=== PATIENT | female | born 1945 | race Caucasian/White ===

== ENCOUNTER 2020-08-26 14:51 | Emergency (ER) | payer MEDICARE, OTHER, SELFPAY ==
[2020-08-26 15:17] VITALS: BP 188/63; PULSE 73; RESP 14; TEMP 36.6; O2SAT 95; BMI 25.5
--- NOTE | 2020-08-26 15:21 | XRR_ITS ---
PROCEDURE INFORMATION: Exam: XR Chest, 1 View Exam date and time: 08/26/2020 3:23 PM Age: 75 years old Clinical indication: Cough and dyspnea; Additional info: Dyspnea/cough TECHNIQUE: Imaging protocol: XR of the chest Views: 1 view. COMPARISON: No relevant prior studies available. FINDINGS: Lungs: Mild interstitial congestion right lower lobe. No consolidation. Pleural spaces: Large left lower lobe pleural effusion. No pneumothorax. Heart/Mediastinum: Unremarkable. No cardiomegaly. Bones/joints: Unremarkable. XR/XR chest 1V portable [id number] IMPRESSION: 1. Large left lower lobe pleural effusion. 2. Mild interstitial congestion right lower lobe 3. Otherwise no acute findings.
--- NOTE | 2020-08-26 15:22 | ECG_ITS ---
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 Measurements Intervals [place] Rate: 72 P: 49 CO: 171 QRS: 47 QRSD: 73 T: 33 QT: 354 QTc: 388 Interpretive Statements SINUS RHYTHM WITH SINUS ARRHYTHMIA LOW QRS VOLTAGE [QRS DEFLECTION < 0.5/1.0 mV IN LIMB/CHEST LEADS] ANTEROSEPTAL MYOCARDIAL INFARCTION [40+ ms Q WAVE IN V1-V4], OF INDETERMINATE AGE No previous ECG available for comparison Electronically Signed On 08-26-2020 16:17:16 ROCKET MOTOR TESTER by Gil Gardner M.D. [id number]
[2020-08-26 15:40] LABS: Basophils # 0.1 10^3/uL (0.0-0.1); Basophils % 0.8 %; Eosinophils # 0.1 10^3/uL (0.0-0.8); Eosinophils % 1.3 %; Hematocrit 31.6 % (37.0-47.0); Hemoglobin 10.2 g/dL (11.5-15.3); Lymphocytes # 1.7 10^3/uL (0.8-4.8); Lymphocytes % 15.8 %; Mean Corpuscular HGB Conc 32.3 g/dL (30.0-36.0); Mean Corpuscular Hemoglobin 30.3 pg (28.0-34.0); Mean Corpuscular Volume 93.8 fL (81-99); Mean Platelet Volume 10.1 fL (7.4-10.4); Monocytes # 0.9 10^3/uL (0.2-0.9); Neutrophils # 7.87 10^3/uL (1.8-7.7); Neutrophils % 73.7 %; Nucleated Red Blood Cells % 0 %; Platelet Count 297 10^3/cmm (130-400); Red Blood Count 3.37 10^6/uL (4.1-5.3); Red Cell Distribution Width 15.4 % (12.1-15.1); White Blood Count 10.7 10^3/uL (4.0-10.0)
--- NOTE | 2020-08-26 15:40 | XRR_ITS ---
PROCEDURE INFORMATION: Exam: XR Chest, 3 Views Exam date and time: 08/26/2020 3:42 PM Age: 75 years old Clinical indication: Shortness of breath; Additional info: L pleural effusion TECHNIQUE: Imaging protocol: XR of the chest Views: 3 views. COMPARISON: CR (CHEST, ) 08/26/2020 3:20 PM FINDINGS: Lungs: A single decubitus view is presented the right side is down. The opacity seen in the left lung appears similar. No evidence of effusion is seen in the right lung. Pleural spaces: Left lower lobe pleural effusion. No pneumothorax. Heart/Mediastinum: Unremarkable. No cardiomegaly. Bones/joints: Unremarkable. Other findings: Repeat examination with the left-side down is recommended. XR/XR chest LT decubitus [id number] IMPRESSION: 1. Stable left lower lobe pleural effusion. 2. Negative for right side pleural effusion
--- NOTE | 2020-08-26 15:42 | W.ED.SOB ---
HPI - SOB/Dyspnea General: Chief Complaint: Shortness of Breath/Dyspnea Stated Complaint: Chest Pain, SOB Time Seen by Provider: 08/26/20 15:21 History of Present Illness: HPI Narrative: 75-year-old female presents to the emergency room with complaints of shortness of breath. She has also had some chest pain. They recently moved to this area from [place]. Her chest pain has mostly resolved. She does have some moderate dementia. She denies any nausea vomiting or diarrhea denies any fever minimally productive cough patient has a history of COPD and is a former smoker just quit smoking a few months ago. 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.) Associated symptoms: Reports cough; Deny abdominal pain, chest congestion, chest pain, diaphoresis, dizziness, extremity pain, fever(s), hemoptysis, lightheadedness, myalgias, nausea, orthopnea, palpitations, paresthesias, polydipsia, polyuria, rash, sense of impending doom, syncope or vomiting Review of Systems Const: Denies: fever(s) or diaphoresis Card: Denies: chest pain, palpitations, lightheadedness, syncope or orthopnea Resp: Denies: hemoptysis or chest congestion GI: Denies: abdominal pain, nausea or vomiting Musc: Denies: extremity pain Neuro: Denies: dizziness Endo: Denies: polyuria or polydipsia Physical Exam Const: COMMON NORMALS: no acute distress GENERAL APPEARANCE: cooperative and comfortable ORIENTATION/CONSCIOUSNESS: Yes awake, Yes oriented to person, Yes oriented to place and Yes oriented to time HENMT: COMMON NORMALS: normocephalic, atraumatic and hearing grossly normal bilaterally HEAD & SCALP: normocephalic and atraumatic Neck/C-Spine: COMMON NORMALS: no JVD Resp: COMMON NORMALS: normal respiratory effort, No retractions and No use of accessory muscles AUSCULTATION: crackles (Left base) Laterality: left Cardio: COMMON NORMALS: no JVD, regular rate, regular rhythm and No murmurs present (Cardio) RATE: regular rate RHYTHM: regular rhythm GI: COMMON NORMALS: Soft to palpation and No hepatosplenomegaly present AUSCULTATION: Yes normoactive bowel sounds PALPATION: Yes Soft to palpation, No Tenderness to palpation present (GI), No Guarding due to palpation present (GI) and Yes No hepatosplenomegaly present Extremity: COMMON NORMALS: normal to inspection, capillary refill normal, no clubbing, cyanosis or edema, no calf tenderness and no pedal edema Neuro: SENSORIUM/ORIENTATION: Yes oriented to person, Yes oriented to place and Yes oriented to time Skin: COMMON NORMALS: no rashes or lesions noted GENERAL SKIN EXAM: no rashes or lesions noted Course Vital Signs: Vital signs: Vital Signs Temperature 97.9 F 08/26/20 15:17 Pulse Rate 76 08/26/20 17:11 Respiratory Rate 21 H 08/26/20 17:11 Blood Pressure 189/78 08/26/20 17:11 Pulse Oximetry 94 08/26/20 17:11 MDM - SOB/Dyspnea MDM Narrative: Medical decision making narrative: Discussed with the patient and the daughter with her she has had this previously and she has had a left pleural effusion that has been been drained by thoracentesis at her doctor in [place]. She is stable now and I will think there is enough and there to warrant a thoracentesis at this point we will go ahead and discharge her home she would prefer not to go with any procedures at the moment. She does report chronic renal disease as well. Organ to go ahead and discharge her home and set her up to see Dr. Espinosa or malcom in the next few days. If she has any worsening problems return. Lab Data: Labs: Lab Results 08/26/20 08/26/20 08/26/20 Range/Units 15:33 15:33 15:33 WBC 10.7 H (4.0-10.0) 10^3/ uL RBC 3.37 L (4.1-5.3) 10^6/u L Hgb 10.2 L (11.5-15.3) g/dL Hct 31.6 L (37.0-47.0) % MCV 93.8 (81-99) fL MCH 30.3 (28.0-34.0) pg MCHC 32.3 (30.0-36.0) g/dL RDW 15.4 H (12.1-15.1) % Plt Count 297 (130-400) 10^3/c mm MPV 10.1 (7.4-10.4) fL Neut % (Auto) 73.7 % Lymph % (Auto) 15.8 % [place] % (Auto) 8.0 % Eos % (Auto) 1.3 % Baso % (Auto) 0.8 % Neut # (Auto) 7.87 H (1.8-7.7) 10^3/u L Lymph # (Auto) 1.7 (0.8-4.8) 10^3/u L [place] # (Auto) 0.9 (0.2-0.9) 10^3/u L Eos # (Auto) 0.1 (0.0-0.8) 10^3/u L Baso # (Auto) 0.1 (0.0-0.1) 10^3/u L Nucleated RBC % (a uto) 0 % Nucleated RBCs # 0.0 /100WBC Sodium 136 (136-145) mmol/L Potassium 4.3 (3.5-5.1) mmol/L Chloride 105 (98-107) mmol/L Carbon Dioxide 15 L (22-29) mmol/L Anion Gap 20.3 H (5-19) BUN 66 H (8-23) mg/dL Creatinine 3.7 H (0.5-0.9) mg/dL GFR Calculation Not Reportable Glucose 124 H (65-115) mg/dL Calculated Osmolal ity 302 H (285-295) mOsm/k g Calcium 9.1 (8.5-10.5) mg/dL Total Bilirubin 0.5 (0.15-1.2) mg/dL AST 12 (0-32) U/L ALT 6 (0-33) U/L Alkaline Phosphata se 76 (35-105) IU/L Troponin T Baselin e 61 H (0-10) ng/L Total Protein 6.3 L (6.6-8.7) g/dL Albumin 3.6 (3.5-5.2) g/dL Globulin 2.7 (1.3-4.6) g/dL Discharge Plan Discharge Patient Disposition: Home Clinical Impression: Pleural effusion, Congestive heart failure, COPD (chronic obstructive pulmonary disease) Condition: Stable Prescriptions: No Action atorvastatin 40 mg Tablet 40 mg PO BEDTIME@1900 RF: 0 amlodipine 5 mg Tablet 5 mg PO BID@0700,1900 RF: 0 isosorbide mononitrate 60 mg Tablet Extended Release 24 Hr 60 mg PO BID@ RF: 0 clonidine HCl 0.2 mg Tablet 0.2 mg PO BID@0700,190 RF: 0 Xanax 0.25 mg Tablet 0.25 - 0.5 mg PO DAILY PRN (Reason: Anxiety) RF: 0 Vitamin C 500 mg Tablet 500 mg PO DAILY@190 RF: 0 hydralazine 100 mg Tablet 100 mg PO TID@,, RF: 0 pantoprazole 40 mg Tablet,Delayed Release (Dr/Ec) 40 mg PO DAILY@0700 RF: 0 ferrous sulfate 325 mg (65 mg iron) Tablet 325 mg PO DAILY@1900 RF: 0 ibuprofen 200 mg Tablet 400 mg PO ONCE PRN (Reason: Pain) RF: 0 Lasix 20 mg Tablet See Rx Instructions .ROUTE .COMPLEX RF: 0 albuterol sulfate 90 mcg/actuation Hfa Aerosol Inhaler 2 puff INHALATION 6XD PRN (Reason: Shortness Of Breath) RF: 0 duloxetine 20 mg Capsule,Delayed Release(Dr/Ec) 20 mg PO DAILY@07 RF: 0 Vitamin D3 50 mcg (2,000 unit) Capsule 50 mcg PO DAILY@1900 RF: 0 potassium chloride 20 mEq Tablet Extended Release See Rx Instructions .ROUTE .COMPLEX RF: 0 Discharge Orders: Discharge ED (Routine); Ordered 08/26/20 Ordered By: Ashish Suarez Referrals: Irasema Charles MD [Primary Care Provider] - Cat Espinosa MD [Physician] - Discharge Diet: Usual diet Discharge Activity: Resume usual activity Activity Restrictions/Additional Instructions: Case management will call to set up an appointment with Dr. Espinosa for you. if you have worsening problems return to the emergency room Coding Level of Care Code ED Tear Down Man for Faye Fwd Exam Comprehensive
[2020-08-26 15:56] LABS: Alanine Aminotransferase 6 U/L (0-33); Albumin Level 3.6 g/dL (3.5-5.2); Alkaline Phosphatase 76 IU/L (35-105); Anion Gap 20.3 (5-19); Aspartate Amino Transferase 12 U/L (0-32); Blood Urea Nitrogen 66 mg/dL (8-23); Calcium 9.1 mg/dL (8.5-10.5); Carbon Dioxide 15 mmol/L (22-29); Chloride 105 mmol/L (98-107); Globulin 2.7 g/dL (1.3-4.6); Glucose 124 mg/dL (65-115); Osmolality Calculated 302 mOsm/kg (285-295); Potassium 4.3 mmol/L (3.5-5.1); Sodium 136 mmol/L (136-145); Total Bilirubin 0.5 mg/dL (0.15-1.2); Total Protein 6.3 g/dL (6.6-8.7)
[2020-08-26 15:57] LABS: Troponin(5th) Baseline 61 ng/L (0-10)
[2020-08-26 17:10] VITALS: BP 187/74; PULSE 77; RESP 20; O2SAT 94
[2020-08-26 17:11] VITALS: BP 189/78; PULSE 76; RESP 21; O2SAT 94
--- NOTE | 2020-08-30 11:26 | DCPLANNER ---
late entry - test case developer had message to schedule a follow up appointment for patient with [facility]. architectural practice manager called [facility], spoke with Caryn, gave patients information to clinic. A follow up appointment was scheduled for 08.29.20 - patient did attend appointment.
== END 2020-08-26 17:14 | disposition home or self-care (01) ==
PROVIDERS: Emergency Provider Family Medicine; PCP Family Medicine
DX: J90 Pleural effusion, not elsewhere classified (principal); I11.0 Hypertensive heart disease with heart failure; I50.9 Heart failure, unspecified; J44.9 Chronic obstructive pulmonary disease, unspecified; F03.90 Unspecified dementia, unspecified severity, without behavioral disturbance, psychotic disturbance, mood disturbance, and anxiety
CPT/HCPCS: 12345; 71045; 80053; 84484; 85025; 93005; 99282; 99283

== ENCOUNTER 2020-08-30 20:57 | Inpatient (IN) | payer MEDICARE, OTHER, SELFPAY ==
[2020-08-30] VITALS (8 sets, daily range): BP systolic 159–165; BP diastolic 48–59; PULSE 75–79; RESP 14–18; TEMP 36.7; O2SAT 92–94; BMI 25.5
--- NOTE | 2020-08-30 21:06 | ECG_ITS ---
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 Measurements Intervals [place] Rate: 80 P: 46 RI: 157 QRS: 49 QRSD: 80 T: 68 QT: 351 QTc: 405 Interpretive Statements SINUS RHYTHM WITH OCCASIONAL VENTRICULAR PREMATURE COMPLEXES LOW QRS VOLTAGE IN PRECORDIAL LEADS [QRS DEFLECTION < 1.0 mV IN CHEST LEADS] NONSPECIFIC ST & T-WAVE ABNORMALITY Compared to ECG 08/26/2020 15:15:30 Ventricular premature complex(es) now present T-wave abnormality now present Sinus arrhythmia no longer present Myocardial infarct finding no longer present Electronically Signed On 08-31-2020 20:25:51 ASSURANCE ENGINEER by Natalie De La Torre M.D. [id number]
--- NOTE | 2020-08-30 21:06 | XRR_ITS ---
PROCEDURE INFORMATION: Exam: XR Chest, 1 View Exam date and time: 08/30/2020 9:25 PM Age: 75 years old Clinical indication: Chest pain; Additional info: Cp TECHNIQUE: Imaging protocol: XR of the chest Views: 1 view. COMPARISON: CR (CHEST, ) 08/26/2020 3:54 PM FINDINGS: Lungs: Unremarkable. No consolidation. Pleural spaces: Pleural fluid on the right has increased. Left pleural fluid is either stable or slightly decreased. Heart/Mediastinum: Heart partially obscured but suspected to be enlarged and without obvious change. Bones/joints: No acute findings. XR/XR chest 1V portable [id number] IMPRESSION: Increase in right pleural fluid and stable or slightly decreased left pleural fluid. Pleural fluid bilaterally is moderate to large.
--- NOTE | 2020-08-30 21:29 | ED_ITS ---
HPI - Chest Pain General: Chief Complaint: Chest Pain Stated Complaint: SOB/CHEST TIGHTNESS Time Seen by Provider: 08/30/20 21:00 Source: patient and EMS Mode of arrival: EMS Limitations: no limitations History of Present Illness: HPI narrative: 75-year-old female who has a history of COPD along with dementia. Patient seen Dr. Christian Scott last week and was prescribed an albuterol nebulizer. Patient states she is continued have some shortness of breath. She is in no distress here currently is 95% on room air. She had mild chest pain. She denies any worsening. Factors. Denies any fever. Associated symptoms: Reports dyspnea; Deny abdominal pain, fever(s), nausea or vomiting Review of Systems Const: Denies: fever(s), chills, body aches or change in appetite Eyes: Denies: blurry vision or eye discomfort ENMT: Denies: throat pain or dental pain Card: Reports: chest pain Resp: Reports: dyspnea GI: Denies: abdominal pain, nausea, vomiting or diarrhea : Denies: dysuria Musc: Denies: neck pain or back pain Skin/Breast: Denies: rash Neuro: Denies: headache(s) Psych: Denies: depression Sunday/Lymph: Denies: easy bruising All/Imm: Denies: urticaria PFSH ED PFSH: Medical History Anemia Barretts esophagus Dementia Renal failure Stenosis of peripheral vascular stent Type 2 diabetes mellitus Surgical History History of renal stent History of thoracentesis Stented coronary artery Family History Son Diabetes Brother Cancer Sister Lung disease Father Cirrhosis Mother CAD (coronary artery disease) Social History Smoking and tobacco status: former smoker Quit status (tobacco): has quit using tobacco Year quit tobacco: 2020-Hx of 1PPD x 60 Year Second hand smoke exposure: Yes Smoking risk assessment/counseling performed?: No Alcohol intake: current Alcohol intake frequency: holidays/special occasions only Alcohol type: wine Counseling given: No Counseling given: No Caregiver/support person: Yes Lives independently: Yes Household members: family Marital status: / Current occupational status: retired History of recent travel: No Current gender identity: Female Physical Exam Const: COMMON NORMALS: no acute distress, patient oriented x3 and healthy appearing HENMT: COMMON NORMALS: normocephalic and atraumatic HEAD & SCALP: normocephalic and atraumatic Eye: COMMON NORMALS: Equal, round and reactive pupils present and EOMs intact bilaterally PUPIL: Yes Equal, round and reactive pupils present Neck/C-Spine: COMMON NORMALS: full ROM and supple Chest: COMMONS NORMALS: normal inspection of the chest and normal palpation of entire chest wall Resp: COMMON NORMALS: normal respiratory effort, No retractions, No use of accessory muscles and clear to auscultation bilaterally AUSCULTATION: clear to auscultation bilaterally Cardio: COMMON NORMALS: regular rate, regular rhythm and No murmurs present (Cardio) RATE: regular rate RHYTHM: regular rhythm GI: COMMON NORMALS: Normal to inspection, nondistended, normoactive bowel sounds present, Soft to palpation, non-tender and no masses PALPATION: Yes Soft to palpation Extremity: COMMON NORMALS: normal to inspection and full ROM Neuro: COMMON NORMALS: patient oriented x3, moves all extremities and no focal motor deficits Psych: COMMON NORMALS: mental status grossly normal, Normal thought process present and cooperative THOUGHT PROCESS: Normal thought process present Skin: COMMON NORMALS: no rashes or lesions noted and no wounds GENERAL SKIN EXAM: no rashes or lesions noted Course Vital Signs: Vital signs: Vital Signs Temperature 98.1 F 08/30/20 21:07 Pulse Rate 77 08/30/20 21:11 Respiratory Rate 17 08/30/20 21:11 Blood Pressure 159/59 08/30/20 21:11 Pulse Oximetry 93 08/30/20 21:11 MDM - Chest Pain MDM Narrative: Medical decision making narrative: Patient presents here with dyspnea likely from her COPD. She is in no severe distress here. Patient is found to be anemic. Her hemoglobin here is 6.5 and will require transfusion. I did a rectal exam showed brown stool but was Hemoccult positive. She has no sig ns of massive GI bleed at this time. I did consult Dr. Hines and I spoke to hospitalist will admit. Lab Data: Labs: Lab Results 08/30/20 08/30/2008/30/21 Range/Units 21:20 21:20 21:20 WBC 9.6 (4.0-10.0) 10^3/ uL RBC 2.16 L (4.1-5.3) 10^6/u L Hgb 6.5 L* (11.5-15.3) g/dL Hct 21.0 L (37.0-47.0) % MCV 97.2 (81-99) fL MCH 30.1 (28.0-34.0) pg MCHC 31.0 (30.0-36.0) g/dL RDW 15.8 H (12.1-15.1) % Plt Count 235 (130-400) 10^3/c mm MPV 10.9 H (7.4-10.4) fL Neut % (Auto) 90.0 % Lymph % (Auto) 5.4 % [place] % (Auto) 3.7 % Eos % (Auto) 0.1 % Baso % (Auto) 0.3 % Neut # (Auto) 8.67 H (1.8-7.7) 10^3/u L Lymph # (Auto) 0.5 L (0.8-4.8) 10^3/u L [place] # (Auto) 0.4 (0.2-0.9) 10^3/u L Eos # (Auto) 0.0 (0.0-0.8) 10^3/u L Baso # (Auto) 0.0 (0.0-0.1) 10^3/u L Nucleated RBC % (a uto) 0 % Nucleated RBCs # 0.0 /100WBC Specimen Type Sample Site ABG pH (7.35-7.45) ABG pCO2 (35-45) mmHg ABG pO2 (80.0-100.0) mmH g ABG HCO3 (22-26) mmol/L ABG Base Excess (-2.0-2.0) mmol/ L Sandro Test Hematocrit (37-47) % O2 Delivery Device Supervisor Instant Potato Processing ID Sodium 137 (136-145) mmol/L Potassium 4.0 (3.5-5.1) mmol/L Chloride 106 (98-107) mmol/L Carbon Dioxide 13 L (22-29) mmol/L Anion Gap 22.0 H (5-19) BUN 79 H (8-23) mg/dL Creatinine 4.1 H (0.5-0.9) mg/dL GFR Calculation Not Reportable Glucose 142 H (65-115) mg/dL Calculated Osmolal ity 310 H (285-295) mOsm/k g Calcium 8.8 (8.5-10.5) mg/dL Total Bilirubin 0.3 (0.15-1.2) mg/dL AST 13 (0-32) U/L ALT 8 (0-33) U/L Alkaline Phosphata se 62 (35-105) IU/L Troponin T Baselin e 58 H (0-10) ng/L NT-Pro-B Natriuret Pep 7862 H (0-450) pg/mL Total Protein 5.9 L (6.6-8.7) g/dL Albumin 3.2 L (3.5-5.2) g/dL Globulin 2.7 (1.3-4.6) g/dL 08/30/20 Range/Units 22:40 WBC (4.0-10.0) 10^3/ uL RBC (4.1-5.3) 10^6/u L Hgb (11.5-15.3) g/dL Hct (37.0-47.0) % MCV (81-99) fL MCH (28.0-34.0) pg MCHC (30.0-36.0) g/dL RDW (12.1-15.1) % Plt Count (130-400) 10^3/c mm MPV (7.4-10.4) fL Neut % (Auto) % Lymph % (Auto) % [place] % (Auto) % Eos % (Auto) % Baso % (Auto) % Neut # (Auto) (1.8-7.7) 10^3/u L Lymph # (Auto) (0.8-4.8) 10^3/u L [place] # (Auto) (0.2-0.9) 10^3/u L Eos # (Auto) (0.0-0.8) 10^3/u L Baso # (Auto) (0.0-0.1) 10^3/u L Nucleated RBC % (a uto) % Nucleated RBCs # /100WBC Specimen Type Arterial Sample Site Brachial, right ABG pH 7.40 (7.35-7.45) ABG pCO2 24.5 L (35-45) mmHg ABG pO2 63.3 L (80.0-100.0) mmH g ABG HCO3 15.0 L (22-26) mmol/L ABG Base Excess -9.0 L (-2.0-2.0) mmol/ L Sandro Test N/a Hematocrit 20.1 L (37-47) % O2 Delivery Device Room air Supervisor Instant Potato Processing ID [id number] Sodium (136-145) mmol/L Potassium (3.5-5.1) mmol/L Chloride (98-107) mmol/L Carbon Dioxide (22-29) mmol/L Anion Gap (5-19) BUN (8-23) mg/dL Creatinine (0.5-0.9) mg/dL GFR Calculation Glucose (65-115) mg/dL Calculated Osmolal ity (285-295) mOsm/k g Calcium (8.5-10.5) mg/dL Total Bilirubin (0.15-1.2) mg/dL AST (0-32) U/L ALT (0-33) U/L Alkaline Phosphata se (35-105) IU/L Troponin T Baselin e (0-10) ng/L NT-Pro-B Natriuret Pep (0-450) pg/mL Total Protein (6.6-8.7) g/dL Albumin (3.5-5.2) g/dL Globulin (1.3-4.6) g/dL EKG Data^: EKG 1: Attestation: I personally reviewed and interpreted this EKG as follows: EKG interpretation date: 08/30/20 EKG interpretation time: 21:05 Interpretation: nsr hr [address] or t wave abnormalities qrs 80 qtc 386 Discharge Plan Discharge Patient Disposition: Admitted As Inpatient Clinical Impression: COPD (chronic obstructive pulmonary disease) Qualifiers: COPD type: unspecified COPD Qualified Code(s): J44.9 - Chronic obstructive pulmonary disease, unspecified Anemia Qualifiers: Anemia type: unspecified type Qualified Code(s): D64.9 - Anemia, unspecified Condition: Stable Coding Level of Care Code ED Entry Level Sales Associate for g Fwd Exam Comprehensive
[2020-08-30 21:41] LABS: Basophils % 0.3 %; Eosinophils % 0.1 %; Lymphocytes # 0.5 10^3/uL (0.8-4.8); Lymphocytes % 5.4 %; Mean Corpuscular Hemoglobin 30.1 pg (28.0-34.0); Mean Corpuscular Volume 97.2 fL (81-99); Mean Platelet Volume 10.9 fL (7.4-10.4); Monocytes # 0.4 10^3/uL (0.2-0.9); Monocytes % 3.7 %; Neutrophils # 8.67 10^3/uL (1.8-7.7); Nucleated Red Blood Cells % 0 %; Platelet Count 235 10^3/cmm (130-400); Red Blood Count 2.16 10^6/uL (4.1-5.3); Red Cell Distribution Width 15.8 % (12.1-15.1); White Blood Count 9.6 10^3/uL (4.0-10.0)
[2020-08-30 21:51] LABS: Troponin(5th) Baseline 58 ng/L (0-10)
[2020-08-30 21:58] LABS: Alanine Aminotransferase 8 U/L (0-33); Albumin Level 3.2 g/dL (3.5-5.2); Alkaline Phosphatase 62 IU/L (35-105); Aspartate Amino Transferase 13 U/L (0-32); Blood Urea Nitrogen 79 mg/dL (8-23); Calcium 8.8 mg/dL (8.5-10.5); Carbon Dioxide 13 mmol/L (22-29); Chloride 106 mmol/L (98-107); Globulin 2.7 g/dL (1.3-4.6); Glucose 142 mg/dL (65-115); NT Pro B Type Natriuretic Pept 7862 pg/mL (0-450); Osmolality Calculated 310 mOsm/kg (285-295); Sodium 137 mmol/L (136-145); Total Bilirubin 0.3 mg/dL (0.15-1.2); Total Protein 5.9 g/dL (6.6-8.7)
[2020-08-30 22:33] LABS: Hemoglobin 6.5 g/dL (11.5-15.3)
[2020-08-30] MEDS: ipratropium-albuterol 3 mL Neb INHALATION (22:40)
[2020-08-30 22:52] LABS: ABG PCO2 24.5 mmHg (35-45); Arterial Blood Gas Hematocrit 20.1 % (37-47); Blood Gas Operator Identificat HARKR; Blood Gas Sample Site Brachial, right; Blood Gas Sample Type Arterial; Oxygen Device ROOM AIR; PO2 ABG 63.3 mmHg (80.0-100.0)
--- NOTE | 2020-08-30 23:06 | ECG_ITS ---
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 Measurements Intervals [place] Rate: 79 P: 40 NE: 155 QRS: 64 QRSD: 86 T: 49 QT: 374 QTc: 430 Interpretive Statements SINUS RHYTHM WITH OCCASIONAL VENTRICULAR PREMATURE COMPLEXES LOW QRS VOLTAGE IN PRECORDIAL LEADS [QRS DEFLECTION < 1.0 mV IN CHEST LEADS] NONSPECIFIC T-WAVE ABNORMALITY Compared to ECG 08/30/2020 21:05:27 Ventricular premature complex(es) no longer present T-wave abnormality still present Electronically Signed On 08-31-2020 20:31:38 PUNCH FINISHER by Natalie De La Torre M.D. [id number]
--- NOTE | 2020-08-30 23:14 | P.HP_ITS ---
Providers/Chief Complaint Primary Care Provider: Irasema Charles MD Chief Complaint: SOB/CHEST TIGHTNESS History of Present Illness Tania Kiser is a 75 year old female with a history of GI bleed, COPD, hyperlipidemia and hypertension presented to the emergency department with a complaint of progressive shortness of breath and weakness. Patient relates that her symptoms to COPD exacerbation. Blood work in the ED demonstrated severe anemia with hemoglobin of 6.5. Chest x-ray demonstrated bilateral pleural effusion, right greater than left. Patient denied any melena or hematemesis. 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 This procedure was done in [place]. Has to is positive for Hemoccult blood. Patient states that she just moved here. Dr. Ronny tuttle was contacted and case discussed with him. He is okay with admission to the hospitalist service for him to consult. Patient is admitted for further management. Review of Systems Narrative: Except as documented, all other systems reviewed and negative. Medications/Allergies Home Medications Medication Instructions Recorded Confirmed Last Taken Type albuterol sulfate 2 puff INHALATION 6XD PRN 08/26/20 08/29/20 08/26/20 History alprazolam [Xanax] 0.25 - 0.5 mg PO DAILY PRN 08/26/20 08/29/20 08/26/20 History amlodipine 5 mg PO BID@0700,189908/26/20 08/29/20 08/26/20 History ascorbic acid (vitamin C) [Vitamin 500 mg PO DAILY@189908/26/20 08/29/20 08/25/20 History C] atorvastatin 40 mg PO BEDTIME@189908/26/20 08/29/20 08/25/20 History cholecalciferol (vitamin D3) 50 mcg PO DAILY@189908/26/20 08/29/20 08/25/20 History [Vitamin D3] clonidine HCl 0.2 mg PO BID@0700,189908/26/20 08/29/20 08/26/20 History duloxetine 20 mg PO DAILY@07 08/26/20 08/29/20 08/26/20 History ferrous sulfate 325 mg PO DAILY@189908/26/20 08/29/20 08/25/20 History furosemide [Lasix] See Rx Instructions .ROUTE .COMPLEX 08/26/20 08/29/20 08/25/20 History hydralazine 100 mg PO TID@07,12,19 08/26/20 08/29/20 08/26/20 History ibuprofen 400 mg PO ONCE PRN 08/26/20 08/29/20 08/26/20 History 400 mg isosorbide mononitrate 60 mg PO BID@07,19 08/26/20 08/29/20 08/26/20 History pantoprazole 40 mg PO DAILY@0700 08/26/20 08/29/20 08/26/20 History potassium chloride See Rx Instructions .ROUTE .COMPLEX 08/26/20 08/29/20 08/26/20 History budesonide 0.5 mg/2 mL suspension 0.5 mg INHALATION BID 30 Days #120 08/29/20 08/29/20 Unknown Rx for nebulization ml furosemide 20 mg tablet 40 mg PO DAILY 30 Days #60 tab 08/29/20 08/29/20 Unknown Rx ipratropium 0.5 mg-albuterol 3 mg 3 ml INHALATION QID 30 Days #320 ml 08/29/20 08/29/20 Unknown Rx (2.5 mg base)/3 mL nebulization soln Allergies Allergy/AdvReac Type Severity Reaction Status Date / Time No Known Allergies Allergy Verified 08/30/20 21:10 PFSH Acute PFSH: Medical History Anemia Barretts esophagus Dementia Renal failure Stenosis of peripheral vascular stent Type 2 diabetes mellitus Surgical History History of renal stent History of thoracentesis Stented coronary artery Family History Son Diabetes Brother Cancer Sister Lung disease Father Cirrhosis Mother CAD (coronary artery disease) Social History Smoking and tobacco status: former smoker Quit status (tobacco): has quit using tobacco Year quit tobacco: 2020-Hx of 1PPD x 60 Year Second hand smoke exposure: Yes Smoking risk assessment/counseling performed?: No Alcohol intake: current Alcohol intake frequency: holidays/special occasions only Alcohol type: wine Counseling given: No Counseling given: No Caregiver/support person: Yes Lives independently: Yes Household members: family Marital status: / Current occupational status: retired History of recent travel: No Current gender identity: Female Vitals/I&O/Wt Last Vital Signs Temp 98.1 F 08/30/20 21:07 Pulse 75 08/30/20 23:01 Resp 18 08/30/20 23:01 BP 163/48 08/30/20 23:01 Pulse Ox 94 08/30/20 23:01 Weight last 48 hrs Weight 59.421 kg Physical Exam Const: COMMON NORMALS: no acute distress, patient oriented x3 and alert HENMT: COMMON NORMALS: normocephalic and atraumatic MOUTH: Normal oral and palatal mucosa present and moist mucous membranes abnormal Eye: COMMON NORMALS: Equal, round and reactive pupils present, EOMs intact bilaterally, conjunctivae normal and no scleral icterus Neck/C-Spine: COMMON NORMALS: no lymphadenopathy, supple and no JVD Lymph: LYMPHATIC: no lymphadenopathy noted Chest: COMMONS NORMALS: normal inspection of the chest Resp: COMMON NORMALS: normal respiratory effort, No use of accessory muscles and clear to auscultation bilaterally Cardio: COMMON NORMALS: regular rate, regular rhythm, S1 normal heart sound present and S2 normal heart sound present GI: COMMON NORMALS: Normal to inspection, nondistended, normoactive bowel sounds present, Soft to palpation, non-tender and No hepatosplenomegaly present : COMMON NORMALS: Yes no CVA tenderness Back/Pelvis: COMMON NORMALS: no CVA tenderness and thoraco-lumbar ROM normal Extremity: COMMON NORMALS: normal to inspection, no clubbing, cyanosis or edema, no calf tenderness and no pedal edema Neuro: COMMON NORMALS: patient oriented x3, CN's II-XII intact bilaterally and no focal motor deficits Psych: COMMON NORMALS: mental status grossly normal, Normal thought process present, cooperative and speech normal APPEARANCE: Yes grossly normal Skin: COMMON NORMALS: no rashes or lesions noted, no wounds, no jaundice and no petechiae Data : 08/31/20 00:30 08/30/20 21:20 A&P Assessment and plan (1) GI bleed: Status: Acute (2) Acute blood loss anemia: Status: Acute (3) Pleural effusion: Status: Acute (4) COPD (chronic obstructive pulmonary disease): Status: Acute Qualifiers: COPD type: unspecified COPD Qualified Code(s): J44.9 - Chronic obstructive pulmonary disease, unspecified (5) Chronic diastolic heart failure: Status: Acute Additional A&P Information Admit patient to the medical floor. Transfuse 2 unit PRBC. We will start IV Protonix 40 mg twice daily Monitor H&H every 6 hours and transfuse as needed for hemoglobin less than 7. Consults to general surgery to evaluate for endoscopy. Continue bronchodilators for COPD. Continue home dose Lasix for pleural effusion. Monitor for active bleeding. Supplemental oxygen as needed. Attestations Medical Necessity Statement*: Patient's need to be hospitalized for evaluation of severe acute anemia and treatment. She is expected to spend more than 2 midnights. Time Spent in Patient Care: (>than 50% of time spent in counselling and/or direct pt care on unit) . 72 minutes. Coding Level of Care Code Acute Fabric Worker Supervisor for g Fwd Exam Comprehensive Diagnoses GI bleed K92.2 Acute blood loss anemia D62 Pleural effusion J90 COPD (chronic obstructive pulmonary disease) J44.9 COPD type: unspecified COPD Chronic diastolic heart failure I50.32
--- NOTE | 2020-08-30 23:19 | PC.NURSE ---
EKG done at 2315 and shown to ER doctor
[2020-08-30 23:24] LABS: Troponin 5 2HR 55.47 ng/L (0-10)
[2020-08-30 23:34] LABS: Troponin 5 2HR Delta -2.53 ABS# (0-10)
[2020-08-31] VITALS (31 sets, daily range): BP systolic 109–187; BP diastolic 52–78; PULSE 79–108; RESP 16–21; TEMP 35.9–37; O2SAT 90–97; BMI 25.5
--- NOTE | 2020-08-31 | CT_ITS ---
WS: [id number] CT ABDOMEN AND PELVIS NONCONTRAST HISTORY: POSSIBLE FREE AIR TECHNIQUE: Imaging performed through the abdomen and pelvis. Coronal and sagittal reformats are submi tted. All CT scans at [facility] use at least one of these dose optimization techniques: automated exposure control; mA and/or kV adjustment per patient size (includes targeted exams where d ose is matched to clinical indication); or iterative reconstruction. DLP: 726.66 mGy.cm COMPARISON: 08/31/2020 Lower thorax: Anasarca, bilateral pleural effusions, cardiomegaly and pericardial effusion. Liver: Mild hepatic congestion. Gallbladder: Prior cholecystectomy. Pancreas: Poorly visualized and surrounded by edema. Spleen: Normal. Adrenal glands: Not visualized. Right kidney: Moderate atrophy. Poorly visualized. Left kidney: Normal size. Poorly visualized. Aorta: Severe atherosclerosis. Severe calcifications extending into the mesenteric arteries. There is a small amount of free fluid within the abdomen. There is extensive mesenteric edema. Small amount of free fluid. No free air is identified. All of the air does appear to be within the GI tract on this exam. GI tract: Poorly visualized with mild constipation. Abdominal wall: Diffuse severe anasarca. Pelvis: Normal. Osseous structures: Prior RIGHT hip arthroplasty. CT/CT abdomen pelvis wo con [id number] IMPRESSION: 1. Technically this is a very limited evaluation of the abdomen and pelvis. 2. No free air identified. The air noted within the upper abdomen on the recen t chest CT does appear to be within the GI tract. 3. Severe anasarca with a small amount of ascites. Moderate bilateral pleural effusions and cardiomegaly.
--- NOTE | 2020-08-31 01:42 | PC.NURSE ---
Ice chips ok per Dr Marie, 08/31/20 @0142. Pt may have endoscopy in the morning.
[2020-08-31 01:58] LABS: Hematocrit 19.7 % (37.0-47.0); Hemoglobin 6.2 g/dL (11.5-15.3)
[2020-08-31] MEDS: acetaminophen 325 mg Tablet 650 MG PO ×2 (02:28→21:53)
[2020-08-31] MEDS: pantoprazole 40 mg SDV IV ×2 (02:29→13:43)
--- NOTE | 2020-08-31 02:40 | PC.NURSE ---
DAUGHTER ALLOWED TO STAY ON UNIT PER DR TIRADO AND BRASS BOBBIN WINDER JACKSON. PT HAS DEMENTIA AND REQUIRES COMPUTER TECH ATTENTION CRITICAL LABS CALLED TO PHYSICIAN HGB 6.2 AND HCT 19.7
--- NOTE | 2020-08-31 03:06 | ECG_ITS ---
[facility] Test Date: 2020-08-31 Pat Name: Tania Kiser Department: Room: 263 Gender: Female Publication Distributor: : [id number] Requested By: Mark Rivas Order Number: [id number] Reading MD: ALEC NEWTON Measurements Intervals Kinder Rate: 81 P: FL: QRS: 88 QRSD: 74 T: 34 QT: 353 QTc: 412 Interpretive Statements sinus RHYTHM LOW QRS VOLTAGE IN PRECORDIAL LEADS [QRS DEFLECTION < 1.0 mV IN CHEST LEADS] SEPTAL MYOCARDIAL INFARCTION [40+ ms Q WAVE IN V1/V2], OF INDETERMINATE AGE Compared to ECG 08/30/2020 23:14:32 Supraventricular rhythm now present there is no change Electronically Signed On 09-02-2020 21:36:05 VIDEO TAPE EDITOR by ALEC NEWTON [id number]
--- NOTE | 2020-08-31 03:52 | PC.NURSE ---
bLOOD ADMINISTRATION BEGAN TRANSFUSION AT 0313, VITALS STABLE, BEGAN RATE AT 75ML/HR, AT 0345 RATE WAS INCREASED TO 125ML/HR. VITAL SIGNS STILL STABLE, NO S/S OF REACTION TO BLOOD. WILL CONTINUE TO MONITOR
--- NOTE | 2020-08-31 04:15 | PC.NURSE ---
PHYSICIAN CONTACT HOLD H&H LABS AT 0615. PT IS RECEIVING RBC'S AT THIS TIME. PT IS CONFUSED/DEMENTIA, ORDERED 2MG HALDOL IVP ONCE NOW.
[2020-08-31] MEDS: haloperidol inj 5 mg/mL INJ 1 mL 2 MG IVP (04:42)
--- NOTE | 2020-08-31 05:56 | PC.NURSE ---
LAB NOTICE hold H & H UNTIL BLOOD ADMINISTRATION IS FINISHED
--- NOTE | 2020-08-31 06:00 | US_ITS ---
WS: [id number] Bilateral chest ultrasound. HISTORY: Severe pleuritic pain. There are small to moderate bilateral pleural effusions, RIGHT slightly greater than the LEFT. US/US chest [id number] IMPRESSION: Small to moderate bilateral pleural effusions. Will attempt thoracentesis after consent has been obtained.
--- NOTE | 2020-08-31 06:08 | PC.NURSE ---
PAIN/DEMENTIA PAIN RATED 7 ON 1-10 PAIN SCALE ALL NIGHT, DEMENTIA, NEEDS TO BE 1:1, AND PT IS NOT RESPONSIVE TO HALDOL
--- NOTE | 2020-08-31 06:09 | PC.NURSE ---
HALDOL INEFFECTIVE PT STILL AGITATED, DAUGHTER AT BEDSIDE
[2020-08-31] MEDS: hyDRALAzine 50 mg Tablet 100 MG PO (06:27)
[2020-08-31] MEDS: duloxetine 20 mg Capsule PO (06:27)
[2020-08-31] MEDS: amlodipine 5 mg Tablet PO (06:28)
[2020-08-31] MEDS: sodium chloride 0.9% (100 ml) 100 ML 200 ML (06:45)
[2020-08-31] MEDS: isosorbide mononitrate ER 60 mg Tablet PO (06:46)
[2020-08-31] MEDS: cloNIDine 0.1 mg Tablet 0.2 MG PO ×2 (06:46→18:28)
--- NOTE | 2020-08-31 07:11 | PC.NURSE ---
NEEDS SOCIAL WORK INTERVENTION PT IS WITH HER DAUGHTER AT BEDSIDE, DAUGHTER IS VERBALLY AGGRESSIVE WITH PT, SAYING THINGS LIKE SHUT THE FUCK UP MOM , mY GOD, WHY CAN'T YOU FUCKING STOP BEING LIKE THIS. pT HAS DEMENTIA, ARRIVED IN [place] DAYS AGO TO LIVE WITH OTHER DAUGHTER WHO IS WORKING. PT WAS HOSPITALIZED IN [place] WITH SAME S/S THIS ADMISSION IN THE STATE OF [place]. NURSE HAS CONCERNS REGARDING THE CARE AND SAFETY OF THIS PATIENT. pT HAS BEEN AGITATED AND NERVOUS SINCE ARRIVING TO THE FLOOR REQUESTING HER OTHER DAUGHTER TO COME TAKE HER HOME. KEY OPERATOR NOTIFIED OF NURSING CONCERN.
--- NOTE | 2020-08-31 07:48 | PM.PN ---
Subjective Subjective: Interval history: Patient reports that she has significant right-sided chest pain every time she breathes his and. She reports being short of breath. She reports that she wants to go home. Daughter at bedside reports that she does have dementia and frequently does not make sense. Discussed with patient's other daughter LOREE over the phone in the room who reports that patient arrived last week and already saw Dr. Espinosa and apparently his office scanned patient's medical records to the system. Dr. Espinosa placed patient on nebulizer treatments and patient reports that she has been feeling better with them. She has significant COPD and quit smoking last year. Last year she had renal artery stents placed and daughter reports that they could not go through her lower extremities because of severe peripheral vascular disease and had to do procedure via arm. She never had coronary artery stents as per daughters. She did have lower extremity stents. She bears diagnosis of diastolic CHF. It appears that she has chronic kidney disease. She reports having frequent dry cough. Patient noted to have large right pleural effusion and I am currently concerned for underlying empyema. Discussed with daughters to have thoracentesis performed and both daughters were okay to proceed. Patient is a very poor historian and appears to have chronic at least moderate dementia and frequently replies I do not know . She knew she is in the hospital but did not know which one. Vitals/I&O/Wt Last Vital Signs Temp 97.6 F 08/31/20 06:45 Pulse 81 08/31/20 06:45 Resp 16 08/31/20 06:45 BP 171/58 08/31/20 06:46 Pulse Ox 95 08/31/20 06:45 08/30/20 08/31/20 08/31/20 22:59 06:59 14:59 Intake Total 100 / 100 Balance 100 / 100 Weight last 48 hrs Weight 59.421 kg Weight 59.421 kg Physical Exam Const: GENERAL APPEARANCE: cooperative and well kempt ORIENTATION/CONSCIOUSNESS: Yes oriented to person and Yes oriented to place OTHER: Appears in mild distress. Resp: COMMON NORMALS: normal respiratory effort OTHER: Decreased right base air movement. Cardio: COMMON NORMALS: regular rate, regular rhythm and S2 normal heart sound present RATE: regular rate RHYTHM: regular rhythm HEART SOUNDS: S2 normal heart sound present OTHER: No lower extremity edema GI: COMMON NORMALS: Normal to inspection, nondistended, normoactive bowel sounds present, Soft to palpation and non-tender PALPATION: Yes Soft to palpation Neuro: COMMON NORMALS: no focal motor deficits SENSORIUM/ORIENTATION: Yes oriented to person and Yes oriented to place Psych: APPEARANCE: Yes well [place] Data : 08/31/20 00:30 08/30/20 21:20 A&P Assessment and plan (1) GI bleed: Status: Acute (2) Acute blood loss anemia: Status: Acute (3) Pleural effusion: Status: Acute (4) COPD (chronic obstructive pulmonary disease): Currently not in exacerbation Status: Acute Qualifiers: COPD type: unspecified COPD Qualified Code(s): J44.9 - Chronic obstructive pulmonary disease, unspecified (5) Chronic diastolic heart failure: Status: Acute (6) Type 2 diabetes mellitus: Check hemoglobin A1c Status: Inactive Additional A&P Information Discontinue any NSAIDs and vitamin C. Patient noted to have ibuprofen in her medication list Hold blood pressure medications for now. Obtain CT scan of the chest without contrast and echocardiogram/renal ultrasound. PE cannot be completely ruled out but felt unlikely and in any case patient cannot be anticoagulated. Proceed with thoracentesis with fluid analysis. Hold antibiotics for now Obtain renal ultrasound. Will address CODE STATUS with patient's family when they come to visit. Overall I think patient has poor long-term prognosis. Attestations Medical Necessity Statement*: Patient with multiorgan problems and severe chest pain with concern for pneumonia requires close inpatient monitoring and treatment. Time Spent in Patient Care: Greater than 35 minutes (>than 50% of time spent in counselling and/or direct pt care on unit). Coding Level of Care Code Acute Old Testament Professor for [facility] Fwd Diagnoses GI bleed K92.2 Acute blood loss anemia D62 Pleural effusion J90 COPD (chronic obstructive pulmonary disease) J44.9 COPD type: unspecified COPD Chronic diastolic heart failure I50.32 Type 2 diabetes mellitus E11.9
--- NOTE | 2020-08-31 08:01 | USCV_ITS ---
Tania Kiser Age: 75 Gender: F : 1945 Exam Date: 08/31/2020 08:35 Ordering Phys: Tyrell Cm MD Technologist: Jonah Milan Exam Location: [facility] [place] Indication: HEART FAILURE BP: 123 / 65 HR: 84 Rhythm: Sinus Technical Quality: Fair MEASUREMENTS (Male / Female) Normal Values 2D ECHO LV Diastolic Diameter PLAX 4.3 cm 4.2 - 5.9 / 3.9 - 5.3 cm LV Systolic Diameter PLAX 2.1 cm IVS Diastolic Thickness 1.0 cm 0.6 - 1.0 / 0.6 - 0.9 cm IVS Systolic Thickness 1.8 cm LVPW Diastolic Thickness 1.5 cm 0.6 - 1.0 / 0.6 - 0.9 cm LVPW Systolic Thickness 1.7 cm LVOT Diameter 2.1 cm LV Ejection Fraction 2D Teich 82.4 % LV Ejection Fraction MOD 2C 65.0 % LV Ejection Fraction 2C AL 64.6 % LA Diameter 3.9 cm LA Width 5.0 cm LA Height 6.2 cm RA Width 3.6 cm RA Height 4.7 cm M-MODE LV Diastolic Diameter MM 5.0 cm 4.2 - 5.9 / 3.9 - 5.3 cm LV Systolic Diameter MM 2.2 cm LV Ejection Fraction MM Teich 87.0 % IVS Diastolic Thickness MM 1.0 cm 0.6 - 1.0 / 0.6 - 0.9 cm IVS Systolic Thickness MM 1.8 cm LVPW Diastolic Thickness MM 1.1 cm 0.6 - 1.0 / 0.6 - 0.9 cm LVPW Systolic Thickness MM 2.0 cm RV Diastolic Diameter MM 1.1 cm Aortic Annulus Diameter 3.3 cm LA Ao Ratio MM 1.1 MV E Point Septal Separation 0.7 cm DOPPLER AV Peak Velocity 167.0 cm/s LVOT Peak Velocity 106.0 cm/s AV Area Cont Eq vti 2.6 cm squared AV Area Cont Eq pk 2.2 cm squared MV Area PHT 5.0 cm squared Mitral E to A Ratio 1.3 MV E' Velocity 78.5 cm/s Mitral E to MV E' Ratio 14.0 Mitral E to LV E' Lateral Ratio 11.2 Mitral E to LV E' Septal Ratio 18.7 TR Peak Velocity 370.3 cm/s TR Peak Gradient 54.9 mmHg TV Peak E Velocity 102.0 cm/s Right Atrial Pressure 3.0 mmHg Pulmonary Artery Systolic Pressu 57.9 mmHg FINDINGS Left Ventricle Normal left ventricular size. LV systolic function with no regional wall motion abnormalities. LVEF is 55-60%. There is moderate left ventricular hypertrophy. Diastolic function is abnormal. Right Ventricle The right ventricle is normal in size and function. Right Atrium The right atrium is normal in size. Left Atrium The left atrium is enlarged. Mitral Valve Structurally normal mitral valve without significant stenosis or prolapse. There is mild mitral regurgitation. Aortic Valve Structurally normal aortic valve without significant sclerosis or stenosis. There is no aortic regurgitation. Tricuspid Valve Structurally normal tricuspid valve without significant stenosis or regurgitation. Insufficient TR jet to calculate RVSP. Pulmonic Valve Not well-visualized. Pericardium There is moderate sized pericardial effusion seen. Aorta Normal ascending aorta dimension. CONCLUSIONS LV systolic function is normal with EF 55 to 60%. There is moderate left ventricular hypertrophy. There is moderate sized pericardial effusion present. Diastolic function is abnormal. Left atrium is enlarged. Mild mitral regurgitation is seen. No comparison studies are available. Gil Gardner MD (Electronically Signed) Final Date: 31 August 2020 18:27 S
--- NOTE | 2020-08-31 08:01 | CT_ITS ---
WS: [id number] CT CHEST WITHOUT INTRAVENOUS CONTRAST HISTORY: Dyspnea, pleural effusion, concern for infection TECHNIQUE: Contiguous 5 mm axial imaging performed on the thorax. Coronal and sagittal reformats are submitted. All CT scans at [facility] use at least one of these dose optimization techniq ues: automated exposure control; mA and/or kV adjustment per patient size (includes targeted exams wh ere dose is matched to clinical indication); or iterative reconstruction. CONTRAST: None DLP: 595.08 mGy.cm COMPARISON: None available. Lungs and central airway: Moderate pulmonary vascular congestion and fluid overload. Compressive atel ectasis at the lung bases. No dense consolidation or pneumonia. Pleura: Bilateral pleural effusions are moderate. Heart and pericardium: Enlarged heart with a moderate-sized pericardial effusion. Mediastinum and gerardo: Edema within the mediastinum. Cannot exclude adenopathy on this study as there is significant fluid overload. Vessels: Severe atherosclerosis aorta. Calcifications extend into the carotid arteries and marked tavon cification in the coronary arteries and upper mesenteric vessels. Chest wall and lower neck: Diffuse soft tissue anasarca. Upper abdomen: There is air in the upper abdomen which I cannot definitely placed within the GI tract . Continued heavy calcification within the abdominal aorta and mesenteric arteries. Prior cholecystec alejandro. Osseous structures: Osteopenia and severe degenerative disc disease. CT/CT chest wo con [id number] IMPRESSION: 1. Severe diffuse anasarca. 2. Marked pulmonary edema. 3. Moderate size bilateral pleural effusions. 4. Cardiomegaly and pericardial effusion. 5. Air in the upper abdomen cannot be definitely placed within the GI tract. R ecommend follow-up noncontrast CT abdomen and pelvis to exclude free air. 6. Severe atherosclerosis. Notified Tyrell Cm MD at 08/31/2020 12:54 PM.
--- NOTE | 2020-08-31 08:11 | US_ITS ---
WS: [id number] RENAL ULTRASOUND HISTORY: Kidney disease COMPARISON: None available. TECHNIQUE: 2-D and color Doppler imaging of the kidney submitted. Right kidney: 8.5 cm x 3.0 cm x 4.8 cm. Atrophied kidney with marked increased echogenicity and poor corticomedullary differentiation. No mas s or obstruction. Left kidney: 11.8 cm x 6.8 cm x 5.4 cm. LEFT kidney is difficult to visualize. Grossly no mass or hydronephrosis. Aorta: Not visualized. Urinary Bladder: Mildly distended bladder. No intraluminal filling defect. US/US renal BI* [id number] IMPRESSION: 1. Moderate RIGHT medical renal disease. 2. LEFT kidney is difficult to visualize. No hydronephrosis. 3. Negative bladder.
[2020-08-31] MEDS: ipratropium-albuterol 3 mL Neb INHALATION ×4 (08:13→20:02)
[2020-08-31] MEDS: budesonide 0.5 mg/2 mL Neb INHALATION ×2 (08:13→20:02)
[2020-08-31] MEDS: FUROsemide 20 mg Tablet 40 MG PO (08:44)
[2020-08-31] MEDS: sodium chloride 0.9% (100 ml) 100 ML (10:49)
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
[2020-08-31 11:54] LABS: Hemoglobin 9.9 g/dL (11.5-15.3)
[2020-08-31 13:34] LABS: Glucose Point of Care 172 mg/dL (70-110)
--- NOTE | 2020-08-31 16:18 | PM.CONSULT ---
Providers/Reason For Consult Consulting Physican/Specialty*: Tyrell Cm MD Reason for Consult*: Anemia Attending Physician: Tyrell Cm MD Primary Care Provider: Irasema Charles MD History of Present Illness History of Present Illness Tania Kiser is a 75 year old female who recently moved here from [place]. Patient has history of dementia and today she appears to be mildly confused. Patient denies any abdominal pain, nausea, vomiting, hematemesis, melena. She apparently had an EGD for management of AVMs recently. Patient initially presented with a hemoglobin of 6 but posttransfusion her hemoglobin is up to 9. During work-up she was noted to have multiple other findings including large effusion possible empyema etc. Review of Systems General: Reports: ROS unobtainable due to mental status Meds/Allergies Home Medications and Allergies Home Medications Medication Instructions Recorded Confirmed Last Taken Type albuterol sulfate 2 puff INHALATION 6XD PRN 08/26/20 08/29/20 08/26/20 History alprazolam [Xanax] 0.25 - 0.5 mg PO DAILY PRN 08/26/20 08/29/20 08/26/20 History amlodipine 5 mg PO BID@0700,1900 08/26/20 08/29/20 08/26/20 History ascorbic acid (vitamin C) [Vitamin 500 mg PO DAILY@189908/26/20 08/29/20 08/25/20 History C] atorvastatin 40 mg PO BEDTIME@19008/26/20 08/29/20 08/25/20 History cholecalciferol (vitamin D3) 50 mcg PO DAILY@189908/26/20 08/29/20 08/25/20 History [Vitamin D3] clonidine HCl 0.2 mg PO BID@0700,1900 08/26/20 08/29/20 08/26/20 History duloxetine 20 mg PO DAILY@07 08/26/20 08/29/20 08/26/20 History ferrous sulfate 325 mg PO DAILY@1900 08/26/20 08/29/20 08/25/20 History furosemide [Lasix] See Rx Instructions .ROUTE .COMPLEX 08/26/20 08/29/20 08/25/20 History hydralazine 100 mg PO TID@07,12,19 01/08/29/20 08/26/20 History ibuprofen 400 mg PO ONCE PRN 08/26/20 08/29/20 08/26/20 History 400 mg isosorbide mononitrate 60 mg PO BID@07,19 08/26/20 08/29/20 08/26/20 History pantoprazole 40 mg PO DAILY@0700 08/26/20 08/29/20 08/26/20 History potassium chloride See Rx Instructions .ROUTE .COMPLEX 08/26/20 08/29/20 08/26/20 History budesonide 0.5 mg/2 mL suspension 0.5 mg INHALATION BID 30 Days #120 08/29/20 08/29/20 Unknown Rx for nebulization ml furosemide 20 mg tablet 40 mg PO DAILY 30 Days #60 tab 08/29/20 08/29/20 Unknown Rx ipratropium 0.5 mg-albuterol 3 mg 3 ml INHALATION QID 30 Days #320 ml 08/29/20 08/29/20 Unknown Rx (2.5 mg base)/3 mL nebulization soln Allergies Allergy/AdvReac Type Severity Reaction Status Date / Time No Known Allergies Allergy Verified 08/30/20 21:10 Current Medications Current Medications Generic Name Dose Route Start Last Admin Trade Name Freq PRN Reason Stop Dose Admin Acetaminophen 650 mg 08/31/20 01:56 08/31/20 02:28 Acetaminophen 325 Mg Tablet PO 650 mg Q6H PRN Administration MILD PAIN Albuterol/Ipratropium 3 ml 08/31/20 09:00 08/31/20 16:10 Ipratropium-Albuterol 3 Ml Neb INHALATION 3 ml QID ELINA Administration Amlodipine Besylate 5 mg 08/31/20 07:00 08/31/20 06:28 Amlodipine 5 Mg Tablet PO 5 mg BID@0700,1900 ELINA Administration Budesonide 0.5 mg 08/31/20 09:00 08/31/20 08:13 Budesonide 0.5 Mg/2 Ml Neb INHALATION 0.5 mg BID ELINA Administration Clonidine HCl 0.2 mg 08/31/20 07:00 08/31/20 06:46 Clonidine 0.1 Mg Tablet PO 0.2 mg BID@0700,1900 ELINA Administration Duloxetine HCl 20 mg 08/31/20 07:00 08/31/20 06:27 Duloxetine 20 Mg Capsule PO 20 mg DAILY@07 ELINA Administration Furosemide 40 mg 08/31/20 09:00 08/31/20 08:44 Furosemide 20 Mg Tablet PO 40 mg DAILY ELINA Administration Hydralazine HCl 100 mg 08/31/20 07:00 08/31/20 06:27 Hydralazine 50 Mg Tablet PO 100 mg TID@07, ELINA Administration Insulin Aspart 0 unit 08/31/20 12:00 08/31/20 13:42 Insulin Aspart 100 Unit/1 Ml SUBCUT 2 unit TIDWM ELINA Administration Protocol Isosorbide Mononitrate 60 mg 08/31/20 07:00 08/31/20 06:46 Isosorbide Mononitrate Er 60 Mg Tablet PO 60 mg BID@ ELINA Administration Pantoprazole Sodium 40 mg 08/31/20 00:30 08/31/20 13:43 Pantoprazole 40 Mg Sdv IV 40 mg Q12H ELINA Administration PFSH Acute PFSH: Medical History Anemia Barretts esophagus Dementia Renal failure Stenosis of peripheral vascular stent Type 2 diabetes mellitus Surgical History History of renal stent History of thoracentesis Stented coronary artery Family History Son Diabetes Brother Cancer Sister Lung disease Father Cirrhosis Mother CAD (coronary artery disease) Social History Smoking and tobacco status: former smoker Quit status (tobacco): has quit using tobacco Year quit tobacco: 2020-Hx of 1PPD x 60 Year Second hand smoke exposure: Yes Smoking risk assessment/counseling performed?: No Alcohol intake: current Alcohol intake frequency: holidays/special occasions only Alcohol type: wine Counseling given: No Counseling given: No Caregiver/support person: Yes Lives independently: Yes Household members: family Marital status: / Current occupational status: retired History of recent travel: No Current gender identity: Female Vitals/I&O/Wt Last Vital Signs Temp 97.9 F 08/31/20 15:43 Pulse 98 08/31/20 16:11 Resp 18 08/31/20 16:11 BP 181/56 08/31/20 15:43 Pulse Ox 94 08/31/20 16:11 08/31/20 08/31/20 08/31/20 06:59 14:59 22:59 Intake Total 100 / 100 350 / 350 Balance 100 / 100 350 / 350 Weight last 48 hrs Weight 131 lb Weight 131 lb Physical Exam Narrative: EXAM NARRATIVE: HEENT: Normocephalic Eye: Sclera /conjunctiva normal Abdomen: Soft to palpation, nontender, no guarding or rigidity Neurological: Oriented to place person and time Skin: Intact, no lesions appreciated on gross exam A&P Assessment and plan (1) Acute blood loss anemia: 70-year-old female with history of dementia with multiple other comorbidities originally presented with anemia. She responded well to blood transfusion and her hemoglobin is stable at 9.Initial CT chest had shown possible intraperitoneal free air but on CT abdomen pelvis there was no evidence of free air. 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
[2020-08-31 16:46] LABS: Glucose Point of Care 142 mg/dL (70-110)
[2020-08-31] MEDS: atorvastatin 40 mg Tablet PO (18:28)
[2020-08-31 18:49] LABS: Hematocrit 27.7 % (37.0-47.0); Hemoglobin 9.3 g/dL (11.5-15.3)
[2020-08-31 20:46] LABS: Glucose Point of Care 121 mg/dL (70-110)
[2020-09-01] VITALS (18 sets, daily range): BP systolic 155–182; BP diastolic 48–64; PULSE 75–94; RESP 14–23; TEMP 36.5–36.8; O2SAT 91–97
[2020-09-01] MEDS: pantoprazole 40 mg SDV IV ×2 (00:52→11:42)
--- NOTE | 2020-09-01 06:00 | US_ITS ---
WS: [id number] ULTRASOUND-GUIDED THORACENTESIS, RIGHT HISTORY: RT PLEURAL FLUID Procedure, risks, and complications were explained to the patient. With the patient in an upright pos ition, the skin over the RIGHT posterior thorax was cleansed with ChloraPrep and anesthetized with 1% buffered lidocaine. A 5 [place] Yueh needle is inserted into the pleural fluid without complication. Approximately 800 cc of clear pleural fluid is removed without difficulty. Specimen collected for analysis as requested. / thoracentesis 16411 IMPRESSION: 1. RIGHT thoracentesis yielding 800 cc of fluid. 2. Chest radiograph to follow to evaluate for pneumothorax. 3. Pleural fluid specimen collected for analysis as requested.
[2020-09-01] MEDS: cloNIDine 0.1 mg Tablet 0.2 MG PO ×2 (06:10→17:45)
[2020-09-01] MEDS: duloxetine 20 mg Capsule PO (06:11)
[2020-09-01 06:18] LABS: Basophils % 0.1 %; Hematocrit 26.7 % (37.0-47.0); Hemoglobin 8.8 g/dL (11.5-15.3); Lymphocytes # 0.6 10^3/uL (0.8-4.8); Lymphocytes % 3.6 %; Mean Corpuscular Hemoglobin 29.7 pg (28.0-34.0); Mean Corpuscular Volume 90.2 fL (81-99); Mean Platelet Volume 10.5 fL (7.4-10.4); Monocytes # 0.9 10^3/uL (0.2-0.9); Monocytes % 5.8 %; Neutrophils # 14.18 10^3/uL (1.8-7.7); Neutrophils % 90.1 %; Nucleated Red Blood Cells % 0 %; Platelet Count 199 10^3/cmm (130-400); Red Blood Count 2.96 10^6/uL (4.1-5.3); Red Cell Distribution Width 17.5 % (12.1-15.1); White Blood Count 15.7 10^3/uL (4.0-10.0)
[2020-09-01 06:48] LABS: Anion Gap 19.9 (5-19); Calcium 9.2 mg/dL (8.5-10.5); Carbon Dioxide 14 mmol/L (22-29); Chloride 107 mmol/L (98-107); Glucose 118 mg/dL (65-115); Osmolality Calculated 317 mOsm/kg (285-295); Potassium 3.9 mmol/L (3.5-5.1); Sodium 137 mmol/L (136-145)
[2020-09-01 06:50] LABS: Glucose Point of Care 130 mg/dL (70-110)
[2020-09-01 06:56] LABS: Blood Urea Nitrogen 101 mg/dL (8-23)
[2020-09-01 07:10] LABS: Estmated Average Glucose 97
[2020-09-01] MEDS: budesonide 0.5 mg/2 mL Neb INHALATION ×2 (08:30→20:17)
[2020-09-01] MEDS: ipratropium-albuterol 3 mL Neb INHALATION ×4 (08:30→20:17)
--- NOTE | 2020-09-01 09:35 | PM.PN ---
Subjective Subjective: Interval history: Patient denies any new complaints. She continues to have right-sided chest pain. Reports that last time she was unable to sleep and wants to try something to help her fall asleep. She is scheduled for thoracentesis today. I have discussed with Dr. Hines yesterday and given her significant comorbidities it was decided to postpone further evaluation with upper endoscopy/colonoscopy unless hemoglobin continues to decline. At this point we will just closely monitor. Patient's BUN significantly increased this morning secondary to upper GI bleed. Her blood pressure is stable. WBC increased to 15.7 and this appears to be related to infection/stress. Vitals/I&O/Wt Last Vital Signs Temp 98.2 F 09/01/20 06:55 Pulse 85 09/01/20 08:40 Resp 17 09/01/20 08:30 BP 155/57 09/01/20 06:55 Pulse Ox 93 09/01/20 08:30 08/31/20 09/01/20 09/01/20 22:59 06:59 14:59 Intake Total 60 / 410 300 / 710 Output Total 400 / 400 Balance 60 / 410 -100 / 310 Weight last 48 hrs Weight 61.825 kg Weight 59.421 kg Weight 59.421 kg Physical Exam Const: GENERAL APPEARANCE: cooperative and well kempt ORIENTATION/CONSCIOUSNESS: Yes oriented to person and Yes oriented to place OTHER: Appears in mild distress. Resp: COMMON NORMALS: normal respiratory effort OTHER: Decreased right base air movement. Cardio: COMMON NORMALS: regular rate, regular rhythm and S2 normal heart sound present RATE: regular rate RHYTHM: regular rhythm HEART SOUNDS: S2 normal heart sound present OTHER: No lower extremity edema GI: COMMON NORMALS: Normal to inspection, nondistended, normoactive bowel sounds present, Soft to palpation and non-tender PALPATION: Yes Soft to palpation Neuro: COMMON NORMALS: no focal motor deficits SENSORIUM/ORIENTATION: Yes oriented to person and Yes oriented to place Psych: APPEARANCE: Yes well kempt Data : 09/01/20 05:50 09/01/20 05:50 A&P Assessment and plan (1) GI bleed: This appears to be secondary to NSAID induced gastritis and possibly peptic ulcer disease. Status: Acute (2) Acute blood loss anemia: Secondary to what appears to be upper GI bleed. Status: Acute (3) Pleural effusion: Which appears to be the cause of patient's right-sided chest pain. Empyema cannot be ruled out Status: Acute (4) COPD (chronic obstructive pulmonary disease): Currently not in exacerbation Status: Acute Qualifiers: COPD type: unspecified COPD Qualified Code(s): J44.9 - Chronic obstructive pulmonary disease, unspecified (5) Chronic diastolic heart failure: Status: Acute (6) Type 2 diabetes mellitus: Check hemoglobin A1c Status: Inactive Additional A&P Information PLAN: Awaiting thoracentesis after which decision will be made regarding antibiotics. Continue high-dose PPI and avoid any anticoagulation or NSAIDs/steroids. Will initiate trazodone at bedtime to help patient with sleep. Continue holding antihypertensive medications at this point except clonidine to avoid rebound hypertension. Continue Lasix with monitoring. Attestations Medical Necessity Statement*: Patient with multiorgan problems requires close inpatient monitoring and treatment as well as evaluation. Time Spent in Patient Care: 16 - 35 minutes Coding Level of Care Code Acute Cryogenics Engineer for [facility] Fwd Diagnoses GI bleed K92.2 Acute blood loss anemia D62 Pleural effusion J90 COPD (chronic obstructive pulmonary disease) J44.9 COPD type: unspecified COPD Chronic diastolic heart failure I50.32 Type 2 diabetes mellitus E11.9
[2020-09-01] MEDS: FUROsemide 20 mg Tablet 40 MG PO (10:34)
--- NOTE | 2020-09-01 11:10 | XR_ITS ---
WS: [id number] PORTABLE CHEST HISTORY: s/p thoracentesis, RIGHT COMPARISON: 08/30/2020 No pneumothorax on the RIGHT. Status post RIGHT thoracentesis. Tiny amount of pleural thickening or fluid at the RIGHT costophrenic angle. No pneumothorax. Very small LEFT pleural effusion has improved since 08/30/2020. Pulmonary veno us congestion also improving. Cardiac size: Mildly enlarged cardiac silhouette. Mediastinum/Aorta: Mild atherosclerosis aorta. No osseous abnormality seen. XR/XR chest 1V portable [id number] IMPRESSION: 1. No pneumothorax status post RIGHT thoracentesis. 2. No significant residual RIGHT pleural effusion. 3. Small but improving LEFT pleural effusion.
--- NOTE | 2020-09-01 11:12 | PC.NURSE ---
bedside procedure completed, this nurse present, vitals stable as documented patient denies shortness of breath or pain, dressing to right back clean dry and intact.
[2020-09-01 11:38] LABS: Mononuclear %, Pleural Fluid 79 %; Mononuclear, Pleural Fluid # 0.128 10^3/uL; Polynuclear Cells, Pleural # 0.035 10^3/uL; Polynuclear Cells, Pleural % 22 %
[2020-09-01 12:03] LABS: Glucose Point of Care 124 mg/dL (70-110)
[2020-09-01 12:08] LABS: Appearance, Pleural Fluid CLEAR (CLEAR); Color, Pleural Fluid Pale Yellow (Pale Yellow); LDH Pleural Fluid 77 U/L; Right Pleural Fluid Right Lung; Total Protein Pleural Fluid 1.2 g/dL
[2020-09-01 12:25] LABS: PATH Referal YES
[2020-09-01] MEDS: acetaminophen 325 mg Tablet 650 MG PO (14:45)
[2020-09-01 15:34] LABS: Add Urine Microscopic? YES; Bilirubin Urine Neg (Negative); Blood Urine Neg (Negative); Glucose Urine UA Norm (Normal); Ketones Urine Negative (Negative); Leukocyte Esterase Urine Negative (Negative); Nitrate Urine Negative (Negative); Protein Urine 3+ (Negative); Specific Gravity, Urine 1.015 (1.005-1.030); Urine Appearance Clear (CLEAR); Urine Color Yellow (Yellow); Urobilinogen Urine Norm (Negative); pH Urine 5 (5-7)
[2020-09-01 15:35] LABS: Hyaline Casts Urine 0-4 /lpf
[2020-09-01 15:37] LABS: Add Urine Culture? No; Bacteria Urine 1+ /hpf
[2020-09-01 16:47] LABS: Creatinine Body Fluid 4.68 (0.5-0.9)
[2020-09-01 17:39] LABS: Glucose Point of Care 155 mg/dL (70-110)
[2020-09-01] MEDS: atorvastatin 40 mg Tablet PO (17:45)
[2020-09-01] MEDS: trazodone 50 mg Tablet PO (19:58)
[2020-09-01 21:38] LABS: Glucose Point of Care 148 mg/dL (70-110)
[2020-09-02] VITALS (11 sets, daily range): BP systolic 140–190; BP diastolic 55–70; PULSE 71–84; RESP 16–21; TEMP 36.5–37.2; O2SAT 90–94
[2020-09-02] MEDS: pantoprazole 40 mg SDV IV ×2 (00:16→12:35)
[2020-09-02 04:53] LABS: Basophils % 0.1 %; Hematocrit 24.2 % (37.0-47.0); Lymphocytes # 0.9 10^3/uL (0.8-4.8); Lymphocytes % 6.6 %; Mean Corpuscular HGB Conc 33.1 g/dL (30.0-36.0); Mean Corpuscular Hemoglobin 30.4 pg (28.0-34.0); Mean Platelet Volume 11.3 fL (7.4-10.4); Monocytes # 0.8 10^3/uL (0.2-0.9); Monocytes % 6.3 %; Neutrophils # 11.46 10^3/uL (1.8-7.7); Neutrophils % 86.5 %; Nucleated Red Blood Cells % 0 %; Platelet Count 163 10^3/cmm (130-400); Red Blood Count 2.63 10^6/uL (4.1-5.3); Red Cell Distribution Width 17.4 % (12.1-15.1); White Blood Count 13.3 10^3/uL (4.0-10.0)
[2020-09-02 05:17] LABS: Alanine Aminotransferase 8 U/L (0-33); Albumin Level 3.3 g/dL (3.5-5.2); Alkaline Phosphatase 59 IU/L (35-105); Anion Gap 21.6 (5-19); Aspartate Amino Transferase 18 U/L (0-32); Calcium 8.8 mg/dL (8.5-10.5); Carbon Dioxide 14 mmol/L (22-29); Chloride 110 mmol/L (98-107); Globulin 2.5 g/dL (1.3-4.6); Glucose 102 mg/dL (65-115); Magnesium 2.1 mg/dL (1.7-2.3); Osmolality Calculated 327 mOsm/kg (285-295); Potassium 3.6 mmol/L (3.5-5.1); Sodium 142 mmol/L (136-145); Total Bilirubin 0.6 mg/dL (0.15-1.2); Total Protein 5.8 g/dL (6.6-8.7)
[2020-09-02 05:19] LABS: Blood Urea Nitrogen 104 mg/dL (8-23)
[2020-09-02] MEDS: cloNIDine 0.1 mg Tablet 0.2 MG PO ×2 (06:36→17:10)
[2020-09-02] MEDS: duloxetine 20 mg Capsule PO (06:36)
[2020-09-02 07:09] LABS: Glucose Point of Care 116 mg/dL (70-110)
[2020-09-02 08:10] LABS: Glucose Point of Care 133 mg/dL (70-110)
[2020-09-02 08:10] LABS: Lactate Dehydrogenase 362 U/L (135-214)
[2020-09-02] MEDS: FUROsemide 20 mg Tablet 40 MG PO (09:30)
--- NOTE | 2020-09-02 11:11 | PC.SOCIAL ---
Pg 2 IMM Explained to pt Pg 2 IMM. No questions voiced. Provided pt a copy. Signed, dated, & timed a copy & placed in chart.
[2020-09-02 11:25] LABS: Glucose Point of Care 120 mg/dL (70-110)
[2020-09-02] MEDS: ondansetron 2 mg/ML SDV 2 mL 4 MG IVP ×2 (13:10→20:20)
--- NOTE | 2020-09-02 14:29 | PM.PN ---
Subjective Subjective: Interval history: Patient denies any new complaints this morning. Reports that her breathing much improved. Pleural creatinine elevated but not diagnostic. Urinothorax felt unlikely. Had extensive discussion with patient's daughter at bedside and daughter Kaci (DPOA) over the phone. Patient just recently had small bowel AVM cauterization performed endoscopically. She does have chronic kidney disease but Kaci did not know her baseline creatinine. We have discussed regarding CODE STATUS and Kaci wants patient to be comfortable and to allow nature take its course in case if she codes. Patient was seen vascular surgeon right before she was transferred and I think she will benefit from further outpatient follow-up with Dr. Bender and cardiology in addition to nephrology. Vitals/I&O/Wt Last Vital Signs Temp 98.9 F 09/02/20 11:37 Pulse 80 09/02/20 11:37 Resp 18 09/02/20 11:37 BP 164/66 09/02/20 11:37 Pulse Ox 90 09/02/20 11:37 09/01/20 09/02/20 09/02/20 22:59 06:59 14:59 Intake Total 240 / 860 60 / 60 Output Total 200 / 460 120 / 580 Balance 40 / 400 -120 / 280 60 / 60 Weight last 48 hrs Weight 62.596 kg Weight 61.825 kg Physical Exam Narrative: EXAM NARRATIVE: Lung exam improved. Patient has minimal bibasilar rales. No lower extremities. Data : 09/02/20 04:18 09/02/20 04:18 A&P Assessment and plan (1) GI bleed: This appears to be secondary to recurrent AVM bleeds Status: Acute (2) Acute blood loss anemia: Secondary to what appears to be upper GI bleed. Status: Acute (3) Pleural effusion: Which appears to be the cause of patient's right-sided chest pain. Infection ruled out. Status: Acute (4) COPD (chronic obstructive pulmonary disease): Currently not in exacerbation Status: Acute Qualifiers: COPD type: unspecified COPD Qualified Code(s): J44.9 - Chronic obstructive pulmonary disease, unspecified (5) Chronic diastolic heart failure: With associated pericardial effusion. Kidney disease appears to be the major cause of patient's fluid overload Status: Acute (6) Type 2 diabetes mellitus: Check hemoglobin A1c Status: Inactive (7) Chronic kidney disease, stage IV (severe): Atrophied right kidney. Chronic. Likely related to diabetes and peripheral vascular disease. Status: Acute Additional A&P Information PLAN: Continue monitoring and if hemoglobin further declines we may need to proceed with endoscopy. Continue PPI. Continue daily Lasix. Kaci is aware that patient will likely progress to hemodialysis. Continue holding blood pressure medications for now Attestations Medical Necessity Statement*: Patient with chronic kidney disease as well as GI bleed and fluid overload requires close inpatient monitoring and treatment until deemed safe for discharge. Time Spent in Patient Care: Greater than 35 minutes (>than 50% of time spent in counselling and/or direct pt care on unit). Coding Level of Care Code Acute Property Controller for [facility] Diagnoses GI bleed K92.2 Acute blood loss anemia D62 Pleural effusion J90 COPD (chronic obstructive pulmonary disease) J44.9 COPD type: unspecified COPD Chronic diastolic heart failure I50.32 Type 2 diabetes mellitus E11.9 Chronic kidney disease, stage IV (severe) N18.4
[2020-09-02 17:10] LABS: Glucose Point of Care 369 mg/dL (70-110)
[2020-09-02] MEDS: atorvastatin 40 mg Tablet PO (17:10)
[2020-09-02] MEDS: trazodone 50 mg Tablet PO (20:16)
[2020-09-02 20:57] LABS: Glucose Point of Care 31 mg/dL (70-110)
[2020-09-02 20:57] LABS: Glucose Point of Care 31 mg/dL (70-110)
--- NOTE | 2020-09-02 21:00 | PC.NURSE ---
BS Nurses aide reported accucheck reading of 31. Pt sleepy but easily aroused. Drank 8 oz of orange juice and dish of applesauce. Will recheck
[2020-09-02] MEDS: ipratropium-albuterol 3 mL Neb INHALATION (21:12)
--- NOTE | 2020-09-02 21:24 | PC.NURSE ---
bs accucheck remains 41. RN giving amp of D50IV and starting IV fluids per protocol of D5W at 100/hr
[2020-09-02] MEDS: dextrose 50% syringe 50 mL IVP (21:27)
[2020-09-02 21:36] LABS: Glucose Point of Care 41 mg/dL (70-110)
[2020-09-02] MEDS: dextrose 5 % 500 ML 100 ML IV (22:00)
--- NOTE | 2020-09-02 22:04 | PC.NURSE ---
BS Accucheck is now 104. Will continue to monitor
[2020-09-02 22:10] LABS: Glucose Point of Care 104 mg/dL (70-110)
[2020-09-03] VITALS (21 sets, daily range): BP systolic 158–172; BP diastolic 50–68; PULSE 66–86; RESP 16–20; TEMP 36.6–36.9; O2SAT 89–95
[2020-09-03 00:05] LABS: Glucose Point of Care 102 mg/dL (70-110)
[2020-09-03] MEDS: pantoprazole 40 mg SDV IV ×2 (00:47→12:03)
[2020-09-03 02:44] LABS: Glucose Point of Care 104 mg/dL (70-110)
[2020-09-03 05:03] LABS: Basophils % 0.1 %; Eosinophils % 0.1 %; Hematocrit 22.2 % (37.0-47.0); Lymphocytes # 0.8 10^3/uL (0.8-4.8); Lymphocytes % 8.2 %; Mean Corpuscular HGB Conc 31.5 g/dL (30.0-36.0); Mean Corpuscular Hemoglobin 29.9 pg (28.0-34.0); Mean Corpuscular Volume 94.9 fL (81-99); Mean Platelet Volume 11.1 fL (7.4-10.4); Monocytes # 0.9 10^3/uL (0.2-0.9); Monocytes % 8.8 %; Neutrophils # 8.38 10^3/uL (1.8-7.7); Nucleated Red Blood Cells % 0 %; Platelet Count 129 10^3/cmm (130-400); Red Blood Count 2.34 10^6/uL (4.1-5.3); Red Cell Distribution Width 17.3 % (12.1-15.1); White Blood Count 10.2 10^3/uL (4.0-10.0)
[2020-09-03 05:24] LABS: Alanine Aminotransferase 7 U/L (0-33); Alkaline Phosphatase 51 IU/L (35-105); Anion Gap 16.7 (5-19); Aspartate Amino Transferase 16 U/L (0-32); Calcium 8.2 mg/dL (8.5-10.5); Carbon Dioxide 16 mmol/L (22-29); Chloride 109 mmol/L (98-107); Globulin 2.1 g/dL (1.3-4.6); Glucose 92 mg/dL (65-115); Osmolality Calculated 317 mOsm/kg (285-295); Potassium 3.7 mmol/L (3.5-5.1); Sodium 138 mmol/L (136-145); Total Bilirubin 0.5 mg/dL (0.15-1.2); Total Protein 5.1 g/dL (6.6-8.7)
[2020-09-03 05:26] LABS: Blood Urea Nitrogen 100 mg/dL (8-23)
--- NOTE | 2020-09-03 05:47 | PC.NURSE ---
SHIFT SUMMARY Has rested well tonight. Have done monitoring of BS through night and has done fine after got it up with juice, applesauce, D50 and D5W IV infusion. Is confused but pleasant and cooperative. O2 at 5l this am due to low sat. Up to 90% with the 5l NC. Pt was asymptomatic and denied any SOB. RT came to assess pt. BUN still critical at 100 but remains about same as last few days
[2020-09-03] MEDS: cloNIDine 0.1 mg Tablet 0.2 MG PO ×2 (06:18→18:15)
[2020-09-03] MEDS: duloxetine 20 mg Capsule PO (06:18)
[2020-09-03 07:00] LABS: Glucose Point of Care 108 mg/dL (70-110)
[2020-09-03] MEDS: budesonide 0.5 mg/2 mL Neb INHALATION ×2 (07:58→20:15)
[2020-09-03] MEDS: ipratropium-albuterol 3 mL Neb INHALATION ×4 (07:58→20:15)
[2020-09-03] MEDS: FUROsemide 20 mg Tablet 40 MG PO (09:04)
--- NOTE | 2020-09-03 10:34 | P.PN_ITS ---
Subjective Subjective: Interval history: Patient reports feeling much better this morning. She denies shortness of breath or chest pain. Her hemoglobin continues to drop and is down to 7.0 this morning. I have discussed with patient regarding further plan of care including upper endoscopy to see if we can find bleeding source to address. Patient agreed. Discussed with Dr. Linares of and plan to proceed with EGD tomorrow morning. Platelets dropped and this appears to be consumptive in origin Vitals/I&O/Wt Last Vital Signs Temp 98.0 F 09/03/20 07:25 Pulse 74 09/03/20 08:09 Resp 18 09/03/20 08:09 BP 167/55 09/03/20 07:25 Pulse Ox 95 09/03/20 08:09 09/02/20 09/03/20 09/03/20 22:59 06:59 14:59 Intake Total 240 / 300 575 / 875 120 / 120 Output Total 150 / 150 430 / 580 Balance 90 / 150 145 / 295 120 / 120 Weight last 48 hrs Weight 63.866 kg Weight 62.596 kg Physical Exam Narrative: EXAM NARRATIVE: Lungs clear. Heart is regular. No lower extremities. Data : 09/03/20 04:10 09/03/20 04:10 Micro: Microbiology 09/01/20 Unknown Mycobacterial Smear - Preliminary Body Fluids - Pleura A&P Assessment and plan (1) GI bleed: This appears to be secondary to recurrent AVM bleeds Status: Acute (2) Acute blood loss anemia: Secondary to what appears to be upper GI bleed. Status: Acute (3) Pleural effusion: Which appears to be the cause of patient's right-sided chest pain. Inf ection ruled out. Status: Inactive (4) COPD (chronic obstructive pulmonary disease): Currently not in exacerbation Status: Acute Qualifiers: COPD type: unspecified COPD Qualified Code(s): J44.9 - Chronic obstructive pulmonary disease, unspecified (5) Chronic diastolic heart failure: With associated pericardial effusion. Kidney disease appears to be the major cause of patient's fluid overload Status: Acute (6) Type 2 diabetes mellitus: Check hemoglobin A1c Status: Inactive (7) Chronic kidney disease, stage IV (severe): Atrophied right kidney. Chronic. Likely related to diabetes and peripheral vascular disease. Status: Acute (8) Thrombocytopenia: Not present on admission. Consumptive in origin Status: Acute Additional A&P Information PLAN: Continue high-dose PPI. Will give patient 1 unit of PRBC and awaiting EGD tomorrow morning. We will continue Lasix once daily. Keep patient n.p.o. post midnight. Continue holding blood pressure medications except clonidine. Attestations Medical Necessity Statement*: Patient with upper GI bleed requires close inpatient monitoring and treatment. Time Spent in Patient Care: 16 - 35 minutes Coding Level of Care Code Acute Transactional Paralegal for [facility] Diagnoses GI bleed K92.2 Acute blood loss anemia D62 Pleural effusion J90 COPD (chronic obstructive pulmonary disease) J44.9 COPD type: unspecified COPD Chronic diastolic heart failure I50.32 Type 2 diabetes mellitus E11.9 Chronic kidney disease, stage IV (severe) N18.4 Thrombocytopenia D69.6
[2020-09-03 11:17] LABS: Glucose Point of Care 136 mg/dL (70-110)
--- NOTE | 2020-09-03 12:17 | PC.NURSE ---
Notified Care Nurse FAHAD Breen that blood is ready.
[2020-09-03] MEDS: sodium chloride 0.9% (100 ml) 100 ML 150 ML (16:13)
[2020-09-03] MEDS: sodium chloride 0.9% 1,000 ML 30 ML IV (16:13)
[2020-09-03 16:47] LABS: Glucose Point of Care 141 mg/dL (70-110)
[2020-09-03] MEDS: atorvastatin 40 mg Tablet PO (18:15)
[2020-09-03] MEDS: trazodone 50 mg Tablet PO (21:24)
[2020-09-03 21:36] LABS: Glucose Point of Care 127 mg/dL (70-110)
[2020-09-04] VITALS (14 sets, daily range): BP systolic 159–186; BP diastolic 53–85; PULSE 68–82; RESP 12–19; TEMP 36.4–36.9; O2SAT 90–96
[2020-09-04] MEDS: pantoprazole 40 mg SDV IV ×2 (00:28→23:59)
--- NOTE | 2020-09-04 04:54 | PC.NURSE ---
SHIFT SUMMARY Has done well tonight. Is confused but very pleasant. Forgets to call for assist to BSC and bed alarm sounds. Up with one assist. Is little unsteady. Did not go to sleep until late. Says sometimes she has nights like that. Has some SOB with exertion but denies any at rest. Loose sounding cough but is nonproductive. NPO after midnight for EGD this am. Has denied any pain or discomfort.
[2020-09-04 05:13] LABS: Basophils % 0.2 %; Eosinophils # 0.1 10^3/uL (0.0-0.8); Eosinophils % 0.4 %; Hematocrit 26.4 % (37.0-47.0); Hemoglobin 8.7 g/dL (11.5-15.3); Lymphocytes # 0.7 10^3/uL (0.8-4.8); Lymphocytes % 6.4 %; Mean Corpuscular Hemoglobin 30.2 pg (28.0-34.0); Mean Corpuscular Volume 91.7 fL (81-99); Monocytes # 0.8 10^3/uL (0.2-0.9); Monocytes % 6.9 %; Neutrophils # 9.47 10^3/uL (1.8-7.7); Neutrophils % 84.1 %; Nucleated Red Blood Cells % 0 %; Platelet Count 125 10^3/cmm (130-400); Red Blood Count 2.88 10^6/uL (4.1-5.3); Red Cell Distribution Width 16.4 % (12.1-15.1); White Blood Count 11.3 10^3/uL (4.0-10.0)
[2020-09-04 05:34] LABS: Alanine Aminotransferase 8 U/L (0-33); Albumin Level 2.9 g/dL (3.5-5.2); Alkaline Phosphatase 56 IU/L (35-105); Anion Gap 18.7 (5-19); Aspartate Amino Transferase 15 U/L (0-32); Calcium 8.1 mg/dL (8.5-10.5); Carbon Dioxide 16 mmol/L (22-29); Chloride 107 mmol/L (98-107); Globulin 2.2 g/dL (1.3-4.6); Glucose 100 mg/dL (65-115); Magnesium 1.9 mg/dL (1.7-2.3); Osmolality Calculated 320 mOsm/kg (285-295); Potassium 3.7 mmol/L (3.5-5.1); Sodium 138 mmol/L (136-145); Total Bilirubin 0.8 mg/dL (0.15-1.2); Total Protein 5.1 g/dL (6.6-8.7)
[2020-09-04 05:59] LABS: Blood Urea Nitrogen 107 mg/dL (8-23)
[2020-09-04] MEDS: cloNIDine 0.1 mg Tablet 0.2 MG PO ×2 (06:03→18:53)
[2020-09-04] MEDS: duloxetine 20 mg Capsule PO (06:03)
[2020-09-04 06:41] LABS: Glucose Point of Care 114 mg/dL (70-110)
--- NOTE | 2020-09-04 08:57 | P.PN_ITS ---
Subjective Subjective: Interval history: Patient denies any complaints this morning. Denies shortness of breath or chest pain. Denies abdominal pain. She is scheduled for upper endoscopy this afternoon. Her hemoglobin responded well to 1 unit of PRBC yesterday. Vitals/I&O/Wt Last Vital Signs Temp 98.0 F 09/04/20 07:07 Pulse 72 09/04/20 07:07 Resp 16 09/04/20 07:07 BP 169/66 09/04/20 07:07 Pulse Ox 92 09/04/20 07:07 09/03/20 09/04/20 09/04/20 22:59 06:59 14:59 Intake Total 350 / 470 120 / 590 Output Total 200 / 200 300 / 500 Balance 150 / 270 -180 / 90 Weight last 48 hrs Weight 63.219 kg Weight 63.866 kg Physical Exam Narrative: EXAM NARRATIVE: Lungs clear. Heart is regular. No lower extremities. Data : 09/04/20 04:52 09/04/20 04:52 A&P Assessment and plan (1) GI bleed: This appears to be secondary to recurrent AVM bleeds Status: Acute (2) Acute blood loss anemia: Secondary to what appears to be upper GI bleed. Status: Acute (3) Pleural effusion: Which appears to be the cause of patient's right-sided chest pain. Infection ruled out. Status: Inactive (4) COPD (chronic obstructive pulmonary disease): Currently not in exacerbation Status: Acute Qualifiers: COPD type: unspecified COPD Qualified Code(s): J44.9 - Chronic obstructive pulmonary disease, unspecified (5) Chronic diastolic heart failure: With associated pericardial effusion. Kidney disease appears to be the major cause of patient's fluid overload Status: Acute (6) Type 2 diabetes mellitus: Check hemoglobin A1c Status: Inactive (7) Chronic kidney disease, stage IV (severe): Atrophied right kidney. Chronic. Likely related to diabetes and peripheral vascular disease. Status: Acute (8) Thrombocytopenia: Not present on admission. Consumptive in origin Status: Acute Additional A&P Information PLAN: Continue current monitoring and treatment. Awaiting EGD. Attestations Medical Necessity Statement*: Patient with GI bleed requires close inpatient monitoring and treatment. Coding Level of Care Code Acute Regional Program Manager [facility] Diagnoses GI bleed K92.2 Acute blood loss anemia D62 Pleural effusion J90 COPD (chronic obstructive pulmonary disease) J44.9 COPD type: unspecified COPD Chronic diastolic heart failure I50.32 Type 2 diabetes mellitus E11.9 Chronic kidney disease, stage IV (severe) N18.4 Thrombocytopenia D69.6
[2020-09-04 10:48] LABS: Glucose Point of Care 109 mg/dL (70-110)
--- NOTE | 2020-09-04 11:16 | ANES.PREANE2 ---
Pre-Anesthetic Assessment Pre-Anesthetic Assessment: Height/Weight: Height 1.52 m Weight 63.219 kg Temp Pulse Resp BP Pulse Ox 98.2 F 74 16 174/83 91 09/04/20 11:14 09/04/20 11:14 09/04/20 11:14 09/04/20 11:14 09/04/20 11:14 Preop Diagnosis: gi bleed Proposed Procedure: Operation Date: 09/04/20 10:30 Proposed Procedures p EGD(Not Applicable) - Bautista Hines MD Familial anesthetic complications: none reported. Last intake: Intake Last Liquid Date 09/04/20 Last Liquid Time 00:00 Last Solid Date 09/03/20 Last Solid Time 17:00 Social: Social History: No alcohol and No tobacco Exam: Pre-Anes Outpt Exam: alert and oriented x 3 Airway: Submandibular: WNL Cervical ROM: WNL MP: 3 Dentition: Full History/ROS: No significant history except as noted Pulmonary: Pulmonary: COPD CV/HEM: CV/HEM: CAD, CHF, DVT (2017) and HTN Comments: previous heart stent patient is a very poor historian : : Chronic renal Insufficiency (stage 4) Hepatic: Hepatic: None reported GI: GI: GERD Metabolic: Metabolic: DM Neuropsych: Neuropsych: Dementia Anesthetic Plan: ASA status: 3 Anesthesia: Anesthesia Evaluation and MAC Risk of > 500 ml blood loss (7ml/kg in children): No Meds/Allergies Current Medications: Current Medications Generic Name Dose Route Start Last Admin Trade Name Freq PRN Reason Stop Dose Admin Acetaminophen 650 mg 08/31/20 01:56 09/01/20 14:45 Acetaminophen 32 5 Mg Tablet PO 650 mg Q6H PRN Administration MILD PAIN Albuterol Sulfate 2.5 mg 09/01/20 01:34 09/01/20 01:44 Albuterol 2.5 Mg /0.5 Ml Neb INHALATION 2.5 mg Q4H.RESPIRATORY P RN Administration SHORTNESS OF MEET TH Albuterol/Ipratrop ium 3 ml 09/03/20 08:00 09/03/20 20:15 Ipratropium-Albu terol 3 Ml Neb INHALATION 3 ml QID.RESPIRATORY S CH Administration Amlodipine Besylat e 5 mg 08/31/20 07:00 08/31/20 06:28 Amlodipine 5 Mg Tablet PO 5 mg BID@0700,1900 ELINA Administration Atorvastatin Calci um 40 mg 08/31/20 19:00 09/03/20 18:15 Atorvastatin 40 Mg Tablet PO 40 mg BEDTIME@1900 ELINA Administration Budesonide 0.5 mg 09/03/20 08:00 09/03/20 20:15 Budesonide 0.5 M g/2 Ml Neb INHALATION 0.5 mg BID.RESPIRATORY S CH Administration Clonidine HCl 0.2 mg 08/31/20 07:00 09/04/20 06:03 Clonidine 0.1 Mg Tablet PO 0.2 mg BID@0700,1900 ELINA Administration Dextrose 50 ml 08/31/20 08:18 09/02/20 21:27 Dextrose 50% Syr kelly 50 Ml IVP 50 ml PRN PRN Administration hypoglycemia prot ocol Protocol Duloxetine HCl 20 mg 08/31/20 07:00 09/04/20 06:03 Duloxetine 20 Mg Capsule PO 20 mg DAILY@07 ELINA Administration Furosemide 40 mg 08/31/20 09:00 09/03/20 09:04 Furosemide 20 Mg Tablet PO 40 mg DAILY ELINA Administration Hydralazine HCl 100 mg 08/31/20 07:00 08/31/20 06:27 Hydralazine 50 M g Tablet PO 100 mg TID@ ELINA Administration Dextrose 500 mls @ 100 mls /hr 08/31/20 08:18 09/03/20 06:23 D5w IV Infused ONCE PRN Infusion Adult Acute Hypog lycemia Prot Protocol Sodium Chloride 1,000 mls @ 30 ml s/hr 09/03/20 12:00 09/03/20 16:13 Sodium Chloride 0.9% IV 09/04/20 11:59 30 mls/hr .Q24H ONE Administration Insulin Aspart 0 unit 08/31/20 12:00 09/03/20 16:49 Insulin Aspart 1 00 Unit/1 Ml SUBCUT Not Given TIDWM [facility] Protocol Isosorbide Mononit rate 60 mg 08/31/20 07:00 08/31/20 06:46 Isosorbide [place] itrate Er 60 Mg Ta blet PO 60 mg BID@ ELINA Administration Non-Formulary Medi cation 50 mcg 08/31/20 19:00 09/03/20 16:07 Cholecalciferol (Vitamin D3) [[place] min D3] PO Not Given DAILY@1900 ELINA Ondansetron HCl 4 mg 08/31/20 00:03 09/02/20 20:20 Ondansetron 2 Mg /Ml Sdv 2 Ml IVP 4 mg Q8H PRN Administration vomiting, or N/V if npo Pantoprazole Sodiu m 40 mg 08/31/20 00:30 09/04/20 00:28 Pantoprazole 40 Mg Sdv IV 40 mg Q12H ELINA Administration Trazodone HCl 50 mg 09/01/20 21:00 09/03/20 21:24 Trazodone 50 Mg Tablet PO 50 mg BEDTIME ELINA Administration PFSH Anesthesia PFSH: Medical History Anemia Barretts esophagus Dementia Renal failure Stenosis of peripheral vascular stent Type 2 diabetes mellitus Surgical History History of renal stent History of thoracentesis Stented coronary artery Family History Son Diabetes Brother Cancer Sister Lung disease Father Cirrhosis Mother CAD (coronary artery disease) Social History Smoking and tobacco status: former smoker Quit status (tobacco): has quit using tobacco Year quit tobacco: 2020-Hx of 1PPD x 60 Year Second hand smoke exposure: Yes Smoking risk assessment/counseling performed?: No Alcohol intake: current Alcohol intake frequency: holidays/special occasions only Alcohol type: wine Counseling given: No Counseling given: No Caregiver/support person: Yes Lives independently: Yes Household members: family Marital status: / Current occupational status: retired History of recent travel: No Current gender identity: Female Data Anesthesia CBC & Chem 7: 09/04/20 04:52 09/04/20 04:52 Other Labs: Laboratory Results - last 48 hr 08/30/20 09/02/20 09/02/20 22:48 10:49 16:56 WBC RBC Hgb Hct MCV MCH MCHC RDW Plt Count MPV Neut % (Auto) Lymph % (Auto) [place] % (Auto) Eos % (Auto) Baso % (Auto) Neut # (Auto) Lymph # (Auto) [place] # (Auto) Eos # (Auto) Baso # (Auto) Nucleated RBC % (auto) Nucleated RBCs # Sodium Potassium Chloride Carbon Dioxide Anion Gap BUN Creatinine GFR Calculation Glucose POC Glucose 120 H 369 H Calculated Osmolality Calcium Magnesium Total Bilirubin AST ALT Alkaline Phosphatase Total Protein Albumin Globulin Blood Type Rho(D) Type Antibody Screen Crossmatch See Detail 09/02/20 09/02/20 09/02/20 20:52 20:53 21:22 WBC RBC Hgb Hct MCV MCH MCHC RDW Plt Count MPV Neut % (Auto) Lymph % (Auto) [place] % (Auto) Eos % (Auto) Baso % (Auto) Neut # (Auto) Lymph # (Auto) [place] # (Auto) Eos # (Auto) Baso # (Auto) Nucleated RBC % (auto) Nucleated RBCs # Sodium Potassium Chloride Carbon Dioxide Anion Gap BUN Creatinine GFR Calculation Glucose POC Glucose 31 L* 31 L* 41 L Calculated Osmolality Calcium Magnesium Total Bilirubin AST ALT Alkaline Phosphatase Total Protein Albumin Globulin Blood Type Rho(D) Type Antibody Screen Crossmatch 09/02/20 09/03/20 09/03/20 22:01 00:00 02:38 WBC RBC Hgb Hct MCV MCH MCHC RDW Plt Count MPV Neut % (Auto) Lymph % (Auto) [place] % (Auto) Eos % (Auto) Baso % (Auto) Neut # (Auto) Lymph # (Auto) [place] # (Auto) Eos # (Auto) Baso # (Auto) Nucleated RBC % (auto) Nucleated RBCs # Sodium Potassium Chloride Carbon Dioxide Anion Gap BUN Creatinine GFR Calculation Glucose POC Glucose 104 102 104 Calculated Osmolality Calcium Magnesium Total Bilirubin AST ALT Alkaline Phosphatase Total Protein Albumin Globulin Blood Type Rho(D) Type Antibody Screen Crossmatch 09/03/20 09/03/20 09/03/20 04:10 04:10 06:27 WBC 10.2 H RBC 2.34 L Hgb 7.0 L Hct 22.2 L MCV 94.9 MCH 29.9 MCHC 31.5 RDW 17.3 H Plt Count 129 L MPV 11.1 H Neut % (Auto) 82.0 Lymph % (Auto) 8.2 [place] % (Auto) 8.8 Eos % (Auto) 0.1 Baso % (Auto) 0.1 Neut # (Auto) 8.38 H Lymph # (Auto) 0.8 [place] # (Auto) 0.9 Eos # (Auto) 0.0 Baso # (Auto) 0.0 Nucleated RBC % (auto) 0 Nucleated RBCs # 0.0 Sodium 138 Potassium 3.7 Chloride 109 H Carbon Dioxide 16 L Anion Gap 16.7 BUN 100 H* Creatinine 4.6 H GFR Calculation Not Reportable Glucose 92 POC Glucose 108 Calculated Osmolality 317 H Calcium 8.2 L Magnesium 2.0 Total Bilirubin 0.5 AST 16 ALT 7 Alkaline Phosphatase 51 Total Protein 5.1 L Albumin 3.0 L Globulin 2.1 Blood Type Rho(D) Type Antibody Screen Crossmatch 09/03/20 09/03/20 09/03/20 11:00 11:10 16:39 WBC RBC Hgb Hct MCV MCH MCHC RDW Plt Count MPV Neut % (Auto) Lymph % (Auto) [place] % (Auto) Eos % (Auto) Baso % (Auto) Neut # (Auto) Lymph # (Auto) [place] # (Auto) Eos # (Auto) Baso # (Auto) Nucleated RBC % (auto) Nucleated RBCs # Sodium Potassium Chloride Carbon Dioxide Anion Gap BUN Creatinine GFR Calculation Glucose POC Glucose 136 H 141 H Calculated Osmolality Calcium Magnesium Total Bilirubin AST ALT Alkaline Phosphatase Total Protein Albumin Globulin Blood Type A Positive Rho(D) Type Positive Antibody Screen Negative Crossmatch See Detail 09/03/20 09/04/20 09/04/20 21:32 04:52 04:52 WBC 11.3 H RBC 2.88 L Hgb 8.7 L Hct 26.4 L MCV 91.7 MCH 30.2 MCHC 33.0 RDW 16.4 H Plt Count 125 L MPV 11.0 H Neut % (Auto) 84.1 Lymph % (Auto) 6.4 [place] % (Auto) 6.9 Eos % (Auto) 0.4 Baso % (Auto) 0.2 Neut # (Auto) 9.47 H Lymph # (Auto) 0.7 L [place] # (Auto) 0.8 Eos # (Auto) 0.1 Baso # (Auto) 0.0 Nucleated RBC % (auto) 0 Nucleated RBCs # 0.0 Sodium 138 Potassium 3.7 Chloride 107 Carbon Dioxide 16 L Anion Gap 18.7 BUN 107 H* Creatinine 4.7 H GFR Calculation Not Reportable Glucose 100 POC Glucose 127 H Calculated Osmolality 320 H Calcium 8.1 L Magnesium 1.9 Total Bilirubin 0.8 AST 15 ALT 8 Alkaline Phosphatase 56 Total Protein 5.1 L Albumin 2.9 L Globulin 2.2 Blood Type Rho(D) Type Antibody Screen Crossmatch 09/04/20 09/04/20 06:38 10:45 WBC RBC Hgb Hct MCV MCH MCHC RDW Plt Count MPV Neut % (Auto) Lymph % (Auto) [place] % (Auto) Eos % (Auto) Baso % (Auto) Neut # (Auto) Lymph # (Auto) [place] # (Auto) Eos # (Auto) Baso # (Auto) Nucleated RBC % (auto) Nucleated RBCs # Sodium Potassium Chloride Carbon Dioxide Anion Gap BUN Creatinine GFR Calculation Glucose POC Glucose 114 H 109 Calculated Osmolality Calcium Magnesium Total Bilirubin AST ALT Alkaline Phosphatase Total Protein Albumin Globulin Blood Type Rho(D) Type Antibody Screen Crossmatch Cardiac Studies: No Data to Display
[2020-09-04] MEDS: sodium chloride 0.9% 1,000 ML 30 ML IV (12:07)
--- NOTE | 2020-09-04 12:19 | PM.PN ---
Subjective Subjective: Interval history: Patient's hemoglobin has been slowly trending down, but she had undergone EGD for bleeding AVMs in [place] last month Vitals/I&O/Wt Last Vital Signs Temp 98.2 F 09/04/20 11:14 Pulse 74 09/04/20 11:14 Resp 16 09/04/20 11:14 BP 174/83 09/04/20 11:14 Pulse Ox 91 09/04/20 11:14 09/03/20 09/04/20 09/04/20 22:59 06:59 14:59 Intake Total 350 / 590 120 / 590 Output Total 200 / 500 300 / 500 Balance 150 / 90 -180 / 90 Weight last 48 hrs Weight 139 lb 6 oz Weight 140 lb 12.8 oz Physical Exam Narrative: EXAM NARRATIVE: Abdomen: Soft Data : 09/04/20 04:52 09/04/20 04:52 A&P Assessment and plan (1) Anemia: 75-year-old female with multiple comorbidities who is anemic. Patient had EGD with cautery of AVMs in [place] last month. Plan for EGD under MAC today Status: Acute Qualifiers: Anemia type: unspecified type Qualified Code(s): D64.9 - Anemia, unspecified Attestations Medical Necessity Statement*: GI bleed Coding Level of Care Code Acute Medical Claims Processor for [facility] Fwd Diagnoses Anemia D64.9 Anemia type: unspecified type
--- NOTE | 2020-09-04 13:58 | ANE.PACU2 ---
Inpatient post-anesthesia follow up: Airway intact: Yes Vital signs: Temperature 98.2 F Pulse Rate [Monito r] 79 Pulse Rate 74 Respiratory Rate 16 Blood Pressure [Le ft Arm] 159/59 Blood Pressure 174/83 Pulse Oximetry 91 Oxygen Delivery Me thod Nasal Cannula Oxygen Flow Rate 4 Fraction of Inspir ed Oxygen Hydration adequate: Yes Nausea and vomiting: No Mental status: Baseline
--- NOTE | 2020-09-04 14:24 | PC.SOCIAL ---
IMM Update Pg. 2 of IMM updated and reviewed with patient who verbalized understanding. Copy provided.
[2020-09-04] MEDS: ipratropium-albuterol 3 mL Neb INHALATION ×2 (15:26→21:15)
--- NOTE | 2020-09-04 16:09 | PC.RESP ---
Pulmonary Rehab information sent to patient.
[2020-09-04 16:48] LABS: Glucose Point of Care 112 mg/dL (70-110)
[2020-09-04] MEDS: hyDRALAzine 50 mg Tablet 100 MG PO (18:53)
[2020-09-04] MEDS: atorvastatin 40 mg Tablet PO (18:53)
[2020-09-04] MEDS: amlodipine 5 mg Tablet PO (18:53)
[2020-09-04] MEDS: isosorbide mononitrate ER 60 mg Tablet PO (18:54)
[2020-09-04] MEDS: trazodone 50 mg Tablet PO (20:26)
[2020-09-04 20:50] LABS: Glucose Point of Care 107 mg/dL (70-110)
[2020-09-04] MEDS: budesonide 0.5 mg/2 mL Neb INHALATION (21:15)
[2020-09-05] VITALS (15 sets, daily range): BP systolic 140–186; BP diastolic 50–57; PULSE 70–88; RESP 14–18; TEMP 36.5–36.8; O2SAT 95–98
[2020-09-05] MEDS: cloNIDine 0.1 mg Tablet 0.2 MG PO ×2 (06:07→18:26)
[2020-09-05] MEDS: hyDRALAzine 50 mg Tablet 100 MG PO ×3 (06:07→18:26)
[2020-09-05] MEDS: amlodipine 5 mg Tablet PO ×2 (06:07→18:26)
[2020-09-05] MEDS: isosorbide mononitrate ER 60 mg Tablet PO ×2 (06:09→18:25)
[2020-09-05 06:10] LABS: Glucose Point of Care 94 mg/dL (70-110)
[2020-09-05] MEDS: duloxetine 20 mg Capsule PO (06:11)
[2020-09-05] MEDS: budesonide 0.5 mg/2 mL Neb INHALATION ×2 (07:49→21:47)
[2020-09-05] MEDS: ipratropium-albuterol 3 mL Neb INHALATION ×4 (07:49→21:47)
[2020-09-05 08:59] LABS: Basophils % 0.3 %; Eosinophils # 0.1 10^3/uL (0.0-0.8); Eosinophils % 0.6 %; Hematocrit 33.5 % (37.0-47.0); Hemoglobin 10.9 g/dL (11.5-15.3); Lymphocytes # 0.8 10^3/uL (0.8-4.8); Lymphocytes % 5.4 %; Mean Corpuscular HGB Conc 32.5 g/dL (30.0-36.0); Mean Corpuscular Hemoglobin 29.8 pg (28.0-34.0); Mean Corpuscular Volume 91.5 fL (81-99); Mean Platelet Volume 11.6 fL (7.4-10.4); Monocytes # 0.8 10^3/uL (0.2-0.9); Monocytes % 5.7 %; Neutrophils # 12.29 10^3/uL (1.8-7.7); Neutrophils % 86.7 %; Nucleated Red Blood Cells % 0 %; Platelet Count 179 10^3/cmm (130-400); Red Blood Count 3.66 10^6/uL (4.1-5.3); Red Cell Distribution Width 16.1 % (12.1-15.1); White Blood Count 14.2 10^3/uL (4.0-10.0)
[2020-09-05 09:25] LABS: Alanine Aminotransferase 8 U/L (0-33); Albumin Level 3.4 g/dL (3.5-5.2); Alkaline Phosphatase 82 IU/L (35-105); Anion Gap 21.7 (5-19); Aspartate Amino Transferase 16 U/L (0-32); Calcium 8.8 mg/dL (8.5-10.5); Carbon Dioxide 13 mmol/L (22-29); Chloride 106 mmol/L (98-107); Globulin 2.8 g/dL (1.3-4.6); Glucose 91 mg/dL (65-115); Osmolality Calculated 317 mOsm/kg (285-295); Potassium 3.7 mmol/L (3.5-5.1); Sodium 137 mmol/L (136-145); Total Bilirubin 0.8 mg/dL (0.15-1.2); Total Protein 6.2 g/dL (6.6-8.7)
[2020-09-05 09:31] LABS: Blood Urea Nitrogen 107 mg/dL (8-23)
[2020-09-05] MEDS: FUROsemide 20 mg Tablet 40 MG PO (09:55)
[2020-09-05 11:12] LABS: Glucose Point of Care 144 mg/dL (70-110)
--- NOTE | 2020-09-05 11:53 | XRR_ITS ---
PROCEDURE INFORMATION: Exam: XR Chest, 2 Views Exam date and time: 09/05/2020 12:09 PM Age: 75 years old Clinical indication: Recurrent pleural effusion, leukocytosis TECHNIQUE: Imaging protocol: XR of the chest Views: 2 views. COMPARISON: CR XR chest 1V portable [id number] 09/01/2020 11:24 AM FINDINGS: Lungs: Suspect at least bibasilar atelectasis, more so on the left. Pneumonia is not excluded. No pulmonary vascular congestion or perihilar edema. Pleural spaces: Recurrent right pleural effusion, currently small in volume. There is a small to moderate volume left pleural effusion, possibly slightly larger in volume in the interval. No pneumothorax. Heart/Mediastinum: The heart is partially silhouetted out but is not felt to be enlarged. The mediastinal contours are normal. Vasculature: The thoracic aorta is atherosclerotic but not aneurysmal. Bones/joints: Multilevel disc degeneration in the thoracic spine. XR/XR chest 2V* [id number] IMPRESSION: 1. Bilateral pleural effusions, larger on the left. 2. Bibasilar airspace disease.
--- NOTE | 2020-09-05 11:54 | PM.PN ---
Subjective Subjective: Interval history: Patient's hemoglobin and platelets improved. White blood cell count increased. Patient denies any complaints this morning including shortness of breath or chest pain. Patient had EGD performed yesterday with 3 AVMs cauterized and one concerning lesion biopsied. Vitals/I&O/Wt Last Vital Signs Temp 97.8 F 09/05/20 11:44 Pulse 71 09/05/20 11:44 Resp 17 09/05/20 11:44 BP 152/57 09/05/20 11:44 Pulse Ox 96 09/05/20 11:44 09/04/20 09/05/20 09/05/20 22:59 06:59 14:59 Intake Total 460 / 2460 360 / 360 Balance 460 / 2460 360 / 360 Weight last 48 hrs Weight 63.14 kg Weight 63.219 kg Physical Exam Narrative: EXAM NARRATIVE: Lungs clear. Heart is regular. No lower extremities. Data : 09/05/20 08:21 09/05/20 08:21 A&P Assessment and plan (1) GI bleed: This appears to be secondary to recurrent AVM bleeds Status: Acute (2) Acute blood loss anemia: Secondary to what appears to be upper GI bleed. Status: Acute (3) Pleural effusion: Which appears to be the cause of patient's right-sided chest pain. Infection ruled out. Status: Inactive (4) COPD (chronic obstructive pulmonary disease): Currently not in exacerbation Status: Acute Qualifiers: COPD type: unspecified COPD Qualified Code(s): J44.9 - Chronic obstructive pulmonary disease, unspecified (5) Chronic diastolic heart failure: With associated pericardial effusion. Kidney disease appears to be the major cause of patient's fluid overload Status: Acute (6) Type 2 diabetes mellitus: Check hemoglobin A1c Status: Inactive (7) Chronic kidney disease, stage IV (severe): Atrophied right kidney. Chronic. Likely related to diabetes and peripheral vascular disease. Status: Acute (8) Thrombocytopenia: Not present on admission. Consumptive in origin. Improved Status: Acute Additional A&P Information PLAN: We will start patient on ceftriaxone due to concern for underlying infection as her white blood cell count increased. UTI cannot be completely ruled out. I will request to review chest x-ray. I think once patient's bleeding controlled her kidney function will gradually improve back to her baseline. Continue with physical therapy. Will monitor for 1 more day and if shows improvement we will likely be able to dismiss patient home tomorrow. Attestations Medical Necessity Statement*: Patient with GI bleed, underlying infectious process and acute kidney injury requires close inpatient monitoring and treatment until deemed safe for discharge. Coding Level of Care Code Acute Photographic Intelligence Officer for [facility] Fwd Diagnoses GI bleed K92.2 Acute blood loss anemia D62 Pleural effusion J90 COPD (chronic obstructive pulmonary disease) J44.9 COPD type: unspecified COPD Chronic diastolic heart failure I50.32 Type 2 diabetes mellitus E11.9 Chronic kidney disease, stage IV (severe) N18.4 Thrombocytopenia D69.6
[2020-09-05] MEDS: cefTRIAXone 1,000 MG in sodium chloride 0.9% (plus) 50 ML 100 MG IV (12:44)
[2020-09-05] MEDS: pantoprazole 40 mg SDV IV (15:24)
[2020-09-05 17:12] LABS: Glucose Point of Care 121 mg/dL (70-110)
[2020-09-05] MEDS: atorvastatin 40 mg Tablet PO (18:26)
[2020-09-05 20:56] LABS: Glucose Point of Care 113 mg/dL (70-110)
[2020-09-05] MEDS: trazodone 50 mg Tablet PO (22:34)
[2020-09-06] VITALS (17 sets, daily range): BP systolic 159–180; BP diastolic 53–84; PULSE 65–90; RESP 14–21; TEMP 36.7–36.9; O2SAT 93–97; BMI 27.1
[2020-09-06] MEDS: pantoprazole 40 mg SDV IV ×2 (04:33→14:08)
[2020-09-06 05:38] LABS: Basophils % 0.2 %; Eosinophils # 0.1 10^3/uL (0.0-0.8); Eosinophils % 0.9 %; Hematocrit 26.7 % (37.0-47.0); Hemoglobin 8.6 g/dL (11.5-15.3); Lymphocytes # 0.8 10^3/uL (0.8-4.8); Lymphocytes % 6.7 %; Mean Corpuscular HGB Conc 32.2 g/dL (30.0-36.0); Mean Platelet Volume 10.7 fL (7.4-10.4); Monocytes # 0.9 10^3/uL (0.2-0.9); Monocytes % 7.6 %; Neutrophils # 10.02 10^3/uL (1.8-7.7); Neutrophils % 83.4 %; Nucleated Red Blood Cells % 0 %; Platelet Count 146 10^3/cmm (130-400); Red Blood Count 2.87 10^6/uL (4.1-5.3); Red Cell Distribution Width 16.2 % (12.1-15.1)
[2020-09-06 06:04] LABS: Alanine Aminotransferase 8 U/L (0-33); Albumin Level 2.8 g/dL (3.5-5.2); Alkaline Phosphatase 59 IU/L (35-105); Anion Gap 19.6 (5-19); Aspartate Amino Transferase 12 U/L (0-32); Calcium 8.1 mg/dL (8.5-10.5); Carbon Dioxide 14 mmol/L (22-29); Chloride 107 mmol/L (98-107); Globulin 2.2 g/dL (1.3-4.6); Glucose 95 mg/dL (65-115); Magnesium 1.9 mg/dL (1.7-2.3); Osmolality Calculated 317 mOsm/kg (285-295); Potassium 3.6 mmol/L (3.5-5.1); Sodium 137 mmol/L (136-145); Total Bilirubin 0.5 mg/dL (0.15-1.2)
[2020-09-06 06:10] LABS: Blood Urea Nitrogen 106 mg/dL (8-23)
[2020-09-06] MEDS: hyDRALAzine 50 mg Tablet 100 MG PO ×3 (06:37→18:06)
[2020-09-06] MEDS: cloNIDine 0.1 mg Tablet 0.2 MG PO ×2 (06:37→18:06)
[2020-09-06] MEDS: isosorbide mononitrate ER 60 mg Tablet PO ×2 (06:37→18:06)
[2020-09-06] MEDS: amlodipine 5 mg Tablet PO ×2 (06:38→18:06)
[2020-09-06] MEDS: duloxetine 20 mg Capsule PO (06:41)
[2020-09-06 06:57] LABS: Glucose Point of Care 103 mg/dL (70-110)
[2020-09-06] MEDS: budesonide 0.5 mg/2 mL Neb INHALATION ×2 (07:53→20:19)
[2020-09-06] MEDS: ipratropium-albuterol 3 mL Neb INHALATION ×4 (07:53→20:20)
[2020-09-06] MEDS: FUROsemide 20 mg Tablet 40 MG PO (09:21)
--- NOTE | 2020-09-06 09:23 | PM.CONSULT ---
Providers/Reason For Consult Consulting Physican/Specialty*: adina garibay md / telenephrology Reason for Consult*: AGATA on CKD stage 4 Requesting Physcian: Dr. Skyler Mcmillan Attending Physician: Tyrell Mcmillan MD Primary Care Provider: Irasema Charles MD History of Present Illness History of Present Illness Tania Kiser is a 75 year old female CKD stage 4- b/l cr 3.7, h/o b/l renal art stents done in [facility] - fall 2019, COPD, AVM and GI bleeds- anemia, HTN, and DM- i do not know duration of DM and HTN. Pt here w/ sob due to anemia- found to have 3 AVM's Review of Systems General: Reports: 10 or more systems reviewed and unremarkable except in HPI and below and ROS unobtainable due to mental status Narrative: weak, nausea, dec sob, no rosales, no visual changes, no CP. + urinary incontinence, weakness, leg edema Meds/Allergies Home Medications and Allergies Home Medications Medication Instructions Recorded Confirmed Last Taken Type albuterol sulfate 2 puff INHALATION 6XD PRN 08/26/20 09/01/20 08/26/20 History alprazolam [Xanax] 0.25 - 0.5 mg PO DAILY PRN 08/26/20 09/01/20 08/26/20 History amlodipine 5 mg PO BID@0700,189908/26/20 09/01/20 08/26/20 History ascorbic acid (vitamin C) [Vitamin 500 mg PO DAILY@189908/26/20 09/01/20 08/25/20 History C] atorvastatin 40 mg PO BEDTIME@189908/26/20 09/01/20 08/25/20 History cholecalciferol (vitamin D3) 50 mcg PO DAILY@189908/26/20 09/01/20 08/25/20 History [Vitamin D3] clonidine HCl 0.2 mg PO BID@0700,189908/26/20 09/01/20 08/26/20 History duloxetine 20 mg PO DAILY@07 08/26/20 09/01/20 08/26/20 History ferrous sulfate 325 mg PO DAILY@189908/26/20 09/01/20 08/25/20 History hydralazine 100 mg PO TID@07,12,19 08/26/20 09/01/20 08/26/20 History ibuprofen 400 mg PO ONCE PRN 08/26/20 09/01/20 08/26/20 History 400 mg isosorbide mononitrate 60 mg PO BID@07,19 08/26/20 09/01/20 08/26/20 History pantoprazole 40 mg PO DAILY@0700 08/26/20 09/01/20 08/26/20 History potassium chloride See Rx Instructions .ROUTE .COMPLEX 08/26/20 09/01/20 08/26/20 History budesonide 0.5 mg/2 mL suspension 0.5 mg INHALATION BID 30 Days #120 08/29/20 09/01/20 Unknown Rx for nebulization ml furosemide 20 mg tablet 40 mg PO DAILY 30 Days #60 tab 08/29/20 09/01/20 Unknown Rx ipratropium 0.5 mg-albuterol 3 mg 3 ml INHALATION QID 30 Days #320 ml 08/29/20 09/01/20 Unknown Rx (2.5 mg base)/3 mL nebulization soln carvedilol 12.5 mg PO BID@071900 09/01/20 09/01/20 Unknown History Allergies Allergy/AdvReac Type Severity Reaction Status Date / Time No Known Allergies Allergy Verified 08/30/20 21:10 Current Medications Current Medications Generic Name Dose Route Start Last Admin Trade Name Freq PRN Reason Stop Dose Admin Acetaminophen 650 mg 08/31/20 01:56 09/01/20 14:45 Acetaminophen 325 Mg Tablet PO 650 mg Q6H PRN Administration MILD PAIN Albuterol Sulfate 2.5 mg 09/01/20 01:34 09/01/20 01:44 Albuterol 2.5 Mg/0.5 Ml Neb INHALATION 2.5 mg Q4H.RESPIRATORY PRN Administration SHORTNESS OF BREATH Albuterol/Ipratropium 3 ml 09/03/20 08:00 09/06/20 07:53 Ipratropium-Albuterol 3 Ml Neb INHALATION 3 ml QID.RESPIRATORY ELINA Administration Amlodipine Besylate 5 mg 08/31/20 07:00 09/06/20 06:38 Amlodipine 5 Mg Tablet PO 5 mg BID@0700,1900 ELINA Administration Atorvastatin Calcium 40 mg 08/31/20 19:00 09/05/20 18:26 Atorvastatin 40 Mg Tablet PO 40 mg BEDTIME@1900 ELINA Administration Budesonide 0.5 mg 09/03/20 08:00 09/06/20 07:53 Budesonide 0.5 Mg/2 Ml Neb INHALATION 0.5 mg BID.RESPIRATORY ELINA Administration Clonidine HCl 0.2 mg 08/31/20 07:00 09/06/20 06:37 Clonidine 0.1 Mg Tablet PO 0.2 mg BID@0700,1900 ELINA Administration Dextrose 50 ml 08/31/20 08:18 09/02/20 21:27 Dextrose 50% Syringe 50 Ml IVP 50 ml PRN PRN Administration hypoglycemia protocol Protocol Duloxetine HCl 20 mg 08/31/20 07:00 09/06/20 06:41 Duloxetine 20 Mg Capsule PO 20 mg DAILY@07 ELINA Administration Furosemide 40 mg 08/31/20 09:00 09/06/20 09:21 Furosemide 20 Mg Tablet PO 40 mg DAILY ELINA Administration Hydralazine HCl 100 mg 08/31/20 07:00 09/06/20 06:37 Hydralazine 50 Mg Tablet PO 100 mg TID@ ELINA Administration Dextrose 500 mls @ 100 mls/hr 08/31/20 08:18 09/03/20 06:23 D5w IV Infused ONCE PRN Infusion Adult Acute Hypoglycemia Prot Protocol Ceftriaxone Sodium 1,000 mg/ 50 mls @ 100 mls/hr 09/05/20 12:00 09/05/20 13:42 Sodium Chloride IV Infused Q24H ELINA Infusion Protocol Insulin Aspart 0 unit 08/31/20 12:00 09/06/20 08:26 Insulin Aspart 100 Unit/1 Ml SUBCUT Not Given TIDWM ELINA Protocol Isosorbide Mononitrate 60 mg 08/31/20 07:00 09/06/20 06:37 Isosorbide Mononitrate Er 60 Mg Tablet PO 60 mg BID@ ELINA Administration Non-Formulary Medication 50 mcg 08/31/20 19:00 09/05/20 18:26 Cholecalciferol (Vitamin D3) [Vitamin D3] PO Not Given DAILY@1900 [facility] Ondansetron HCl 4 mg 08/31/20 00:03 09/02/20 20:20 Ondansetron 2 Mg/Ml Sdv 2 Ml IVP 4 mg Q8H PRN Administration vomiting, or N/V if npo Pantoprazole Sodium 40 mg 08/31/20 00:30 09/06/20 04:33 Pantoprazole 40 Mg Sdv IV 40 mg Q12H ELINA Administration Trazodone HCl 50 mg 09/01/20 21:00 09/05/20 22:34 Trazodone 50 Mg Tablet PO 50 mg BEDTIME ELINA Administration PFSH Acute PFSH: Medical History Anemia Barretts esophagus Dementia Renal failure Stenosis of peripheral vascular stent Type 2 diabetes mellitus Surgical History History of renal stent History of thoracentesis Stented coronary artery Family History Son Diabetes Brother Cancer Sister Lung disease Father Cirrhosis Mother CAD (coronary artery disease) Social History Smoking and tobacco status: former smoker Quit status (tobacco): has quit using tobacco Year quit tobacco: 2020-Hx of 1PPD x 60 Year Second hand smoke exposure: Yes Smoking risk assessment/counseling performed?: No Alcohol intake: current Alcohol intake frequency: holidays/special occasions only Alcohol type: wine Counseling given: No Counseling given: No Caregiver/support person: Yes Lives independently: Yes Household members: family Marital status: / Current occupational status: retired History of recent travel: No Current gender identity: Female Vitals/I&O/Wt Last Vital Signs Temp 98.1 F 09/06/20 08:00 Pulse 72 09/06/20 08:09 Resp 18 09/06/20 08:00 BP 180/57 09/06/20 08:00 Pulse Ox 93 09/06/20 08:00 09/05/20 09/06/20 09/06/20 22:59 06:59 14:59 Intake Total 220 / 990 100 / 1090 Balance 220 / 990 100 / 1090 Weight last 48 hrs Weight 63.14 kg Weight 63.14 kg Physical Exam Narrative: EXAM NARRATIVE: NARD, BP elevated, in bed HEENT- nc/at, eomi neck- no jvp lungs cta b/l heart reg abd soft, nt, ND, +BS ext no edema poor DP and PT pulses neuro- lethargic, confused A&P Additional A&P Information 75 yr old female long standing HTN, DM, CKD stage 4, recent Right Renal art stent in May 2020, copd, diastolic dysfunction, PVD- worsening depression and dementia since her . PT had AVM's. pt here w/ anemia, sob, recurrent AVM's and worsening renal fxn. imaging revealed pleural and pericardial effusions 1. CKD progressing to ESRD. Cr in September 2019 was 1.5 mg/dl, Apr 2020 cr 2.38- (i got history from Dr. Garsia- [phone] office, cell [phone]). in may placed right renal art stent. Pt presented to eR on 2020 w/ cr 3.7. now here w/ admission for GI bleed and cr rising over 5 and she has pleural effusions and pericardial effusion. -as volume overloaded, met acidosis, uremic, effusions- I discussed w/ Dr. Mcmillan, Dr. Garsia- her [place] [employer] Operator, and w/ pts daughters- and we are recommending HD. I explained risks and benefits of dialysis w/ pts daughter Mari Wallace- [phone] , and she consents to dialysis - Dr. Arthur Hines called to place a line -etiology of CKD is dm, htn, JT -renal us w/ atrophic rt kidney -PPIs can cause renal failure- as AVM's not ulcer- see if GI/ surgery is okay changing PPI to H2 tanna 2. htn- monitor w/ HD 3. anemia- AVM's -check iron studies -epo when BP improves 4. bone- mineral-metabolism of CKD/ ESRD- check vit d levels, pth, ca, phos 5. diastolic dysfunction- monitor w/ volume removal on HD seen w/ RN- telehealth visit Consult Attestations Medical Necessity Statement: AGATA, CKD stage 4, htn, dm, copd, diastolic dysfunction, and modertae sized pericardial effusion- need to start HD Time Spent in Patient Care: Greater than 35 minutes (>than 50% of time spent in counselling and/or direct pt care on unit). Coding Level of Care Code Acute Utility Helicopter Repairer for [facility]
--- NOTE | 2020-09-06 10:23 | PC.SOCIAL ---
IM follow up provided and explained.Pt verbalized understanding.
--- NOTE | 2020-09-06 10:29 | P.PN_ITS ---
Subjective Subjective: Interval history: Hemoglobin further declined to 8.6. Unfortunately creatinine significantly worsened and case was discussed with Dr. Feliz who saw patient in consultation. Hemodialysis felt necessary and we will consult Dr. Hines for placement of hemodialysis catheter. Patient otherwise this morning denies any shortness of breath or chest pain. Denied any complaints. Reports poor appetite and oral intake. Chest x-ray appears to show pneumonia in addition to pleural effusions. She was noted to have left lower extremity swelling Vitals/I&O/Wt Last Vital Signs Temp 98.1 F 09/06/20 08:00 Pulse 72 09/06/20 08:09 Resp 18 09/06/20 08:00 BP 180/57 09/06/20 08:00 Pulse Ox 93 09/06/20 08:00 09/05/20 09/06/20 09/06/20 22:59 06:59 14:59 Intake Total 220 / 990 100 / 1090 120 / 120 Balance 220 / 990 100 / 1090 120 / 120 Weight last 48 hrs Weight 63.14 kg Weight 63.14 kg Physical Exam Narrative: EXAM NARRATIVE: Lungs with decreased breath sounds at bases but otherwise clear.. Heart is regular. Left lower extremity edema. Data : 09/06/20 05:25 09/06/20 05:25 A&P Assessment and plan (1) GI bleed: This appears to be secondary to recurrent AVM bleeds Status: Acute (2) Acute blood loss anemia: Secondary to what appears to be upper GI bleed. Status: Acute (3) Pleural effusion: Which appears to be the cause of patient's right-sided chest pain. Infection ruled out. Status: Inactive (4) COPD (chronic obstructive pulmonary disease): Currently not in exacerbation Status: Acute Qualifiers: COPD type: unspecified COPD Qualified Code(s): J44.9 - Chronic obstructive pulmonary disease, unspecified (5) Chronic diastolic heart failure: With associated pericardial effusion. Kidney disease appears to be the major cause of patient's fluid overload Status: Acute (6) Type 2 diabetes mellitus: Check hemoglobin A1c Status: Inactive (7) Chronic kidney disease, stage IV (severe): Atrophied right kidney. Chronic. Likely related to diabetes and peripheral vascular disease. Status: Acute (8) Thrombocytopenia: Not present on admission. Consumptive in origin. Improved Status: Acute Additional A&P Information PLAN: Continue ceftriaxone as patient's white blood cell count improved. Monitor hemoglobin. Continue high-dose PPI. Proceed with hemodialysis catheter placement and dialysis. Patient's daughter was updated. Will request left lower extremity venous ultrasound. Attestations Medical Necessity Statement*: Patient with gradually worsening kidney function and now requiring hemodialysis requires close inpatient monitoring and treatment. Coding Level of Care Code Acute Process Improvement Consultant for [facility] Fwd Diagnoses GI bleed K92.2 Acute blood loss anemia D62 Pleural effusion J90 COPD (chronic obstructive pulmonary disease) J44.9 COPD type: unspecified COPD Chronic diastolic heart failure I50.32 Type 2 diabetes mellitus E11.9 Chronic kidney disease, stage IV (severe) N18.4 Thrombocytopenia D69.6
--- NOTE | 2020-09-06 10:37 | USCV_ITS ---
Tania Kiser Age: 75 Gender: F : 1945 Exam Date: 09/06/2020 13:02 Ordering Phys: Tyrell Cm MD Technologist: Jonah Milan Exam Location: [facility] [place] Indication: LT LEG PAIN AND EDEMA PROCEDURES: Venous duplex imaging was performed in only the left lower extremity. The following venous structures were evaluated: common femoral vein, profunda vein, proximal portion of the greater saphenous vein, superficial femoral vein, and the popliteal vein. In addition, the posterior tibial and peroneal trunk were evaluated. On the left side, the common femoral, superficial femoral, profunda femoral, popliteal, posterior tibial, greater saphenous veins, and the peroneal trunk were identified and interrogated in the standard fashion. These veins were found to be easily compressible with spontaneous blood flow. No evidence of insufficiency or thrombus noted. FINDINGS: Normal 2-D Doppler and augmentation and compressibility throughout the lower extremity venous structures. Additional imaging through the proximal calf veins also reveals no thrombus. Limited evaluation of the greater saphenous vein is patent with no thrombus.. CONCLUSIONS No evidence of left lower extremity DVT. Subcutaneous edema lower leg. Albino Wills MD (Electronically Signed) Final Date: 06 September 2020 14:45 S
[2020-09-06 11:13] LABS: Calcium 8.3 mg/dL (8.5-10.5); Parathyroid Hormone 88.7 pg/mL (15-65)
[2020-09-06 11:14] LABS: Hepatitis B Surface AB 9.4 (0-8.5); Hepatitis B Surface Antigen Non-Reactive (Nonreactive); Hepatitis C Virus Antibody Non-Reactive (Nonreactive)
[2020-09-06 11:21] LABS: 25 Hydroxy Vitamin D 35 ng/mL (30-100); Thyroid Stimulating Hormone 4.51 uIU/mL (0.27-4.20)
[2020-09-06] MEDS: cefTRIAXone 1,000 MG in sodium chloride 0.9% (plus) 50 ML 100 MG IV (12:11)
[2020-09-06 12:23] LABS: Glucose Point of Care 118 mg/dL (70-110)
--- NOTE | 2020-09-06 12:40 | P.PN_ITS ---
Subjective Subjective: Interval history: Patient doing well, tolerating her diet, no evidence of active GI bleed. Patient needs a dialysis catheter placed Vitals/I&O/Wt Last Vital Signs Temp 98.1 F 09/06/20 08:00 Pulse 69 09/06/20 11:16 Resp 18 09/06/20 11:07 BP 180/57 09/06/20 08:00 Pulse Ox 96 09/06/20 11:07 09/05/20 09/06/20 09/06/20 22:59 06:59 14:59 Intake Total 220 / 1090 100 / 1090 120 / 120 Balance 220 / 1090 100 / 1090 120 / 120 Weight last 48 hrs Weight 139 lb 3.2 oz Weight 139 lb 3.2 oz Physical Exam Narrative: EXAM NARRATIVE: Neck: No cellulitis, hematoma or surgical scars Data : 09/06/20 05:25 09/06/20 05:25 A&P Assessment and plan (1) Chronic kidney disease, stage IV (severe): 75-year-old female with multiple comorbidities who is now developed uremia requiring dialysis. Patient already had regular diet for breakfast and therefore surgery cannot be scheduled until later in the day. 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
[2020-09-06 16:34] LABS: Glucose Point of Care 188 mg/dL (70-110)
[2020-09-06] MEDS: atorvastatin 40 mg Tablet PO (18:06)
[2020-09-06 21:03] LABS: Glucose Point of Care 117 mg/dL (70-110)
[2020-09-06] MEDS: trazodone 50 mg Tablet PO (21:53)
[2020-09-07] VITALS (16 sets, daily range): BP systolic 142–174; BP diastolic 50–84; PULSE 69–95; RESP 12–20; TEMP 36.4–37.5; O2SAT 93–99
--- NOTE | 2020-09-07 | SCC_ITS ---
Procedure Done: Placement of 16 Greenlandic 23 cm long AshSplit tunneled hemodialysis catheter in the right internal jugular vein 56.5 seconds of fluoroscopic guidance, for a cumulative dose of 6.34 mGy, was provided to Dr. Hines by the radiology department. C-arm images of the chest were saved for the patient's permanent record. [facility]
[2020-09-07] MEDS: pantoprazole 40 mg SDV IV (03:33)
[2020-09-07 06:10] LABS: Alanine Aminotransferase < 5 U/L (0-33); Albumin Level 2.9 g/dL (3.5-5.2); Alkaline Phosphatase 60 IU/L (35-105); Anion Gap 20.4 (5-19); Aspartate Amino Transferase 13 U/L (0-32); Calcium 8.4 mg/dL (8.5-10.5); Carbon Dioxide 12 mmol/L (22-29); Chloride 108 mmol/L (98-107); Glucose 81 mg/dL (65-115); Magnesium 1.8 mg/dL (1.7-2.3); Osmolality Calculated 316 mOsm/kg (285-295); Potassium 3.4 mmol/L (3.5-5.1); Sodium 137 mmol/L (136-145); Total Bilirubin 0.5 mg/dL (0.15-1.2); Total Protein 4.9 g/dL (6.6-8.7)
[2020-09-07 06:15] LABS: Ferritin 360 ng/mL (15-150); Iron 70 ug/dL (37-145); Percent Saturation 37.4 % (20-50); Phosphorus 5.2 mg/dL (2.5-4.5); Total Iron Binding Capacity 187 mcg/dl; Unsaturated Iron Binding 117 ug/dL (112-347)
[2020-09-07 06:23] LABS: Blood Urea Nitrogen 106 mg/dL (8-23)
[2020-09-07] MEDS: duloxetine 20 mg Capsule PO (06:29)
[2020-09-07] MEDS: hyDRALAzine 50 mg Tablet 100 MG PO (06:29)
[2020-09-07] MEDS: amlodipine 5 mg Tablet PO ×2 (06:29→08:43)
[2020-09-07] MEDS: isosorbide mononitrate ER 60 mg Tablet PO ×2 (06:29→18:28)
[2020-09-07] MEDS: cloNIDine 0.1 mg Tablet 0.2 MG PO (06:29)
[2020-09-07 06:56] LABS: Glucose Point of Care 94 mg/dL (70-110)
[2020-09-07] MEDS: budesonide 0.5 mg/2 mL Neb INHALATION ×2 (07:46→20:27)
[2020-09-07] MEDS: ipratropium-albuterol 3 mL Neb INHALATION ×3 (07:46→20:26)
[2020-09-07 07:57] LABS: Basophils % 0.2 %; Eosinophils # 0.2 10^3/uL (0.0-0.8); Eosinophils % 1.4 %; Hematocrit 27.1 % (37.0-47.0); Lymphocytes # 0.9 10^3/uL (0.8-4.8); Lymphocytes % 6.8 %; Mean Corpuscular HGB Conc 33.2 g/dL (30.0-36.0); Mean Corpuscular Volume 90.3 fL (81-99); Mean Platelet Volume 11.4 fL (7.4-10.4); Monocytes # 0.9 10^3/uL (0.2-0.9); Monocytes % 7.1 %; Neutrophils # 11.12 10^3/uL (1.8-7.7); Neutrophils % 83.5 %; Nucleated Red Blood Cells % 0 %; Platelet Count 168 10^3/cmm (130-400); Red Cell Distribution Width 16.1 % (12.1-15.1); White Blood Count 13.3 10^3/uL (4.0-10.0)
--- NOTE | 2020-09-07 08:09 | P.PN_ITS ---
Subjective Subjective: Interval history: feels better Medications: Reviewed: Yes Medication Review Details: Current Medications Acetaminophen (Acetaminophen 325 Mg Tablet) 650 mg PO Q6H PRN PRN Reason: MILD PAIN Last Admin: 09/01/20 14:45 Dose: 650 mg Documented by: Albuterol Sulfate (Albuterol 2.5 Mg/0.5 Ml Neb) 2.5 mg INHALATION Q4H.RESPIRATORY PRN PRN Reason: SHORTNESS OF BREATH Last Admin: 09/01/20 01:44 Dose: 2.5 mg Documented by: Albuterol/Ipratropium (Ipratropium-Albuterol 3 Ml Neb) 3 ml INHALATION QID.RESPIRATORY [facility] Last Admin: 09/07/20 07:46 Dose: 3 ml Documented by: Amlodipine Besylate (Amlodipine 5 Mg Tablet) 5 mg PO BID@0700,1900 [facility] Last Admin: 09/07/20 06:29 Dose: 5 mg Documented by: Atorvastatin Calcium (Atorvastatin 40 Mg Tablet) 40 mg PO BEDTIME@1900 [facility] Last Admin: 09/06/20 18:06 Dose: 40 mg Documented by: Budesonide (Budesonide 0.5 Mg/2 Ml Neb) 0.5 mg INHALATION BID.RESPIRATORY [facility] Last Admin: 09/07/20 07:46 Dose: 0.5 mg Documented by: Clonidine HCl (Clonidine 0.1 Mg Tablet) 0.2 mg PO BID@0700,1900 [facility] Last Admin: 09/07/20 06:29 Dose: 0.2 mg Documented by: Dextrose (Dextrose 50% Syringe 50 Ml) 25 ml IVP ONCE PRN; Protocol PRN Reason: hypoglycemia protocol Dextrose (Dextrose 50% Syringe 50 Ml) 50 ml IVP PRN PRN; Protocol PRN Reason: hypoglycemia protocol Last Admin: 09/02/20 21:27 Dose: 50 ml Documented by: Duloxetine HCl (Duloxetine 20 Mg Capsule) 20 mg PO DAILY@07 [facility] Last Admin: 09/07/20 06:29 Dose: 20 mg Documented by: Furosemide (Furosemide 20 Mg Tablet) 40 mg PO DAILY [facility] Last Admin: 09/06/20 09:21 Dose: 40 mg Documented by: Glucagon (Glucagon 1 Mg/Ml Inj 1 Ml) 1 mg IM ONCE PRN; Protocol PRN Reason: Adult Acute Hypoglycemia Prot. Hydralazine HCl (Hydralazine 50 Mg Tablet) 100 mg PO TID@07,12,19 [facility] Last Admin: 09/07/20 06:29 Dose: 100 mg Documented by: Dextrose (D5w) 500 mls @ 100 mls/hr IV ONCE PRN; Protocol PRN Reason: Adult Acute Hypoglycemia Prot Last Infusion: 09/03/20 06:23 Dose: Infused Documented by: Ceftriaxone Sodium 1,000 mg/ (Sodium Chloride) 50 mls @ 100 mls/hr IV Q24H [facility]; Protocol Last Infusion: 09/06/20 12:57 Dose: Infused Documented by: Insulin Aspart (Insulin Aspart 100 Unit/1 Ml) 0 unit SUBCUT TIDWM [facility]; Protocol Last Admin: 09/07/20 07:52 Dose: Not Given Documented by: Isosorbide Mononitrate (Isosorbide Mononitrate Er 60 Mg Tablet) 60 mg PO BID@ [facility] Last Admin: 09/07/20 06:29 Dose: 60 mg Documented by: Non-Formulary Medication (Cholecalciferol (Vitamin D3) [Vitamin D3]) 50 mcg PO DAILY@1900 [facility] Last Admin: 09/06/20 18:06 Dose: Not Given Documented by: Ondansetron HCl (Ondansetron 2 Mg/Ml Sdv 2 Ml) 4 mg IVP Q8H PRN PRN Reason: vomiting, or N/V if npo Last Admin: 09/02/20 20:20 Dose: 4 mg Documented by: Pantoprazole Sodium (Pantoprazole 40 Mg Sdv) 40 mg IV Q12H [facility] Last Admin: 09/07/20 03:33 Dose: 40 mg Documented by: Trazodone HCl (Trazodone 50 Mg Tablet) 50 mg PO BEDTIME [facility] Last Admin: 09/06/20 21:53 Dose: 50 mg Documented by: Vitals/I&O/Wt Last Vital Signs Temp 98.3 F 09/07/20 04:00 Pulse 92 09/07/20 08:00 Resp 20 H 09/07/20 07:45 BP 155/50 09/07/20 04:00 Pulse Ox 93 09/07/20 07:45 09/06/20 09/07/20 09/07/20 22:59 06:59 14:59 Intake Total 240 / 530 Balance 240 / 530 Weight last 48 hrs Weight 63.14 kg Physical Exam Narrative: EXAM NARRATIVE: NARD, BP improved, in bed HEENT- nc/at, eomi neck- no jvp lungs dull bases b/l heart reg, +s1 s2 abd soft, nt, ND, +BS ext 1+ edema poor DP and PT pulses neuro- more awake and alert Data : 09/07/20 07:38 09/07/20 05:24 A&P Additional A&P Information 75 yr old female long standing HTN, DM, CKD stage 4, recent Right Renal art stent in May 2020, copd, diastolic dysfunction, PVD- worsening depression and dementia since her . PT had AVM's. pt here w/ anemia, sob, recurrent AVM's and worsening renal fxn. imaging revealed pleural and pericardial effusions 1. CKD progressing to ESRD. Cr in September 2019 was 1.5 mg/dl, Apr 2020 cr 2.38- (i got history from Dr. Garsia- [phone] office, cell [phone]). in may placed right renal art stent. I also spoke w/ vasc surgeon in [facility] - Dr. Floyd Lopez Pt ([phone])- he stated that pt had multiple episodes of flash pulm edema, htn urgency and AGATA in [place]- imaging revealed atrophic rt kidney- this led to rt renal art stenting- he believes her previous polysomnograph tech may have done a renal scan. The presented to ER on Aug 27, 2020 w/ cr 3.7. now here w/ admission for GI bleed and cr rising over 5 and she has pleural effusions and pericardial effusion. -as volume overloaded, met acidosis, uremic, effusions- I discussed w/ Dr. Mcmillan, Dr. Garsia- her [place] Anatomic Pathology Manager, and w/ pts daughters- and we are recommending HD. I explained risks and benefits of dialysis w/ pts daughter Rita Wallace- [phone] , and she consents to dialysis - Dr. Arthur Hines called to place a line -etiology of CKD is dm, htn, JT -renal us w/ atrophic rt kidney -PPIs can cause renal failure- as AVM's not ulcer- see if GI/ surgery is okay changing PPI to H2 tanna HD today- 2.5 hrs, 3 k, remove 1.5 l -monitro if AGATA or likely ESRD 2. htn- monitor w/ HD- dec meds to allow for fluid removal 3. anemia- AVM's -check iron studies -epo when BP improves 4. bone- mineral-metabolism of CKD/ ESRD- check vit d levels, pth - 88- no vit d analouges, ca, phos - 5.2- low phos diet 5. 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
--- NOTE | 2020-09-07 09:24 | P.PN_ITS ---
Subjective Subjective: Interval history: Patient denies any complaints this morning including shortness of breath or chest pain. Denies any abdominal pain. Her creatinine increased to 5.6. She is scheduled to have hemodialysis catheter placed later today. Her left lower extremity venous ultrasound showed no evidence of DVT. Vitals/I&O/Wt Last Vital Signs Temp 98.4 F 09/07/20 08:00 Pulse 71 09/07/20 08:00 Resp 18 09/07/20 08:00 BP 160/56 09/07/20 08:00 Pulse Ox 96 09/07/20 08:00 09/06/20 09/07/20 09/07/20 22:59 06:59 14:59 Intake Total 240 / 530 Balance 240 / 530 Weight last 48 hrs Weight 63.14 kg Physical Exam Narrative: EXAM NARRATIVE: Lungs with decreased breath sounds at bases but otherwise clear.. Heart is regular. Left lower extremity edema. 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 Status: Acute (3) Pleural effusion: Which appears to be the cause of patient's right-sided chest pain. Infection ruled out. Status: Inactive (4) COPD (chronic obstructive pulmonary disease): Currently not in exacerbation Status: Acute Qualifiers: COPD type: unspecified COPD Qualified Code(s): J44.9 - Chronic obstructive pulmonary disease, unspecified (5) Chronic diastolic heart failure: With associated pericardial effusion. Kidney disease appears to be the major cause of patient's fluid overload Status: Acute (6) Type 2 diabetes mellitus: Check hemoglobin A1c Status: Inactive (7) Chronic kidney disease, stage IV (severe): Atrophied right kidney. Chronic. Likely related to diabetes and peripheral vascular disease. Status: Acute (8) Thrombocytopenia: Not present on admission. Consumptive in origin. Improved Status: Acute (9) Chronic respiratory failure with hypoxia: Present on admission. Status: Acute Additional A&P Information PLAN: Continue with placement of hemodialysis catheter and then hemodialysis. Hopefully patient needs dialysis for short period of time although it appears she may require it from now on. If hemoglobin remains stable will consider changing Protonix to H2 tanna. This may be challenging as patient has frequent AVM related GI bleeds. Attestations Medical Necessity Statement*: Patient with acute kidney injury and GI bleed requires close inpatient monitoring and treatment until deemed safe for discharge. Coding Level of Care Code Acute Operational Review Sergeant for g Fwd Diagnoses GI bleed K92.2 Acute blood loss anemia D62 Pleural effusion J90 COPD (chronic obstructive pulmonary disease) J44.9 COPD type: unspecified COPD Chronic diastolic heart failure I50.32 Type 2 diabetes mellitus E11.9 Chronic kidney disease, stage IV (severe) N18.4 Thrombocytopenia D69.6 Chronic respiratory failure with hypoxia J96.11
--- NOTE | 2020-09-07 09:29 | P.PN_ITS ---
Subjective Subjective: Interval history: Patient stable overnight, plan for dialysis today Vitals/I&O/Wt Last Vital Signs Temp 98.4 F 09/07/20 08:00 Pulse 71 09/07/20 08:00 Resp 18 09/07/20 08:00 BP 160/56 09/07/20 08:00 Pulse Ox 96 09/07/20 08:00 09/06/20 09/07/20 09/07/20 22:59 06:59 14:59 Intake Total 240 / 530 Balance 240 / 530 Weight last 48 hrs Weight 139 lb 3.2 oz Physical Exam Narrative: EXAM NARRATIVE: Patient awake Abdomen: Soft Data : 09/07/20 07:38 09/07/20 05:24 A&P Assessment and plan (1) Chronic kidney disease, stage IV (severe): 75-year-old female with multiple comorbidities who is now developed uremia requiring dialysis. plan for placement of tunneled hemodialysis catheter under MAC tomorrow Procedure, risks, benefits and alternatives have been discussed with the patient who wishes to proceed with surgery. 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
[2020-09-07 11:50] LABS: Glucose Point of Care 92 mg/dL (70-110)
[2020-09-07] MEDS: cefTRIAXone 1,000 MG in sodium chloride 0.9% (plus) 50 ML 100 MG IV (11:57)
[2020-09-07] MEDS: hyDRALAzine 50 mg Tablet PO ×2 (12:03→18:27)
--- NOTE | 2020-09-07 12:52 | P.ANESASSM_ITS ---
Pre-Anesthetic Assessment Pre-Anesthetic Assessment: Height/Weight: Height 1.52 m Weight 63.14 kg Temp Pulse Resp BP Pulse Ox 98.3 F 70 18 165/55 94 09/07/20 11:45 09/07/20 11:45 09/07/20 11:45 09/07/20 11:45 09/07/20 11:45 Preop Diagnosis: arf Proposed Procedure: Operation Date: 09/04/20 10:30 Proposed Procedures p EGD(Not Applicable) - Bautista Hines MD Operation Date: 09/07/20 13:00 Proposed Procedures p Dialysis Catheter Insertion(Not Applicable) - Bautista Hines MD Was Beta Dar taken within 24 hours: Yes Last intake: Intake Last Liquid Date 09/06/20 Last Liquid Time 00:00 Last Solid Date 09/06/20 Last Solid Time 17:00 Social: Social History: No alcohol and No tobacco Exam: Pre-Anes Outpt Exam: alert, oriented x 3 and regular rate & rhythm Additional Exam Findings (including area of procedure): BBS reduced Airway: Submandibular: WNL Cervical ROM: WNL MP: 2 Additional comments: Poor dentition Pulmonary: Pulmonary: COPD CV/HEM: CV/HEM: Anemia, CAD, CHF and HTN : : Chronic renal failure Neuropsych: Neuropsych: Anxiety and Dementia Anesthetic Plan: ASA status: 3 Anesthesia: MAC Risk of > 500 ml blood loss (7ml/kg in children): No Meds/Allergies Current Medications: Current Medications Generic Name Dose Route Start Last Admin Trade Name Freq PRN Reason Stop Dose Admin Acetaminophen 650 mg 08/31/20 01:56 09/01/20 14:45 Acetaminophen 32 5 Mg Tablet PO 650 mg Q6H PRN Administration MILD PAIN Albuterol Sulfate 2.5 mg 09/01/20 01:34 09/01/20 01:44 Albuterol 2.5 Mg /0.5 Ml Neb INHALATION 2.5 mg Q4H.RESPIRATORY P RN Administration SHORTNESS OF MEET TH Albuterol/Ipratrop ium 3 ml 09/03/20 08:00 09/07/20 11:30 Ipratropium-Albu terol 3 Ml Neb INHALATION 3 ml QID.RESPIRATORY S CH Administration Amlodipine Besylat e 5 mg 09/07/20 09:00 09/07/20 08:43 Amlodipine 5 Mg Tablet PO 5 mg DAILY ELINA Administration Atorvastatin Calci um 40 mg 08/31/20 19:00 09/06/20 18:06 Atorvastatin 40 Mg Tablet PO 40 mg BEDTIME@1900 ON LICENSE OF [facility] Administration Budesonide 0.5 mg 09/03/20 08:00 09/07/20 07:46 Budesonide 0.5 M g/2 Ml Neb INHALATION 0.5 mg BID.RESPIRATORY S CH Administration Dextrose 50 ml 08/31/20 08:18 09/02/20 21:27 Dextrose 50% Syr kelly 50 Ml IVP 50 ml PRN PRN Administration hypoglycemia prot ocol Protocol Duloxetine HCl 20 mg 08/31/20 07:00 09/07/20 06:29 Duloxetine 20 Mg Capsule PO 20 mg DAILY@07 ON LICENSE OF [facility] Administration Hydralazine HCl 50 mg 09/07/20 12:00 09/07/20 12:03 Hydralazine 50 M g Tablet PO 50 mg TID@ ON LICENSE OF [facility] Administration Dextrose 500 mls @ 100 mls /hr 08/31/20 08:18 09/03/20 06:23 D5w IV Infused ONCE PRN Infusion Adult Acute Hypog lycemia Prot Protocol Ceftriaxone Sodium 1,000 mg/ 50 mls @ 100 mls/ hr 09/05/20 12:00 09/07/20 12:30 Sodium Chloride IV Infused Q24H ON LICENSE OF [facility] Infusion Protocol Insulin Aspart 0 unit 08/31/20 12:00 09/07/20 11:53 Insulin Aspart 1 00 Unit/1 Ml SUBCUT Not Given TIDWM ON LICENSE OF [facility] Protocol Isosorbide Mononit rate 60 mg 08/31/20 07:00 09/07/20 06:29 Isosorbide [place] itrate Er 60 Mg Ta blet PO 60 mg BID@ ON LICENSE OF [facility] Administration Non-Formulary Medi cation 50 mcg 08/31/20 19:00 09/06/20 18:06 Cholecalciferol (Vitamin D3) [[place] min D3] PO Not Given DAILY@1900 ON LICENSE OF [facility] Ondansetron HCl 4 mg 08/31/20 00:03 09/02/20 20:20 Ondansetron 2 Mg /Ml Sdv 2 Ml IVP 4 mg Q8H PRN Administration vomiting, or N/V if npo Pantoprazole Sodiu m 40 mg 08/31/20 00:30 09/07/20 03:33 Pantoprazole 40 Mg Sdv IV 40 mg Q12H ELINA Administration Trazodone HCl 50 mg 09/01/20 21:00 09/06/20 21:53 Trazodone 50 Mg Tablet PO 50 mg BEDTIME ELINA Administration PFSH Anesthesia PFSH: Medical History Anemia Barretts esophagus Dementia Renal failure Stenosis of peripheral vascular stent Type 2 diabetes mellitus Surgical History History of renal stent History of thoracentesis Stented coronary artery Family History Son Diabetes Brother Cancer Sister Lung disease Father Cirrhosis Mother CAD (coronary artery disease) Social History Smoking and tobacco status: former smoker Quit status (tobacco): has quit using tobacco Year quit tobacco: 2020-Hx of 1PPD x 60 Year Second hand smoke exposure: Yes Smoking risk assessment/counseling performed?: No Alcohol intake: current Alcohol intake frequency: holidays/special occasions only Alcohol type: wine Counseling given: No Counseling given: No Caregiver/support person: Yes Lives independently: Yes Household members: family Marital status: / Current occupational status: retired History of recent travel: No Current gender identity: Female Data Anesthesia CBC & Chem 7: 09/07/20 07:38 09/07/20 05:24 Other Labs: Laboratory Results - last 48 hr 09/03/20 09/05/20 09/05/20 11:00 16:50 20:51 WBC Corrected WBC RBC Hgb Hct MCV MCH MCHC RDW Plt Count MPV Gran % Neut % (Auto) Lymph % (Auto) [place] % (Auto) Eos % (Auto) Baso % (Auto) Neut # (Auto) Lymph # (Auto) [place] # (Auto) Eos # (Auto) Baso # (Auto) Absolute Gran (auto) Nucleated RBC % (auto) Nucleated RBCs # Sodium Potassium Chloride Carbon Dioxide Anion Gap BUN Creatinine GFR Calculation Glucose POC Glucose 121 H 113 H Calculated Osmolality Calcium Phosphorus Magnesium Iron TIBC % Saturation Unsat Iron Binding Ferritin Total Bilirubin AST ALT Alkaline Phosphatase Total Protein Albumin Globulin 25-OH Vitamin D Total TSH PTH Intact Calcium (PTH Intact) Hep Bs Antigen Hep Bs Antibody Hepatitis C Antibody Crossmatch See Detail 09/06/20 09/06/20 09/06/20 05:25 05:25 05:25 WBC 12.0 H Corrected WBC RBC 2.87 L Hgb 8.6 L Hct 26.7 L MCV 93.0 MCH 30.0 MCHC 32.2 RDW 16.2 H Plt Count 146 MPV 10.7 H Gran % Neut % (Auto) 83.4 Lymph % (Auto) 6.7 [place] % (Auto) 7.6 Eos % (Auto) 0.9 Baso % (Auto) 0.2 Neut # (Auto) 10.02 H Lymph # (Auto) 0.8 [place] # (Auto) 0.9 Eos # (Auto) 0.1 Baso # (Auto) 0.0 Absolute Gran (auto) Nucleated RBC % (auto) 0 Nucleated RBCs # 0.0 Sodium 137 Potassium 3.6 Chloride 107 Carbon Dioxide 14 L Anion Gap 19.6 H BUN 106 H* Creatinine 5.3 H GFR Calculation Not Reportable Glucose 95 POC Glucose Calculated Osmolality 317 H Calcium 8.1 L Phosphorus Magnesium 1.9 Iron TIBC % Saturation Unsat Iron Binding Ferritin Total Bilirubin 0.5 AST 12 ALT 8 Alkaline Phosphatase 59 Total Protein 5.0 L Albumin 2.8 L Globulin 2.2 25-OH Vitamin D Total TSH PTH Intact 88.7 H Calcium (PTH Intact) 8.3 L Hep Bs Antigen Non-reactive Hep Bs Antibody 9.4 H Hepatitis C Antibody Non-reactive Crossmatch 09/06/20 09/06/20 09/06/20 05:25 06:53 12:16 WBC Corrected WBC RBC Hgb Hct MCV MCH MCHC RDW Plt Count MPV Gran % Neut % (Auto) Lymph % (Auto) [place] % (Auto) Eos % (Auto) Baso % (Auto) Neut # (Auto) Lymph # (Auto) [place] # (Auto) Eos # (Auto) Baso # (Auto) Absolute Gran (auto) Nucleated RBC % (auto) Nucleated RBCs # Sodium Potassium Chloride Carbon Dioxide Anion Gap BUN Creatinine GFR Calculation Glucose POC Glucose 103 118 H Calculated Osmolality Calcium Phosphorus Magnesium Iron TIBC % Saturation Unsat Iron Binding Ferritin Total Bilirubin AST ALT Alkaline Phosphatase Total Protein Albumin Globulin 25-OH Vitamin D Total 35 TSH 4.51 H PTH Intact Calcium (PTH Intact) Hep Bs Antigen Hep Bs Antibody Hepatitis C Antibody Crossmatch 09/06/20 09/06/20 09/07/20 16:30 20:58 05:24 WBC Cancelled Corrected WBC Cancelled RBC Cancelled Hgb Cancelled Hct Cancelled MCV Cancelled MCH Cancelled MCHC Cancelled RDW Cancelled Plt Count Cancelled MPV Cancelled Gran % Cancelled Neut % (Auto) Cancelled Lymph % (Auto) Cancelled [place] % (Auto) Cancelled Eos % (Auto) Cancelled Baso % (Auto) Cancelled Neut # (Auto) Cancelled Lymph # (Auto) Cancelled [place] # (Auto) Cancelled Eos # (Auto) Cancelled Baso # (Auto) Cancelled Absolute Gran (auto) Cancelled Nucleated RBC % (auto) Cancelled Nucleated RBCs # Cancelled Sodium Potassium Chloride Carbon Dioxide Anion Gap BUN Creatinine GFR Calculation Glucose POC Glucose 188 H 117 H Calculated Osmolality Calcium Phosphorus Magnesium Iron TIBC % Saturation Unsat Iron Binding Ferritin Total Bilirubin AST ALT Alkaline Phosphatase Total Protein Albumin Globulin 25-OH Vitamin D Total TSH PTH Intact Calcium (PTH Intact) Hep Bs Antigen Hep Bs Antibody Hepatitis C Antibody Crossmatch 09/07/20 09/07/20 09/07/20 05:24 05:24 06:51 WBC Corrected WBC RBC Hgb Hct MCV MCH MCHC RDW Plt Count MPV Gran % Neut % (Auto) Lymph % (Auto) [place] % (Auto) Eos % (Auto) Baso % (Auto) Neut # (Auto) Lymph # (Auto) [place] # (Auto) Eos # (Auto) Baso # (Auto) Absolute Gran (auto) Nucleated RBC % (auto) Nucleated RBCs # Sodium 137 Potassium 3.4 L Chloride 108 H Carbon Dioxide 12 L Anion Gap 20.4 H BUN 106 H* Creatinine 5.6 H* GFR Calculation Not Reportable Glucose 81 POC Glucose 94 Calculated Osmolality 316 H Calcium 8.4 L Phosphorus 5.2 H Magnesium 1.8 Iron 70 TIBC 187 % Saturation 37.4 Unsat Iron Binding 117 Ferritin 360 H Total Bilirubin 0.5 AST 13 ALT < 5 Alkaline Phosphatase 60 Total Protein 4.9 L Albumin 2.9 L Globulin 2.0 25-OH Vitamin D Total TSH PTH Intact Calcium (PTH Intact) Hep Bs Antigen Hep Bs Antibody Hepatitis C Antibody Crossmatch 09/07/20 09/07/20 07:38 11:42 WBC 13.3 H Corrected WBC RBC 3.00 L Hgb 9.0 L Hct 27.1 L MCV 90.3 MCH 30.0 MCHC 33.2 RDW 16.1 H Plt Count 168 MPV 11.4 H Gran % Neut % (Auto) 83.5 Lymph % (Auto) 6.8 [place] % (Auto) 7.1 Eos % (Auto) 1.4 Baso % (Auto) 0.2 Neut # (Auto) 11.12 H Lymph # (Auto) 0.9 [place] # (Auto) 0.9 Eos # (Auto) 0.2 Baso # (Auto) 0.0 Absolute Gran (auto) Nucleated RBC % (auto) 0 Nucleated RBCs # 0.0 Sodium Potassium Chloride Carbon Dioxide Anion Gap BUN Creatinine GFR Calculation Glucose POC Glucose 92 Calculated Osmolality Calcium Phosphorus Magnesium Iron TIBC % Saturation Unsat Iron Binding Ferritin Total Bilirubin AST ALT Alkaline Phosphatase Total Protein Albumin Globulin 25-OH Vitamin D Total TSH PTH Intact Calcium (PTH Intact) Hep Bs Antigen Hep Bs Antibody Hepatitis C Antibody Crossmatch Cardiac Studies: No Data to Display
[2020-09-07] MEDS: sodium chloride 0.9% 1,000 ML 30 ML IV (13:11)
--- NOTE | 2020-09-07 13:53 | SC_ITS ---
WS: [id number] C-arm fluoroscopy of the right chest for dialysis catheter placement, 09/07/2020 Clinical Data: SURGERY Comparison: PA and lateral chest, 09/05/2020. Findings: The right dialysis catheter was inserted into the right internal jugular vein and ends in the superio r vena cava. SC/C-arm FL for CVA [id number] Impression: Insertion of right dialysis catheter.
[2020-09-07] MEDS: heparin, porcine 1,000 unit/mL INJ 10 mL 10000 UNIT HE (14:37)
[2020-09-07] MEDS: lidocaine 1% INJ 20 mL SUBCUT (14:38)
--- NOTE | 2020-09-07 14:39 | PM.OP ---
Operative Report Date of procedure: September 07, 2020 Pre-op Diagnosis: Acute on chronic renal failure Post-op diagnosis: same Procedure Done: Placement of 16 [place] 23 cm long AshSplit tunneled hemodialysis catheter in the right internal jugular vein Fluoroscopic guidance and interpretation for placement of catheter Ultrasound guidance to access the right internal jugular vein Surgeon: Bautista Hines Anesthesia: MAC Condition: stable Disposition: PACU Procedure: The patient was taken to the operating room and placed under MAC after IV antibiotic had been administered. The chest and neck were prepped and draped in a sterile manner bilaterally. An ultrasound of the right internal jugular vein revealed patent flow, no thrombus identified. Using introducer needle the internal jugular vein on the right side was accessed and guidewire passed into the right atrium under fluoroscopy. Under fluoroscopy the location for the dialysis catheter was marked. Using 11 blade a skin incision was extended at the vein access site as well as the previously marked location on the right chest wall. The dialysis catheter was attached to the tunneler and passed subcutaneously, exiting at the venous access site. Serial dilators were passed over the guidewire under fluoroscopy. Finally the dilator peel-away sheath was passed over the guidewire and the inner dilator and guidewire was removed and the dialysis catheter was introduced into the right internal jugular vein as the peel-away sheath was removed. The tip of the catheter was noted to be in the right atrium. Both ports of the catheter briana blood and flushed easily. The catheter was sutured to the skin using 2-0 Prolene and the venous access site was closed with 4-0 Monocryl and Dermabond. A total of 5 mL of 1:10,000 heparin was injected into the 2 ports under dialysis catheter. Surgicel was placed around the catheter exit site and pressure dressings were applied. Fluoroscopic guidance and interpretation for passage of guidewire and dilator and placement of catheter in the right atrium.
[2020-09-07 15:13] LABS: KAPPA LIGHT CHAIN, FREE, SERUM 103.5 mg/L (3.3-19.4); KAPPA/LAMBDA LIGHT CHAINS FREE 1.26 (0.26-1.65)
--- NOTE | 2020-09-07 15:29 | PC.NURSE ---
patient taken to dialysis via stretcher, no distress noted.
--- NOTE | 2020-09-07 16:52 | ANE.PACU2 ---
Inpatient post-anesthesia follow up: Airway intact: Yes Vital signs: Temperature 97.6 F Pulse Rate [Monito r] 79 Pulse Rate 79 Respiratory Rate 16 Blood Pressure [Le ft Arm] 159/59 Blood Pressure 154/60 Pulse Oximetry 96 Oxygen Delivery Me thod Nasal Cannula Oxygen Flow Rate 2 Fraction of Inspir ed Oxygen Hydration adequate: Yes Nausea and vomiting: No Pain level: 1 Mental status: Baseline
[2020-09-07 18:14] LABS: Glucose Point of Care 100 mg/dL (70-110)
[2020-09-07] MEDS: cloNIDine 0.1 mg Tablet PO (18:27)
[2020-09-07] MEDS: acetaminophen 325 mg Tablet 650 MG PO (18:28)
[2020-09-07] MEDS: atorvastatin 40 mg Tablet PO (18:28)
[2020-09-07 20:48] LABS: Glucose Point of Care 107 mg/dL (70-110)
[2020-09-07] MEDS: trazodone 50 mg Tablet PO (21:33)
[2020-09-08] VITALS (17 sets, daily range): BP systolic 151–195; BP diastolic 57–70; PULSE 67–85; RESP 16–18; TEMP 36.4–36.9; O2SAT 93–98
[2020-09-08 05:51] LABS: Basophils % 0.2 %; Eosinophils # 0.2 10^3/uL (0.0-0.8); Eosinophils % 1.2 %; Hematocrit 25.5 % (37.0-47.0); Hemoglobin 8.5 g/dL (11.5-15.3); Lymphocytes # 0.7 10^3/uL (0.8-4.8); Lymphocytes % 5.5 %; Mean Corpuscular HGB Conc 33.3 g/dL (30.0-36.0); Mean Corpuscular Hemoglobin 29.7 pg (28.0-34.0); Mean Corpuscular Volume 89.2 fL (81-99); Mean Platelet Volume 11.2 fL (7.4-10.4); Monocytes # 0.9 10^3/uL (0.2-0.9); Neutrophils # 10.96 10^3/uL (1.8-7.7); Neutrophils % 85.6 %; Nucleated Red Blood Cells % 0 %; Platelet Count 160 10^3/cmm (130-400); Red Blood Count 2.86 10^6/uL (4.1-5.3); White Blood Count 12.8 10^3/uL (4.0-10.0)
[2020-09-08] MEDS: hyDRALAzine 50 mg Tablet PO ×3 (06:02→18:27)
[2020-09-08] MEDS: duloxetine 20 mg Capsule PO (06:02)
[2020-09-08] MEDS: isosorbide mononitrate ER 60 mg Tablet PO ×2 (06:02→18:27)
[2020-09-08 06:06] LABS: Alanine Aminotransferase < 5 U/L (0-33); Albumin Level 2.9 g/dL (3.5-5.2); Alkaline Phosphatase 62 IU/L (35-105); Anion Gap 15.2 (5-19); Aspartate Amino Transferase 14 U/L (0-32); Blood Urea Nitrogen 64 mg/dL (8-23); Calcium 8.3 mg/dL (8.5-10.5); Carbon Dioxide 21 mmol/L (22-29); Chloride 105 mmol/L (98-107); Globulin 2.3 g/dL (1.3-4.6); Glucose 89 mg/dL (65-115); Magnesium 1.8 mg/dL (1.7-2.3); Osmolality Calculated 304 mOsm/kg (285-295); Potassium 3.2 mmol/L (3.5-5.1); Sodium 138 mmol/L (136-145); Total Bilirubin 0.5 mg/dL (0.15-1.2); Total Protein 5.2 g/dL (6.6-8.7)
[2020-09-08 06:09] LABS: Phosphorus 3.9 mg/dL (2.5-4.5)
[2020-09-08 06:40] LABS: Glucose Point of Care 104 mg/dL (70-110)
[2020-09-08] MEDS: ipratropium-albuterol 3 mL Neb INHALATION ×3 (08:22→21:49)
[2020-09-08] MEDS: budesonide 0.5 mg/2 mL Neb INHALATION ×2 (08:22→21:49)
[2020-09-08] MEDS: potassium chloride ER 20 mEq Tablet 40 MEQ PO (08:34)
[2020-09-08] MEDS: amlodipine 5 mg Tablet PO (08:34)
--- NOTE | 2020-09-08 08:37 | P.PN_ITS ---
Subjective Subjective: Interval history: seen during dialysis. no complaints Medications: Reviewed: Yes Vitals/I&O/Wt Last Vital Signs Temp 98.3 F 09/08/20 03:57 Pulse 74 09/08/20 08:30 Resp 16 09/08/20 08:22 BP 162/63 09/08/20 06:03 Pulse Ox 94 09/08/20 08:22 09/07/20 09/08/20 09/08/20 22:59 06:59 14:59 Intake Total 305 / 355 Balance 305 / 350 Weight last 48 hrs Weight 59.92 kg Data : 09/08/20 05:26 09/08/20 05:26 Other Labs: albumin 2.9, calcium 8.3, phos 3.9, Mg 1.8 A&P Additional A&P Information 1. ESRD, fluid overload - second HD today, catheter functioning wel 2. Hypokalemia 3. Anemia, iron replete 4. Hypertension. Now that she is ESRD, ARB can be started with plan to disc ontinue clonidine or hydralazine Plan: HD today and again tomorrow. Replace KCl, Nutritional supplements. Epogen at dialysis. Referral to outpatient dialysis. Outpatient evaluation for permanent access. 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
--- NOTE | 2020-09-08 08:39 | PM.PN ---
Subjective Subjective: Interval history: Patient denies any complaints this morning. Denies shortness of breath or chest pain. Her WBC is slightly improved. Hemoglobin down to 8.5. Platelets appear to be stable. Creatinine and BUN improved after dialysis yesterday. Potassium is low at 3.2. Vitals/I&O/Wt Last Vital Signs Temp 98.3 F 09/08/20 03:57 Pulse 74 09/08/20 08:30 Resp 16 09/08/20 08:22 BP 162/63 09/08/20 06:03 Pulse Ox 94 09/08/20 08:22 09/07/20 09/08/20 09/08/20 22:59 06:59 14:59 Intake Total 305 / 355 Balance 305 / 350 Weight last 48 hrs Weight 59.92 kg Physical Exam Narrative: EXAM NARRATIVE: Lungs with decreased breath sounds at bases but otherwise clear.. Heart is regular. Left lower extremity edema. Right chest HD catheter. Data : 09/08/20 05:26 09/08/20 05:26 A&P Assessment and plan (1) GI bleed: This appears to be secondary to recurrent AVM bleeds Status: Acute (2) Acute blood loss anemia: Secondary to what appears to be upper GI bleed due to AVMs which were cauterized this hospitalization. Status: Acute (3) Pleural effusion: Which appears to be the cause of patient's right-sided chest pain. Infection ruled out. Status: Inactive (4) COPD (chronic obstructive pulmonary disease): Currently not in exacerbation Status: Acute Qualifiers: COPD type: unspecified COPD Qualified Code(s): J44.9 - Chronic obstructive pulmonary disease, unspecified (5) Chronic diastolic heart failure: With associated pericardial effusion. Kidney disease appears to be the major cause of patient's fluid overload Status: Acute (6) Type 2 diabetes mellitus: Check hemoglobin A1c Status: Inactive (7) Chronic kidney disease, stage IV (severe): Atrophied right kidney. Chronic. Likely related to diabetes and peripheral vascular disease. Status: Acute (8) Thrombocytopenia: Not present on admission. Consumptive in origin. Improved Status: Acute (9) Chronic respiratory failure with hypoxia: Present on admission. Status: Acute Additional A&P Information PLAN: We will continue current monitoring and treatment and replete potassium. If patient's hemoglobin and kidney function remained stable we could possibly discharge patient home tomorrow. Continue with physical therapy. Attestations Medical Necessity Statement*: Patient with GI bleed and acute kidney injury requires close inpatient monitoring and treatment until deemed safe for discharge. 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
--- NOTE | 2020-09-08 09:10 | PC.NURSE ---
Patient reports difficulty breathing and not liking the current oxymask, RT notified and in to see patient, switched to high flow nasal canula, tolerated well, RT at bedside with patient.
--- NOTE | 2020-09-08 10:25 | PC.SOCIAL ---
IMM Updated. Updated pt on Pg 2 IMM. No questions voiced. Provided pt a copy. Signed, dated, & timed copy in chart.
--- NOTE | 2020-09-08 12:15 | PC.NURSE ---
patient returned from dialysis, no distress noted, brief changed, telemetry resumed, denies pain or needs, continues to refuse lunch tray.
[2020-09-08] MEDS: cefTRIAXone 1,000 MG in sodium chloride 0.9% (plus) 50 ML 100 MG IV (12:25)
[2020-09-08 14:38] LABS: Glucose Point of Care 86 mg/dL (70-110)
[2020-09-08] MEDS: pantoprazole 40 mg SDV IV (15:12)
[2020-09-08 17:45] LABS: Glucose Point of Care 119 mg/dL (70-110)
[2020-09-08] MEDS: cloNIDine 0.1 mg Tablet PO (18:28)
[2020-09-08] MEDS: atorvastatin 40 mg Tablet PO (18:28)
[2020-09-08] MEDS: acetaminophen 325 mg Tablet 650 MG PO (21:33)
[2020-09-08] MEDS: trazodone 50 mg Tablet PO (21:33)
[2020-09-08 21:56] LABS: Glucose Point of Care 98 mg/dL (70-110)
[2020-09-09] VITALS (9 sets, daily range): BP systolic 163–195; BP diastolic 48–74; PULSE 69–83; RESP 18; TEMP 36.4–36.9; O2SAT 93–95; BMI 25.7
[2020-09-09] MEDS: pantoprazole 40 mg SDV IV ×2 (02:52→14:06)
[2020-09-09 04:50] LABS: Basophils % 0.3 %; Eosinophils # 0.1 10^3/uL (0.0-0.8); Eosinophils % 0.4 %; Hematocrit 26.1 % (37.0-47.0); Hemoglobin 8.9 g/dL (11.5-15.3); Lymphocytes # 0.8 10^3/uL (0.8-4.8); Lymphocytes % 6.1 %; Mean Corpuscular HGB Conc 34.1 g/dL (30.0-36.0); Mean Corpuscular Hemoglobin 30.5 pg (28.0-34.0); Mean Corpuscular Volume 89.4 fL (81-99); Mean Platelet Volume 11.4 fL (7.4-10.4); Monocytes # 1.1 10^3/uL (0.2-0.9); Monocytes % 8.4 %; Neutrophils # 11.25 10^3/uL (1.8-7.7); Neutrophils % 84.1 %; Nucleated Red Blood Cells % 0 %; Platelet Count 162 10^3/cmm (130-400); Red Blood Count 2.92 10^6/uL (4.1-5.3); Red Cell Distribution Width 15.9 % (12.1-15.1); White Blood Count 13.4 10^3/uL (4.0-10.0)
[2020-09-09 05:10] LABS: Alanine Aminotransferase 6 U/L (0-33); Albumin Level 2.7 g/dL (3.5-5.2); Alkaline Phosphatase 67 IU/L (35-105); Anion Gap 13.6 (5-19); Aspartate Amino Transferase 17 U/L (0-32); Blood Urea Nitrogen 36 mg/dL (8-23); Calcium 8.2 mg/dL (8.5-10.5); Carbon Dioxide 25 mmol/L (22-29); Chloride 102 mmol/L (98-107); Globulin 2.6 g/dL (1.3-4.6); Glucose 89 mg/dL (65-115); Magnesium 1.7 mg/dL (1.7-2.3); Osmolality Calculated 292 mOsm/kg (285-295); Phosphorus 2.5 mg/dL (2.5-4.5); Potassium 3.6 mmol/L (3.5-5.1); Sodium 137 mmol/L (136-145); Total Bilirubin 0.5 mg/dL (0.15-1.2); Total Protein 5.3 g/dL (6.6-8.7)
[2020-09-09] MEDS: isosorbide mononitrate ER 60 mg Tablet PO (06:47)
[2020-09-09] MEDS: duloxetine 20 mg Capsule PO (06:47)
[2020-09-09] MEDS: hyDRALAzine 50 mg Tablet PO ×2 (06:47→11:12)
[2020-09-09] MEDS: cloNIDine 0.1 mg Tablet PO (06:47)
[2020-09-09 06:51] LABS: Glucose Point of Care 86 mg/dL (70-110)
--- NOTE | 2020-09-09 08:02 | PC.NURSE ---
patient brief and linens saturated in urine, brief changed, hygiene completed, sat up to chair for breakfast, new linens applied to bed, patient pleasantly confused, encouraged to eat, chair alarm set.
[2020-09-09] MEDS: ondansetron 2 mg/ML SDV 2 mL 4 MG IVP (08:49)
--- NOTE | 2020-09-09 08:49 | PC.NURSE ---
Patient vomiting after breakfast, PRN zofran given per doctors orders, cleaned and assisted back to bed, bed alarm activated, call light in reach.
[2020-09-09] MEDS: amlodipine 5 mg Tablet PO (08:50)
--- NOTE | 2020-09-09 09:42 | P.PN_ITS ---
Subjective Subjective: Interval history: nausea and vomiting this AM Medications: Reviewed: Yes Vitals/I&O/Wt Last Vital Signs Temp 98.2 F 09/09/20 08:00 Pulse 76 09/09/20 09:00 Resp 18 09/09/20 09:00 BP 177/74 09/09/20 08:00 Pulse Ox 93 09/09/20 09:00 09/08/20 09/09/20 09/09/20 22:59 06:59 14:59 Intake Total 240 / 410 680 / 1090 Output Total 200 / 200 Balance 240 / 410 480 / 890 Weight last 48 hrs Weight 59.92 kg Weight 59.92 kg Data : 09/09/20 04:24 09/09/20 04:24 A&P Additional A&P Information 1. ESRD, fluid overload - hemodialysis initiated 09/07/20 2. Hypokalemia, improved 3. Anemia, iron replete, due to GI bleed and CKD 4. Hypertension. Now that she is ESRD, ARB can be started with plan to discontinue clonidine or hydralazine Plan: Next HD 09/11/20. Epogen at dialysis. Referral to outpatient dialysis. Outpatient evaluation for permanent access. 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
--- NOTE | 2020-09-09 10:06 | PM.PN ---
Subjective Subjective: Interval history: Patient had hemodialysis yesterday. She denies shortness of breath or chest pain this morning. She is a little disoriented this morning and did not know where she is located. Continues to have leukocytosis. Platelets and hemoglobin appears stable. Vitals/I&O/Wt Last Vital Signs Temp 98.2 F 09/09/20 08:00 Pulse 76 09/09/20 09:00 Resp 18 09/09/20 09:00 BP 177/74 09/09/20 08:00 Pulse Ox 93 09/09/20 09:00 09/08/20 09/09/20 09/09/20 22:59 06:59 14:59 Intake Total 240 / 410 680 / 1090 Output Total 200 / 200 Balance 240 / 410 480 / 890 Weight last 48 hrs Weight 59.92 kg Weight 59.92 kg Physical Exam Narrative: EXAM NARRATIVE: Lungs with decreased breath sounds at bases but otherwise clear.. Heart is regular. Left lower extremity edema. Right IJ HD catheter. Data : 09/09/20 04:24 09/09/20 04:24 A&P Assessment and plan (1) GI bleed: This appears to be secondary to recurrent AVM bleeds Status: Acute (2) Acute blood loss anemia: Secondary to what appears to be upper GI bleed due to AVMs which were cauterized this hospitalization. Status: Acute (3) Pleural effusion: Which appears to be the cause of patient's right-sided chest pain. Infection ruled out. Status: Inactive (4) COPD (chronic obstructive pulmonary disease): Currently not in exacerbation Status: Acute Qualifiers: COPD type: unspecified COPD Qualified Code(s): J44.9 - Chronic obstructive pulmonary disease, unspecified (5) Chronic diastolic heart failure: With associated pericardial effusion. Kidney disease appears to be the major cause of patient's fluid overload Status: Acute (6) Type 2 diabetes mellitus: Check hemoglobin A1c Status: Inactive (7) Chronic kidney disease, stage IV (severe): Atrophied right kidney. Chronic. Likely related to diabetes and peripheral vascular disease. Status: Acute (8) Thrombocytopenia: Not present on admission. Consumptive in origin. Improved Status: Acute (9) Chronic respiratory failure with hypoxia: Present on admission. Status: Acute Additional A&P Information PLAN: Patient's clonidine is now decreased to 0.1 mg daily with plan to completely wean off if blood pressure permits. Dr. Cordova recommends to start ARB and I will initiate losartan 25 mg daily for now. Plan for patient to have dialysis today and tomorrow per Dr. Cordova's note. Continue monitoring CBC. Patient appears to have sundowning and I think will do much better once she is discharged home. Currently plan to dismiss patient home tomorrow after hemodialysis if her hemoglobin is stable. Attestations Medical Necessity Statement*: Patient with GI bleed and kidney injury requires close inpatient monitoring and treatment until deemed safe for discharge. 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
[2020-09-09] MEDS: losartan 50 mg Tablet 25 MG PO (10:23)
--- NOTE | 2020-09-09 10:47 | PC.NURSE ---
patient hallucinating, states, watch out i see that snake on the barbed wire above your head, he may fall off . reoriented to place and situation, no distress noted.
[2020-09-09 10:56] LABS: Glucose Point of Care 115 mg/dL (70-110)
--- NOTE | 2020-09-09 11:07 | PM.PN ---
Subjective Subjective: Interval history: She appears to be a bit confused today, received dialysis yesterday without any problems Vitals/I&O/Wt Last Vital Signs Temp 98.2 F 09/09/20 08:00 Pulse 76 09/09/20 09:00 Resp 18 09/09/20 09:00 BP 177/74 09/09/20 10:23 Pulse Ox 93 09/09/20 09:00 09/08/20 09/09/20 09/09/20 22:59 06:59 14:59 Intake Total 240 / 1090 680 / 1090 Output Total 200 / 200 Balance 240 / 890 480 / 890 Weight last 48 hrs Weight 132 lb 1.6 oz Weight 132 lb 1.6 oz Physical Exam Narrative: EXAM NARRATIVE: Right neck: Tunneled IJ dialysis catheter in place, no cellulitis or hematoma Data : 09/09/20 04:24 09/09/20 04:24 A&P Assessment and plan (1) Chronic kidney disease, stage IV (severe): Status post right IJ tunneled hemodialysis catheter placement Tolerating dialysis, catheter functioning well Status: Acute Attestations Medical Necessity Statement*: Currently on dialysis requiring continued inpatient stay Coding Level of Care Code 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
[2020-09-09] MEDS: cefTRIAXone 1,000 MG in sodium chloride 0.9% (plus) 50 ML 100 MG IV (11:12)
--- NOTE | 2020-09-09 14:35 | P.DS_ITS ---
Discharge Providers Date of Admission: 08/30/20 22:48 Date of Discharge: September 09, 2020 Attending Provider at Admission: Donny Marie Attending Provider at Discharge: Tyrell Cm MD Primary Care Provider: Irasema Charles MD Diagnoses at Discharge Discharge Diagnosis (1) Chronic kidney disease, stage IV (severe): Status: Acute Permanent problem details: And now patient progressed to end-stage renal disease requiring hemodialysis. (2) Chronic respiratory failure with hypoxia: Status: Acute (3) Thrombocytopenia: Status: Acute (4) Chronic diastolic heart failure: Status: Acute Permanent problem details: Acute on chronic diastolic CHF. Present on admission. 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 (6) GI bleed: Status: Acute (7) COPD (chronic obstructive pulmonary disease): Status: Acute Permanent problem details: Not in exacerbation Qualifiers: COPD type: unspecified COPD Qualified Code(s): J44.9 - Chronic obstructive pulmonary disease, unspecified Reason for Visit Reason for Visit: SOB/CHEST TIGHTNESS Hospital Course Hospital Course Patient presented with fluid overload and acute anemia. She was diagnosed with acute on chronic diastolic heart failure. She had significant pleural effusion and underwent thoracentesis. She continued to have drop in hemoglobin and was further evaluated with upper endoscopy requiring cauterization for 3 AVMs noted. Her kidney function gradually worsened and she was seen by nephrology colleagues. Patient was started on hemodialysis. She was treated with high- dose PPI and it appears that her anemia stabilized. Her thrombocytopenia improved. She was deemed okay from nephrology standpoint to be discharged home with outpatient follow-up. Patient wants to have her dialysis performed at [facility] on Friday and Friday and this will be requested. Discussed with patient's daughters who were comfortable for patient to go home. They are aware that GI bleeding can recur again. Patient was told to absolutely avoid any NSAIDs. Patient to take Tylenol if needed. Because of kidney disease I will decrease dose of Protonix to 40 mg daily. If patient will avoid taking NSAIDs and/or vitamin C I think we can hopefully avoid further GI bleed. Outpatient nephrology to address permanent hemodialysis access. Currently patient will keep her tunneled catheter in place. Instructions regarding care were provided. Some medication changes were made and patient to keep blood pressure and heart rate log 3 times daily to present to primary care physician next visit for medication adjustment. Patient has good family support. Patient to continue 2 L of oxygen continuously as she was taking prior to admission. Physical Exam Narrative: EXAM NARRATIVE: Patient's lungs overall show decreased air movement but otherwise clear. Heart is regular. Slight left lower extremity edema noted which appears to be chronic. Right IJ hemodialysis catheter. Discharge Data Data Completed and Pending: Completed Studies During Hospitalization Category Date Time Status CT abdomen pelvis wo con [id number] Rout ine Cat Scan 08/31/[address] chest wo con 7 1250 Routine Cat Scan 08/31/20 08:01 Completed XR chest 1V kulwinder ble [id number] Routine Exams 09/01/20 11:10 Completed XR chest 1V kulwinder ble [id number] Stat Exams 08/30/20 21:06 Completed XR chest 2V* 7104 6 Routine Exams 09/05/20 11:53 Completed Pathology: Surgic al [PTH] Routine Pth 09/04/20 13:33 Completed CV echo complete* [id number] Routine Ultrasound 08/31/20 08:01 [place] [id number] Routin e Ultrasound 09/06/20 10:37 Completed US chest 96619 Ro utine Ultrasound 08/31/20 06:00 Completed US renal BI* 7677 0 Routine Ultrasound 08/31/20 08:11 Completed US thoracentesis [id number] Routine Ultrasound 09/01/20 06:00 Completed Pending at discharge Category Date Time Status Anti-Neutrophil C ytoplasmic AB Rout ine Lab 09/06/20 10:55 Received Complete Blood Co unt w/Auto AM LABS Lab 09/10/20 04:00 Ordered Complete Blood Co unt w/Auto AM LABS Lab 09/11/20 04:00 Ordered Comprehensive Met abolic Panel AM LA BS Lab 09/10/20 04:00 Ordered Comprehensive Met abolic Panel AM LA BS Lab 09/11/20 04:00 Ordered Magnesium AM LABS Lab 09/10/20 04:00 Ordered Magnesium AM LABS Lab 09/11/20 04:00 Ordered Mycobacteria, Cul ture w/Fluor Routi ne Lab 08/31/20 07:54 Results Vitamin D 1,25 Di hydroxy Routine Lab 09/06/20 10:55 Received Labs from last 24 hours 09/09/20 09/09/20 09/09/20 10:51 06:40 04:24 WBC RBC Hgb Hct MCV MCH MCHC RDW Plt Count MPV Neut % (Auto) Lymph % (Auto) [place] % (Auto) Eos % (Auto) Baso % (Auto) Neut # (Auto) Lymph # (Auto) [place] # (Auto) Eos # (Auto) Baso # (Auto) Nucleated RBC % (a uto) Nucleated RBCs # Sodium 137 Potassium 3.6 Chloride 102 Carbon Dioxide 25 Anion Gap 13.6 BUN 36 H Creatinine 2.6 H GFR Calculation Not Reportable Glucose 89 POC Glucose 115 H 86 Calculated Osmolal ity 292 Calcium 8.2 L Phosphorus 2.5 Magnesium 1.7 Total Bilirubin 0.5 AST 17 ALT 6 Alkaline Phosphata se 67 Total Protein 5.3 L Albumin 2.7 L Globulin 2.6 09/09/20 09/08/20 09/08/20 04:24 21:50 17:38 WBC 13.4 H RBC 2.92 L Hgb 8.9 L Hct 26.1 L MCV 89.4 MCH 30.5 MCHC 34.1 RDW 15.9 H Plt Count 162 MPV 11.4 H Neut % (Auto) 84.1 Lymph % (Auto) 6.1 [place] % (Auto) 8.4 Eos % (Auto) 0.4 Baso % (Auto) 0.3 Neut # (Auto) 11.25 H Lymph # (Auto) 0.8 [place] # (Auto) 1.1 H Eos # (Auto) 0.1 Baso # (Auto) 0.0 Nucleated RBC % (a uto) 0 Nucleated RBCs # 0.0 Sodium Potassium Chloride Carbon Dioxide Anion Gap BUN Creatinine GFR Calculation Glucose POC Glucose 98 119 H Calculated Osmolal ity Calcium Phosphorus Magnesium Total Bilirubin AST ALT Alkaline Phosphata se Total Protein Albumin Globulin 09/08/20 12:21 WBC RBC Hgb Hct MCV MCH MCHC RDW Plt Count MPV Neut % (Auto) Lymph % (Auto) [place] % (Auto) Eos % (Auto) Baso % (Auto) Neut # (Auto) Lymph # (Auto) [place] # (Auto) Eos # (Auto) Baso # (Auto) Nucleated RBC % (a uto) Nucleated RBCs # Sodium Potassium Chloride Carbon Dioxide Anion Gap BUN Creatinine GFR Calculation Glucose POC Glucose 86 Calculated Osmolal ity Calcium Phosphorus Magnesium Total Bilirubin AST ALT Alkaline Phosphata se Total Protein Albumin Globulin Vitals: Last Vital Signs Temp 98.4 F 09/09/20 11:42 Pulse 69 09/09/20 13:52 Resp 18 09/09/20 11:42 BP 163/48 09/09/20 11:42 Pulse Ox 95 09/09/20 11:42 Discharge Plan Discharge Patient Disposition: Home Condition: Stable Prescriptions: New losartan 50 mg Tablet 25 mg PO DAILY Qty: 30 RF: 0 clonidine HCl 0.1 mg Tablet 0.1 mg PO BID@0700,1900 Qty: 60 RF: 0 hydralazine 50 mg Tablet 50 mg PO TID@,, PRN (Reason: Blood pressure more than 160/100) Qty: 60 RF: 0 Continued ipratropium-albuterol 0.5 mg-3 mg(2.5 mg base)/3 mL solution for nebulization 3 ml inhalation QID 30 Days Qty: 320 RF: 3 budesonide [Pulmicort] 0.5 mg/2 mL suspension for nebulization 0.5 mg inhalation BID 30 Days Qty: 120 RF: 3 furosemide [Lasix] 20 mg tablet 40 mg PO DAILY 30 Days Qty: 60 RF: 0 carvedilol 12.5 mg Tablet 12.5 mg PO BID@0 RF: 0 atorvastatin 40 mg Tablet 40 mg PO BEDTIME@1899 RF: 0 amlodipine 5 mg Tablet 5 mg PO BID@699,0 RF: 0 isosorbide mononitrate 60 mg Tablet Extended Release 24 Hr 60 mg PO BID@ RF: 0 alprazolam [Xanax] 0.25 mg Tablet 0.25 - 0.5 mg PO DAILY PRN (Reason: Anxiety) RF: 0 pantoprazole 40 mg Tablet,Delayed Release (Dr/Ec) 40 mg PO DAILY@0700 RF: 0 albuterol sulfate 90 mcg/actuation Hfa Aerosol Inhaler 2 puff INHALATION 6XD PRN (Reason: Shortness Of Breath) RF: 0 duloxetine 20 mg Capsule,Delayed Release(Dr/Ec) 20 mg PO DAILY@07 RF: 0 cholecalciferol (vitamin D3) [Vitamin D3] 50 mcg (2,000 unit) Capsule 50 mcg PO DAILY@1900 RF: 0 potassium chloride 20 mEq Tablet Extended Release See Rx Instructions .ROUTE .COMPLEX RF: 0 Changed ferrous sulfate 325 mg (65 mg iron) Tablet 325 mg PO EVERY OTHER DAY Qty: 0 RF: 0 Discontinued clonidine HCl 0.2 mg Tablet 0.2 mg PO BID@0700,1900 RF: 0 ascorbic acid (vitamin C) [Vitamin C] 500 mg Tablet 500 mg PO DAILY@1900 RF: 0 hydralazine 100 mg Tablet 100 mg PO TID@,, RF: 0 ibuprofen 200 mg Tablet 400 mg PO ONCE PRN (Reason: Pain) RF: 0 Discharge Orders: Discharge Order (Routine); Ordered 09/09/20 Ordered By: Tyrell Cm Other Ambulatory Orders: Complete Blood Count w/Auto (Routine) Timeframe: 20200912 Location: Determined by Patient Ordered By: Tyrell Cm Comprehensive Metabolic Panel (Routine) Timeframe: 20200912 Facility: [facility] - Location: Lab - Main Lab Ordered By: Tyrell Cm Referrals: [facility] [Outside] Irasema Charles MD [Primary Care Provider] - 09/11/20 9:00 am (Please talk to Dr. Charles about [facility] and ask that she send your referral to [facility] so that they can start services. ) Dennis Petit MD [Referring] - 1-3 days (Please call [facility] and schedule an appointment to see Dr. Petit.) Discharge Diet: Usual diet Discharge Activity: Increase activity as tolerated Patient Instructions: Anemia, Clonidine (By mouth), Hydralazine (By mouth), Losartan (By mouth), Chronic Kidney Disease (DC), Hemodialysis (DC), Dialysis Diet (GEN), Thrombocytopenia (DC) Activity Restrictions/Additional Instructions: Please call your doctor or present to emergency department if your condition worsens or you develop diarrhea, lightheadedness, fatigue or see blood in your stool or black stool. Please absolutely avoid any NSAIDs and do not take vitamin C. Please monitor blood pressure and heart rate log 3 times daily to present to your primary care physician next visit for medication adjustment. Please take hydralazine on as-needed basis for blood pressure more than 160/100. Please note that several medications changes were made. Discharge Attestations Time Spent in Discharge Care*: greater than 30 min Quality Metrics Clinical Quality Measures During this hospital stay, did patient experience: None Coding Level of Care Code Acute Supervisor [place] for Faye Fry Diagnoses Chronic kidney disease, stage IV (severe) N18.4 Chronic respiratory failure with hypoxia J96.11 Thrombocytopenia D69.6 Chronic diastolic heart failure I50.32 Acute blood loss anemia D62 GI bleed K92.2 COPD (chronic obstructive pulmonary disease) J44.9 COPD type: unspecified COPD
--- NOTE | 2020-09-09 15:53 | PC.NURSE ---
Discharge instructions completed with patient and patients daughter, instructions on dialysis catheter management completed, denies further questiosns or concerns, dialysis catheter in place on discharge for out patient dialysis per Dr. Knight orders.
[2020-09-12 14:27] LABS: Vit D 1,25 (Oh)2, Total 14 pg/mL (18-72); Vit D2 1,25 (Oh)2 <8 pg/mL; Vit D3 1,25 (Oh)2 14 pg/mL
[2020-09-12 21:37] LABS: ANCA Interp Negative (Negative)
== END 2020-09-09 15:54 | disposition home or self-care (01) | DRG 377 ==
LOC: ER 22:53 → MEDSURG 08-31 00:03
PROVIDERS: Internal Medicine Nephrology; Surgery; Admitting Provider Internal Medicine; Emergency Provider Emergency Medicine; PCP Family Medicine; Visit Provider Internal Medicine
PROC: 0DJ08ZZ Inspection of Upper Intestinal Tract, Via Natural or Artificial Opening Endoscopic (ICD-10-PCS; CPT 43235; principal; 2020-09-04 10:30)
PROC: 0JH63XZ Insertion of Tunneled Vascular Access Device into Chest Subcutaneous Tissue and Fascia, Percutaneous Approach (ICD-10-PCS; principal; 2020-09-07 12:50)
DX: K92.2 Gastrointestinal hemorrhage, unspecified (principal); N18.6 End stage renal disease; I50.33 Acute on chronic diastolic (congestive) heart failure; D62 Acute posthemorrhagic anemia; I31.3 Pericardial effusion (noninflammatory); J90 Pleural effusion, not elsewhere classified; J96.11 Chronic respiratory failure with hypoxia; I13.2 Hypertensive heart and chronic kidney disease with heart failure and with stage 5 chronic kidney disease, or end stage renal disease; D69.6 Thrombocytopenia, unspecified; Z99.2 Dependence on renal dialysis; E78.5 Hyperlipidemia, unspecified; J44.9 Chronic obstructive pulmonary disease, unspecified; F03.90 Unspecified dementia, unspecified severity, without behavioral disturbance, psychotic disturbance, mood disturbance, and anxiety; Z95.5 Presence of coronary angioplasty implant and graft
CPT/HCPCS: 12345; 32555; 36415; 36416; 36430; 36600; 43239; 43255; 43270; 51798; 71045; 71046; 71250; 74176; 76604; 76770; 77001; 80048; 80053; 80500; 81001; 82306; 82310; 82570; 82652; 82728; 82803; 82945; 82962; 83036; 83516; 83540; 83550; 83615; 83735; 83880; 83883; 83970; 83986; 84100; 84157; 84260; 84443; 84484; 85014; 85018; 85025; 85610; 86706; 86803; 86850; 86900; 86920; 87015; 87116; 87206; 87340; 87801; 88305; 89050; 90935; 93005; 93306; 93971; 94640; 94762; 96372; 97161; 97530; 99282; C1750; C9113; J0696; J1630; J1644; J1815; J2405; J2704; J2930; J3010; J3490; J7030; J7611; J7626; P9040; Q3014